=== PATIENT | female | born 1980 | race Caucasian/White ===

== ENCOUNTER → 2016-12-24 | Outpatient (CLI) | payer OTHER ==
--- NOTE | 2016-12-24 15:14 | US ---
EXAMINATION TYPE: US bladder DATE OF EXAM: 12/24/2016 COMPARISON: NONE CLINICAL HISTORY: N39.44 BEDWETTING. Pt states bedwetting x 3 months EXAM MEASUREMENTS: Post Void Residual Volume: 1.7 mL Pt stated at time of exam bladder felt very full before voiding Color Doppler performed to assess ureteral jets. Bilateral Jets seen: Only left jet visualized Normal Post Void Residual (less than 50ml): Yes IMPRESSION: Bladder distends normally with no significant post void residual.
== END | disposition home or self-care (01) ==
LOC: RADUSWWP 14:37
PROVIDERS: ATTEND Family Medicine
DX: N39.44 Nocturnal enuresis (principal)
CPT/HCPCS: 76857

== ENCOUNTER → 2016-12-26 | Outpatient (CLI) | payer OTHER ==
--- NOTE | 2016-12-26 15:15 | FL ---
Voiding cystourethrogram HISTORY: Nocturnal enuresis, N39.44 Patient's urinary bladder was catheterized by the radiology nurse. Patient's urinary bladder was filled in a retrograde manner under intermittent fluoroscopic observati on with radiographic contrast. 1 minute 2 seconds fluoroscopy time supplied. Under real-time fluoroscopy the patient was asked to void in the lateral projection following removal of the catheter. Urinary bladder shows no filling defect. There is normal emptying of the urinary bladder, urethra etelvina ws a normal appearance. Fallopian tubal ligation clips are noted incidentally. IMPRESSION: Normal voiding cystourethrogram.
== END | disposition home or self-care (01) ==
LOC: RADFLWHC 13:42
PROVIDERS: ATTEND Family Medicine
DX: N39.44 Nocturnal enuresis (principal); Z88.1 Allergy status to other antibiotic agents
CPT/HCPCS: 74455; Q9962

== ENCOUNTER → 2017-01-01 | Outpatient (CLI) | payer OTHER ==
--- NOTE | 2017-01-02 07:40 | EEG ---
DATE OF SERVICE: 01/01/2017 ELECTROENCEPHALOGRAPHIC EXAMINATION REPORT INDICATION FOR EXAMINATION: This patient is a 36-year-old female being evaluated for a possible seizure disorder. Patient has history of epileptic seizures as a trial period. Patient now with bedwetting. This is a sleep- deprived EEG. AGE: 36 EEG FINDINGS: A routine, 21 channel awake digital EEG recording was accomplished utilizing the 10 - 20 international system with bipolar and referential montages. The background activity in the most alert resting state consists of a low to medium amplitude, fairly well-developed and well-sustained 7 - 8 Hz activity over the posterior head regions. This posterior rhythm attenuates to eye opening. There is a small amount of low amplitude 18 - 20 Hz beta activity seen maximally over the anterior head regions. Muscle and movement artifact was observed on a few occasions during the tracing. Hyperventilation failed to add any additional information to the tracing. No further activation was noted. Photic stimulation at flash frequencies of 2 - 30 Hz produced a minimal occipital driving response. No epileptiform discharges were seen. IMPRESSION: This was a normal sleep-deprived EEG. The EEG failed to reveal any focal, lateralized or epileptiform abnormalities. Patient did not show much levels of deep sleep during this recording. May consider repeat study if indicated. Clinical correlation is recommended. RUTH
== END | disposition home or self-care (01) ==
LOC: NEUROMAIN 09:31
PROVIDERS: ATTEND Family Medicine
DX: R56.9 Unspecified convulsions (principal)
CPT/HCPCS: 95819

== ENCOUNTER → 2017-09-24 | Outpatient (CLI) | payer OTHER ==
--- NOTE | 2017-09-25 08:53 | MM ---
Reason for exam: clinical finding. Baseline mammogram. History: Family history of breast cancer in maternal cousin at age 30. Indicated problem(s): lump or thickening in the right breast. Physical Findings: Nurse Summary: 1cm, 0.5cm nodule in the right breast at 11 o'clock (nurse mj). [facility] Diagnostic Mammo w CAD JUVENAL Bilateral CC and MLO view(s) were taken. The breast tissue is heterogeneously dense. This may lower the sensitivity of mammography. Two palpable markers upper outer quadrant right breast. Extensive regional calcifications upper outer quadrant in dense tissues. The majority of these layer compatible with benign milk of calcium. Some underlying nodularity right upper outer quadrant. These results were verbally communicated with the patient and result sheet given to the patient on 09/24/17. ASSESSMENT: Incomplete: need additional imaging evaluation, BI-RAD 0 RECOMMENDATION: Ultrasound of the right breast. (upper outer quadrant including palpables)
--- NOTE | 2017-09-25 09:02 | USB ---
Reason for exam: additional evaluation requested from abnormal screening. History: Family history of breast cancer in maternal cousin at age 30. US Breast Limited RT Right limited breast ultrasound including focal area of concern, retroareolar and axilla demonstrates a 1.1 x 0.8 x 0.4cm oval complex cyst versus cyst cluster at 9 o'clock for which a 6 month follow up is recommended, a 0.7 x 0.9 x 0.5cm oval, cystic, lobulated, benign lesion at 10 o'clock, a 1.7 x 1.9 x 1.6cm oval, cystic, palpable, benign lesion at 10 o'clock and a 1.0 x 0.9 x 0.8cm oval, cystic, palpable, benign lesion at 10 o'clock. These results were verbally communicated with the patient and result sheet given to the patient on 09/24/17. ASSESSMENT: Probably benign, BI-RAD 3 RECOMMENDATION: Follow-up diagnostic mammogram and ultrasound of the right breast in 6 months.
== END | disposition home or self-care (01) ==
LOC: RADMAMWWP 13:25
PROVIDERS: ATTEND Family Medicine
DX: N63.0 Unspecified lump in unspecified breast (principal); R92.8 Other abnormal and inconclusive findings on diagnostic imaging of breast; Z80.3 Family history of malignant neoplasm of breast
CPT/HCPCS: 77066

== ENCOUNTER → 2018-06-12 | Outpatient (CLI) | payer OTHER ==
--- NOTE | 2018-06-12 21:33 | MR ---
EXAMINATION TYPE: MR lumbar spine wo con DATE OF EXAM: 06/12/2018 COMPARISON: 12/24/2014 HISTORY: Degenerative disc change, low back pain x10 years CONTRAST: 0 mL intravenous Gadavist. TECHNIQUE: Multiplanar, multisequence images of the lumbar spine were acquired. FINDINGS: Scoliosis is present. Cord terminates at the L1 level. L5-S1: Broad-based disc bulge is present with mild anterior thecal sac compression. No AP spinal marty l stenosis present. Some extension of disc into the left foramen may be present mild left foraminal s tenosis is present. This is smaller than the prior disc herniation at this level. L4-L5: No significant disc bulge or disc herniation. No spinal canal stenosis. No foraminal stenosi s. Mild facet hypertrophy is present. L3-L4: No significant disc bulge or disc herniation. No spinal canal stenosis. No foraminal stenosi s. Mild facet hypertrophy is present L2-L3: Mild flattening of the thecal sac from mild disc bulge is present. No AP spinal canal stenosis is present. No spinal canal stenosis. No foraminal stenosis. L1-L2: No significant disc bulge or disc herniation. No spinal canal stenosis. No foraminal stenosi s. T12-L1: No significant disc bulge or disc herniation. No spinal canal stenosis. No foraminal stenos is. IMPRESSION: 1. L5-S1 left paracentral disc herniation is diminished in size from the comparison.
== END ==
LOC: RADMRIMAIN 16:06
PROVIDERS: ATTEND Physical Medicine & Rehabilitation
DX: M51.27 Other intervertebral disc displacement, lumbosacral region (principal)
CPT/HCPCS: 72148

== ENCOUNTER 2018-08-28 09:29 | Day surgery (SDC) | payer OTHER ==
[2018-08-28 10:07] VITALS: TEMP 98.3
[2018-08-28] MEDS ORDERED: LACTATED RINGERS 1,000 ML IV SCH (10:17)
--- NOTE | 2018-08-28 11:04 | P.PCN ---
Date of Procedure: 08/28/18 Procedure(s) Performed: PREOPERATIVE DIAGNOSIS: 1- Lumbar herniated disc disease. 2-Lumbar radiculopathy. 3-right sacroiliitis POSTOPERATIVE DIAGNOSIS: Same as preop diagnosis. PROCEDURE 1. Lumbar epidural steroid injection under fluoroscopic guidance at the L5-S1 level. 2. Lumbar epidurogram. 3-right sacroiliac joint steroid injections under fluoroscopy guidance ANESTHESIA: Local with 1% lidocaine 3 ml and , moderate sedation with intravenous Versed 2 mg ,and fentanyle 100 Mcg EBL: Minimal PROCEDURE INDICATION: The patient with low back pain and radiculitis symptoms unresponsive to conservative treatment. Fluoroscopy was used to optimize visualization of the needle placement and to maximize safety. PROCEDURE DESCRIPTION / TECHNIQUE: The patient was seen and identified in the preoperative area. Risks, benefits, complications including but not limited to infections ,bleeding ,allergic reaction to the medications ,nerve damage and not complete pain releife , and alternatives were discussed with the patient. The patient agreed to proceed with the procedure and signed the consent. IV was started, and vital signs were stable. Patient was taken to the OR and time out was completed. The patient was placed in the prone position on procedure table and a pillow was placed under the abdomen to reduce lumbar lordosis. The lumbosacral area was prepped and draped in the usual sterile fashion.ere closely monitored during the procedure. Conscious sedation was used during the procedure to decrease patients anxiety. Vital signs was monitered during the entire procedure. Using anterior-posterior fluoroscopy, the L5-S1 interlaminar space was identi fied and the skin over this site was marked and then infiltrated with 1% lidocaine subcutaneously. Subsequently, a 20-gauge Tuohy epidural needle was inserted and advanced toward the epidural space using the ``Loss of resistance technique and guided by AP and lateral fluoroscopy. The correct needle position in the epidural space was verified with the injection of 2 mL of the water soluble contrast dye Isovue 200 contrast and observing an excellent epidurogram with the epidural spread of the dye, after negative aspiration for blood and CSF and in the absence of paresthesias. Again after negative aspiration, a 6 ml mixture containing 60 mg of Depo-medrol , and 2 ml of preservative free Normal Saline, and 2 ml of preservative free lidocaine 1% solution was injected and a washout of epidurogram was seen. Description of the procedure for the right sacroiliac joint = , Then under strict sterile technique, fthe right sacroiliac joint the which was identified under fluoroscopy guidance been local infiltration of the skin and subcu interstitial with lidocaine 1% then 25-gauge Quincke Needle advanced slowly under fluoroscopy and placed in the right sacroiliac joint needle placement confirmed with AP and oblique and lateral view and after appropriate needle placement confirmed and after negative aspiration, or heme , then Ropivacaine 0.5% 3 mL, and 20 mg of Depo-Medrol mixed together and injected in the right sacroiliac joint after negative aspiration patient tolerated the procedure well without any complication. COMPLICATIONS: None DISPOSITION / PLANS: The patient was placed in a supine position and transferred to the recovery area in a stable condition for observation. There was no evidence of lower extremity motor or sensory deficit after the procedure. Patient was discharged from the recovery room after meeting discharge criteria. Home discharge instructions were given to the patient by the staff. The patient was reexamined prior to discharge. The patient will schedule a follow up in the clinic in 2-4 weeks.
[2018-08-28] MEDS ORDERED: IV FLUID CONTINUATION 1,000 ML IV ONE (11:05)
[2018-08-28 11:10] VITALS: BP 100/52; PULSE 79; RESP 18
--- NOTE | 2018-08-28 14:35 | FL ---
Fluoroscopy INDICATION: Pain FINDINGS: Fluoroscopy time: 5 seconds. Images obtained: 2. IMPRESSIONS: 1. Documentation of fluoroscopy.
== END 2018-08-28 11:33 | disposition home or self-care (01) ==
LOC: ORPAIN 09:29
PROVIDERS: ATTEND Specialist
DX: M51.16 Intervertebral disc disorders with radiculopathy, lumbar region (principal); M46.1 Sacroiliitis, not elsewhere classified; Z88.7 Allergy status to serum and vaccine
CPT/HCPCS: 81025; 62323; J2250; J1030; J3010; Q9966; G0260; 27096; 99152

== ENCOUNTER 2018-09-11 10:05 | Day surgery (SDC) | payer OTHER ==
[2018-09-10 12:03] VITALS: BMI 23.8
[~2018-09-11 10:05] MED LIST: LACTATED RINGERS 1,000 ML IV SCH
[2018-09-11 10:51] VITALS: TEMP 97.2
[2018-09-11] MEDS ORDERED: LIDOCAINE 1% 20 ML VIAL (10MG/ML) FOR IV START INTRADERMA ONE (10:57)
--- NOTE | 2018-09-11 11:30 | P.PCN ---
Date of Procedure: 09/11/18 Procedure(s) Performed: PREOPERATIVE DIAGNOSIS: 1- Lumbar herniated disc disease. 2-Lumbar radiculopathy. 3-right sacroiliitis POSTOPERATIVE DIAGNOSIS: Same as preop diagnosis. PROCEDURE 1. Lumbar epidural steroid injection under fluoroscopic guidance at the L5-S1 level. 2. Lumbar epidurogram. 3-right sacroiliac joint steroid injections under fluoroscopy guidance ANESTHESIA: Local with 1% lidocaine 3 ml and , moderate sedation with intravenous Versed 2 mg ,and fentanyle 150 Mcg EBL: Minimal PROCEDURE INDICATION: The patient with low back pain and radiculitis symptoms unresponsive to conservative treatment. Fluoroscopy was used to optimize visualization of the needle placement and to maximize safety. PROCEDURE DESCRIPTION / TECHNIQUE: The patient was seen and identified in the preoperative area. Risks, benefits, complications including but not limited to infections ,bleeding ,allergic reaction to the medications ,nerve damage and not complete pain releife , and alternatives were discussed with the patient. The patient agreed to proceed with the procedure and signed the consent. IV was started, and vital signs were stable. Patient was taken to the OR and time out was completed. The patient was placed in the prone position on procedure table and a pillow was placed under the abdomen to reduce lumbar lordosis. The lumbosacral area was prepped and draped in the usual sterile fashion.ere closely monitored during the procedure. Conscious sedation was used during the procedure to decrease patients anxiety. Vital signs was monitered during the entire procedure. Using anterior-posterior fluoroscopy, the L5-S1 interlaminar space was identified and the skin over this site was marked and then infiltrated with 1% lidocaine subcutaneously. Subsequently, a 20-gauge Tuohy epidural needle was inserted and advanced toward the epidural space using the ``Loss of resistance technique and guided by AP and lateral fluoroscopy. The correct needle position in the epidural space was verified with the injection of 2 mL of the water soluble contrast dye Isovue 200 contrast and observing an excellent epidurogram with the epidural spread of the dye, after negative aspiration for blood and CSF and in the absence of paresthesias. Again after negative aspiration, a 6 ml mixture containing 60 mg of Depo-medrol , and 2 ml of preservative free Normal Saline, and 2 ml of preservative free lidocaine 1% solution was injected and a washout of epidurogram was seen. Description of the procedure for the right sacroiliac joint = , Then under strict sterile technique, fthe right sacroiliac joint the which was identified under fluoroscopy guidance been local infiltration of the skin and subcu interstitial with lidocaine 1% then 25-gauge Quincke Needle advanced slowly under fluoroscopy and placed in the right sacroiliac joint needle plac ement confirmed with AP and oblique and lateral view and after appropriate needle placement confirmed and after negative aspiration, or heme , then Ropivacaine 0.5% 3 mL, and 20 mg of Depo-Medrol mixed together and injected in the right sacroiliac joint after negative aspiration patient tolerated the procedure well without any complication. COMPLICATIONS: None DISPOSITION / PLANS: The patient was placed in a supine position and transferred to the recovery area in a stable condition for observation. There was no evidence of lower extremity motor or sensory deficit after the procedure. Patient was discharged from the recovery room after meeting discharge criteria. Home discharge instructions were given to the patient by the staff. The patient was reexamined prior to discharge. The patient will schedule a follow up in the clinic in 2-4 weeks.
[2018-09-11] MEDS ORDERED: IV FLUID CONTINUATION 1,000 ML IV ONE (11:32)
[2018-09-11 11:36] VITALS: RESP 18
--- NOTE | 2018-09-11 11:37 | FL ---
EXAMINATION TYPE: FL guided pain mgmt statistic DATE OF EXAM: 09/11/2018 CLINICAL HISTORY: Sacroiliac joint pain. TECHNIQUE: Fluoroscopy. COMPARISON: None. FINDINGS: Fluoroscopic guidance was provided during pain relief procedure performed by Dr. Gonzalez . A total of 6 seconds of fluoroscopic time was utilized during the procedure and two spot images ar e acquired. Images acquired shows needle localization of the sacroiliac joints. IMPRESSION: As Above.
[2018-09-11 12:04] VITALS: BP 100/68; PULSE 67
== END 2018-09-11 12:05 | disposition home or self-care (01) ==
LOC: ORPAIN 10:05
PROVIDERS: ATTEND Specialist
DX: M51.16 Intervertebral disc disorders with radiculopathy, lumbar region (principal); M46.1 Sacroiliitis, not elsewhere classified; Z88.2 Allergy status to sulfonamides; Z88.1 Allergy status to other antibiotic agents
CPT/HCPCS: 81025; 62323; J2250; J1030; J3010; Q9966; G0260; 27096; 99152

== ENCOUNTER → 2018-10-02 | Outpatient (CLI) | payer OTHER ==
[2018-10-02 13:19] VITALS: BP 105/68; PULSE 71; RESP 18
--- NOTE | 2018-10-02 13:51 | P.PN ---
Progress Note - Text Progress Note Date: 10/02/18 This is a 38-year-old female who presents for her first follow-up visit after 2 epidural steroid injections starting the left L5-S1 interspace. She is reporting relief greater than 50% of radicular symptoms. She still having some pain in the posterior aspect of her left leg however significantly diminished. Her chief complaint today is neck pain as well as weakness in her upper and lower extremities. She states that her gait has been off over the past 4-6 months. Even her significant other has commented that she walks "as if she is drunk". Pain is worse on the right side with radiating pain periodically into her right bicep. She's noticed difficulty with handling objects and dropping items frequently. VAS today is a 4-6 out of 10 in severity mostly in her neck and into her right shoulder and upper arm. Aggravating factors are rotation of her head, activity, and reaching for objects. Alleviating factors are rest and placing her right arm above her head. In addition to above, 13-point review of systems is also negative for chest pain, shortness of breath, changes in vision, changes in hearing, new onset weakness, abdominal pain, diarrhea, extreme fatigue, malaise, fever, skin changes, homicidal or suicidal ideation, or bowel or bladder incontinence. Vital Signs: Reviewed in EMR Gen: WDWN, AAOx3, NAD HEENT: NCAT, EOMI, hearing grossly normal Pulm: resp unlabored Abd: soft, NT, ND Neck: supple, trachea midline Cervical Spine motor stregnth in the deltoid normal, symmetrical weakness in bilateral bicep flexion motor stregnth biceps and the wrist ex tensors normal bilateral motor stregnth in the triceps symmetrically decreased bilaterally Deep tendon reflexes 3+ right bicep, diminished left biceps and brachial radialis Spurling test: positive Neck distraction test: positive Wren sign: positive on the right positive cervical facet loading test . Lumber spine moter stegnth lower extremities ,thigh and legs 5/5 Right side , 5/5 Left side deep tendon reflexes : 3+ right patella , 2+ left patella Positive paresthesia on the left anterior thigh positive lumber facet Loading Test Range of motion of the lumbar spine Flexion 30 degrees, extension 10 degrees strait leg raising test , positive at 45 degree Fabere test positive RT and positive LT . Severe tenderness over the sacroiliac joint on the right side only Neuro: CN II-XII grossly intact, muscle strength lower extremities PRESERVED Imaging: MRI lumbar spine reviewed showing left neural foraminal impingement L5- S1. Cervical MRI from 2016 reviewed that showed bulging disc at C5-C6 without any significant thecal sac effacement. Assessment: 1. Lumbar radiculopathy 2. Cervical spinal stenosis with myelopathy 3. Lumbar spondylosis 4. Tobacco dependency Plan: 1. Explanation: Opioid and psychological risk scores were reviewed. Diagnoses, prognoses, and multiple treatment options including but not limited to physical therapy, interventional therapies, adjuvant medical therapies, narcotic medication therapies, and surgery were discussed with the patient and all questions were answered to the patient's satisfaction. 2. Opioid agreement: None 3. Counseling: The patient was counseled extensively on SMOKING CESSATION and EXERCISE. Specifically, the patient was instructed regarding the importance of smoking cessation, counseling was given. 4. Procedures: Left lumbar epidural steroid injection L5-S1 #3 5. Consultations: Consider referral to workers compensation specialist after review of cervical MRI 6. Investigations: MRI cervical spine without contrast 7. Medications: None 8. Disposition: After reviewing patient's MRI of her cervical spine from 2016 I'm concerned she could be experiencing progression of pathology at C5-C6. Her progressive gait disturbance is over the past 4-6 months, upper and lower extremity weakness, and hyperreflexia on the right side and concern for spinal stenosis with myelopathy. I'm ordering a repeat MRI of her cervical spine without contrast and encouraged her to completed prior to her third epidural steroid injection so it can be reviewed with the physician that day. We discussed that she may need cervical epidural steroid injections and/or consultation to a workers compensation specialist if decompression surgery is required. Patient had full understanding of ongoing issue and we'll get the MRI done immediately. All questions were answered in detail. PQRS measures: 1-Patient's medications are documented in the chart. 2-Tobacco use is positive, counseling given 3-Patient has not had a pneumococcal vaccine. 4-Advanced care planning discussed, patient unable to give. 5-Opioid contract signed with the patient. 6-Pain positive, follow-up visit or procedure scheduled 7-Patient's blood pressure measured and documented, and WNL. 8-Patient's weight was measured, and body mass index normal 9-Patient WAS NOT identified as an unhealthy alcohol user.
== END | disposition home or self-care (01) ==
LOC: PNWHC3 13:04
PROVIDERS: ATTEND Anesthesiology
DX: M48.02 Spinal stenosis, cervical region (principal); M47.26 Other spondylosis with radiculopathy, lumbar region; F17.200 Nicotine dependence, unspecified, uncomplicated; Z71.6 Tobacco abuse counseling
CPT/HCPCS: 99211

== ENCOUNTER → 2018-10-11 | Outpatient (CLI) | payer OTHER ==
--- NOTE | 2018-10-11 18:15 | MR ---
EXAMINATION TYPE: MR cervical spine wo con DATE OF EXAM: 10/11/2018 COMPARISON: Prior cervical spine MRI 06/29/2015 HISTORY: Spinal stenosis, cervical / Radiculopathy. Hx of clavicle surgery TECHNIQUE: Multiplanar, multisequence images of the cervical spine were acquired. C2-C3: No evidence for degenerative disc disease. No disc bulge/herniation or protrusion. No Canal stenosis. Foramina are patent bilaterally. C3-C4: No evidence for degenerative disc disease. No disc bulge/herniation or protrusion. No Canal stenosis. Foramina are patent bilaterally. C4-C5: No significant abnormality. C5-C6: Posterior broad-based disc bulge causes mild anterior mass effect on the thecal sac as on prio r exam. Uncovertebral joint hypertrophy results in bilateral foraminal encroachment. C6-C7: No evidence for degenerative disc disease. No disc bulge/herniation or protrusion. No Canal stenosis. Foramina are patent bilaterally. C7-T1: No evidence for degenerative disc disease. No disc bulge/herniation or protrusion. No Canal stenosis. Foramina are patent bilaterally. Cervical segments are intact. There is normal alignment. Cervical spinal cord is of normal signal. Craniovertebral junction relationships are within normal limits. Cervical vertebral bodies show pre served height. Bone marrow signal is stable. Loss of disc height again noted at C5-6. IMPRESSION: Stable mild degenerative disc disease.
== END | disposition home or self-care (01) ==
LOC: RADMRIMAIN 08:27
PROVIDERS: ATTEND Anesthesiology
DX: M50.122 Cervical disc disorder at C5-C6 level with radiculopathy (principal)
CPT/HCPCS: 72141

== ENCOUNTER 2018-10-14 06:35 | Day surgery (SDC) | payer OTHER ==
[2018-10-09 11:22] VITALS: BMI 22.3
[2018-10-14 06:52] VITALS: RESP 16; TEMP 98.2
[2018-10-14] MEDS ORDERED: LIDOCAINE 1% 20 ML VIAL (10MG/ML) FOR IV START INTRADERMA ONE (07:03)
--- NOTE | 2018-10-14 07:55 | P.PCN ---
Date of Procedure: 10/14/18 Surgeon: Ronn Arzola Pathology: none sent Condition: stable Disposition: PACU Description of Procedure: PREOPERATIVE DIAGNOSIS: 1-Lumbar radiculopathy 2- Lumber Degenerative Disc Diseases. POSTOPERATIVE DIAGNOSIS: 1-Lumbar Degenerative Disc Diseases PROCEDURE 1. Lumbar epidural steroid injection under fluoroscopic guidance at the L5-S1 level in the left paramedian approach 2. Lumbar epidurogram. ANESTHESIA: Local with 1% lidocaine; and IV moderate conscious sedation with Versed and fentanyl EBL: Minimal PROCEDURE INDICATION: The patient with low back pain and radiculitis symptoms unresponsive to conservative treatment. Fluoroscopy was used to optimize visualization of the needle placement and to maximize safety. PROCEDURE DESCRIPTION / TECHNIQUE: The patient was seen and identified in the preoperative area. Risks, benefits, complications including but not limited to infections ,bleeding ,allergic reaction to the medications ,nerve damage and not complete pain relief , and alternatives were discussed with the patient. The patient agreed to proceed with the procedure and signed the consent. IV was started, and vital signs were stable. Patient was taken to the OR and time out was completed. The patient was placed in the prone position on procedure table and a pillow was placed under the abdomen to reduce lumbar lordosis. The lumbosacral area was prepped and draped in the usual sterile fashion with ChloraPrep.Patient was closely monitored during the procedure. Conscious sedation was used during the procedure to decrease patients anxiety. Vital signs were monitered during the entire procedure. Using anterior-posterior fluoroscopy, the L5-S1 interlaminar space was identified and the skin over this site was marked and then infiltrated with 1% lidocaine subcutaneously. Subsequently, a 18-gauge Tuohy epidural needle was inserted and advanced toward the epidural space using the Loss of resistance to air technique and guided by AP and lateral fluoroscopy. The correct needle position in the epidural space was verified with the injection of 1 mL of the water soluble contrast dye Omnipaque 180 contrast and observing an excellent epidurogram with the epidural spread of the dye, after negative aspiration for blood and CSF and in the absence of paresthesias. Again after negative aspiration, a 8 ml mixture containing 40 mg of Kenalog and 5 ml of preservative free Normal Saline, and 2 ml of preservative free ropivacaine 0.5% solution was injected and a washout of epidurogram was seen. Needle was withdrawn intact, skin was cleansed, and bandages were applied. patient tolerated procedure well and was transferred to PACU in stable condition. COMPLICATIONS: None DISPOSITION / PLANS: The patient was placed in a supine position and transferred to the recovery area in a stable condition for observation. There was no evidence of lower extremity motor or sensory deficit after the procedure. Patient was discharged from the recovery room after meeting discharge criteria. Home discharge instructions were given to the patient by the staff. The patient was reexamined prior to discharge. The patient will schedule a follow up in the clinic in 2-4 weeks.
[2018-10-14] MEDS ORDERED: IV FLUID CONTINUATION 1,000 ML IV ONE (08:02)
[2018-10-14 08:21] VITALS: BP 96/63; PULSE 50
--- NOTE | 2018-10-14 09:06 | FL ---
EXAMINATION TYPE: FL guided pain mgmt statistic DATE OF EXAM: 10/14/2018 CLINICAL HISTORY: Low back pain. TECHNIQUE: Fluoroscopy. COMPARISON: None. FINDINGS: Fluoroscopic guidance was provided during pain relief procedure performed by Dr. Arzola . A total of 8 seconds of fluoroscopic time was utilized during the procedure and two spot images are acquired. Images acquired shows needle localization with contrast injection at L5 level. IMPRESSION: As Above.
== END 2018-10-14 08:33 | disposition home or self-care (01) ==
LOC: ORPAIN 06:35
PROVIDERS: ATTEND Anesthesiology
DX: M51.16 Intervertebral disc disorders with radiculopathy, lumbar region (principal); M48.02 Spinal stenosis, cervical region; M47.26 Other spondylosis with radiculopathy, lumbar region; Z71.6 Tobacco abuse counseling; F17.200 Nicotine dependence, unspecified, uncomplicated
CPT/HCPCS: 81025; 62323; J2250; J3301; J3010; Q9966; 99152

== ENCOUNTER 2018-10-28 17:51 | Inpatient (IN) | payer OTHER ==
[2018-10-28] MEDS ORDERED: ONDANSETRON 4 MG/2 ML VIAL IVP STA (18:27)
[2018-10-28] MEDS ORDERED: MORPHINE SULFATE 2 MG/ML SYRINGE IVP STA (18:27)
[2018-10-28 18:43] LABS: Basophils # (A) 0.1 k/uL (0-0.2); Basophils % (A) 1 %; Eosinophils # (A) 0.3 k/uL (0-0.7); Eosinophils % (A) 3 %; HCT 31.6 % (34.0-46.0); HGB 10.4 gm/dL (11.4-16.0); Lymphocytes # (A) 2.7 k/uL (1.0-4.8); Lymphocytes % (A) 28 %; MCH 29.9 pg (25.0-35.0); MCHC 32.9 g/dL (31.0-37.0); MCV 90.9 fL (80.0-100.0); Mean Platelet Volume 7.4; Monocytes # (A) 0.4 k/uL (0-1.0); Monocytes % (A) 4 %; Neutrophils # (A) 6.1 k/uL (1.3-7.7); Neutrophils % (A) 63 %; Platelet Count 374 k/uL (150-450); RBC 3.47 m/uL (3.80-5.40); RDW 13.2 % (11.5-15.5); WBC 9.7 k/uL (3.8-10.6)
[2018-10-28] MEDS: SODIUM CHLORIDE 0.9% 2,000 ML IV STA ×2 (18:45→19:32)
[2018-10-28 18:55] LABS: ALT 14 U/L (9-52); AST 16 U/L (14-36); African American GFR (CKD) >90 (>60 ml/min/1.73 sqM); Albumin 3.9 g/dL (3.5-5.0); Alkaline Phosphatase 60 U/L (38-126); Amylase 69 U/L (30-110); Anion Gap 6 mmol/L; Blood Urea Nitrogen 11 mg/dL (7-17); Calcium 9.2 mg/dL (8.4-10.2); Carbon Dioxide 25 mmol/L (22-30); Chloride 108 mmol/L (98-107); Glucose 102 mg/dL (74-99); Lipase 133 U/L (23-300); Sodium 139 mmol/L (137-145); Total Bilirubin 0.3 mg/dL (0.2-1.3)
--- NOTE | 2018-10-28 19:07 | ED ---
Abdominal Pain HPI - General Chief Complaint: Abdominal Pain Stated Complaint: abdominal pain Time Seen by Provider: 10/28/18 18:14 Source: patient Mode of arrival: ambulatory Limitations: no limitations - History of Present Illness Initial Comments: 38-year-old female patient presents to the emergency department today for evaluation of right upper quadrant abdominal pain. Patient states she has been having the pain intermittently for the last 2 days. Patient states pain is severe in the area is very tender to touch. She says she has chronic low back pain but this has increased since the pain started. Patient states this does cause her to be short of breath. She denies any chest pain with this. Denies any cough or congestion. Patient states that she has had multiple abdominal surgeries including cholecystectomy, appendectomy, multiple C-sections, and a abdominoplasty. Patient states that she has been having intermittent and constipation alternating with diarrhea. States that she did have one episode of maroon-colored stool but denies any bright red blood or dark tarry stools. States he has been chilled but denies fever. Denies any hematuria, dysuria, urinary frequency, urinary urgency. States that she has had a uterine ablation and no longer has periods. Denies any abnormal vaginal bleeding or discharge. Patient denies any recent rash, numbness, tingling, headache, visual changes, or any other complaints. - Related Data Home Medications Medication Instructions Recorded Confirmed Dextroamphetamine/Amphetamine 20 mg PO BID 02/07/14 10/28/18 [Adderall] ALPRAZolam [Xanax] 1 mg PO TID PRN 08/11/18 10/28/18 Albuterol Inhaler [Ventolin Hfa 1 - 2 puff INHALATION RT-Q6H PRN 08/11/18 10/28/18 Inhaler] Budesonide-Formot 160-4.5 Mcg 2 puff INHALATION 1400 08/11/18 10/28/18 [Symbicort 160-4.5 Mcg Inhaler] Ergocalciferol (Vitamin D2) 50,000 unit PO Q30D 08/11/18 10/28/18 [Vitamin D2] Fluticasone Nasal [place] [Flonase 1 spray EA NOSTRIL DAILY PRN 08/11/18 10/28/18 Nasal [place]] Gabapentin [Neurontin] 600 mg PO QID 08/11/18 10/28/18 Hydrochlorothiazide 12.5 mg PO DIRECTED PRN 08/11/18 10/28/18 Ibuprofen [Motrin] 800 mg PO QID 08/11/18 10/28/18 Ranitidine HCl [Zantac] 150 mg PO BID 08/11/18 10/28/18 rOPINIRole HCL 0.5 mg PO HS 08/11/18 10/28/18 tiZANidine HCL [Zanaflex] 2 mg PO DAILY 08/11/18 10/28/18 traZODone HCL 100 mg PO HS 08/11/18 10/28/18 FLUoxetine HCL [PROzac] 20 mg PO DAILY 09/11/18 10/28/18 Allergies Allergy/AdvReac Type Severity Reaction Status Date / Time sulfamethoxazole Allergy Rash/Hives, Verified 10/28/18 18:13 [From Bactrim] SEIZURE trimethoprim [From Bactrim] Allergy Rash/Hives Verified 10/28/18 18:13 tdap Allergy Anaphylaxis Uncoded 10/28/18 18:04 Review of Systems ROS Statement: Those systems with pertinent positive or pertinent negative responses have been documented in the HPI. ROS Other: All systems not noted in ROS Statement are negative. Past Medical History Past Medical History: Asthma, COPD, Fibromyalgia, GERD/Reflux, Osteoarthritis (OA), Respiratory Disorder, Rheumatoid Arthritis (RA) Additional Past Medical History / Comment(s): PANCREATITIS, RESTLESS LEG History of Any Multi-Drug Resistant Organisms: None Reported Past Surgical History: Appendectomy, Section, Cholecystectomy, Tonsillectomy, Tubal Ligation, Uterine Ablation Additional Past Surgical History / Comment(s): PANNICULECTOMY; Uterine ablation with fissure clips. Left collarbone surgery - shanna placement, bone graft, jonh carpal tunnel, benign rt breast bx. Left C6 Transforaminal Epidural steroid injection Jan 2017 at [facility]. C5/6 nerve Root block Jan 2017 at [facility], PAIN CLINIC PROCEDURES Past Anesthesia/Blood Transfusion Reactions: No Reported Reaction Past Psychological History: ADD/ADHD, Anxiety, Bipolar, Depression Smoking Status: Current every day smoker - Past Family History Mother Family Medical History: Deep Vein Thrombosis (DVT) Additional Family Medical History / Comment(s): leiden factor 5 General Exam Limitations: no limitations General appearance: alert, in no apparent distress, other (This a well-devel oped, well-nourished adult female patient in mild distress related to pain. Vital signs upon presentation are temperature 98.7F, pulse 103, respirations 18, blood pressure 73/49, pulse ox 97% on room air.) Eye exam: Present: normal appearance, PERRL, EOMI. Absent: scleral icterus, conjunctival injection, periorbital swelling ENT exam: Present: normal exam, normal oropharynx, mucous membranes moist Respiratory exam: Present: normal lung sounds bilaterally. Absent: respiratory distress, wheezes, rales, rhonchi, stridor Cardiovascular Exam: Present: regular rate, normal rhythm, normal heart sounds. Absent: systolic murmur, diastolic murmur, rubs, gallop, clicks GI/Abdominal exam: Present: soft, tenderness (Right upper quadrant tenderness), guarding, normal bowel sounds. Absent: distended, rebound, rigid Neurological exam: Present: alert, oriented X3, CN II-XII intact Psychiatric exam: Present: normal affect, normal mood Skin exam: Present: warm, dry, intact, normal color. Absent: rash Course Vital Signs 10/28/18 10/28/18 10/28/18 18:03 18:25 18:46 Temperature 98.7 F Pulse Rate 103 H 71 63 Respiratory 18 18 16 Rate Blood Pressure 73/49 76/55 79/64 O2 Sat by Pulse 97 100 99 Oximetry 10/28/18 10/28/18 10/28/18 19:10 19:36 20:11 Temperature Pulse Rate 76 67 72 Respiratory 18 16 16 Rate Blood Pressure 91/64 96/62 86/64 O2 Sat by Pulse 97 100 100 Oximetry 10/28/18 21:15 Temperature Pulse Rate 71 Respiratory 17 Rate Blood Pressure 102/58 O2 Sat by Pulse 99 Oximetry Medical Decision Making - Medical Decision Making 38-year-old female patient presented to the emergency department today for evaluation of right upper quadrant abdominal pain and tenderness. Patient reported nausea radiation of the pain through to her back and shortness of breath. Upon arrival patient's blood pressure was quite low. Systolic blood pressures ranged from 60-96 mmHg. She was given 2 L of normal saline which did improve pressures. Labs reviewed and were unremarkable. CT abdomen and pelvis was obtained and showed no acute abdominal abnormalities however did show evidence for pneumonitis. Given low blood pressure and severity of abdominal pain and admitted to the hospital for further evaluation. We will start breathing treatments, antibiotics, and steroids for pneumonitis and shortness of breath. She'll be admitted to her primary care physician Dr. Sam. - Lab Data Result diagrams: 10/28/18 18:15 10/28/18 18:15 Lab Results 10/28/18 10/28/18 10/28/18 Range/Units 18:15 18:15 18:15 WBC 9.7 (3.8-10.6) k/uL RBC 3.47 L (3.80-5.40) m/uL Hgb 10.4 L (11.4-16.0) gm/dL Hct 31.6 L (34.0-46.0) % MCV 90.9 (80.0-100.0) fL MCH 29.9 (25.0-35.0) pg MCHC 32.9 (31.0-37.0) g/dL RDW 13.2 (11.5-15.5) % Plt Count 374 (150-450) k/uL Neutrophils % 63 % Lymphocytes % 28 % Monocytes % 4 % Eosinophils % 3 % Basophils % 1 % Neutrophils # 6.1 (1.3-7.7) k/uL Lymphocytes # 2.7 (1.0-4.8) k/uL Monocytes # 0.4 (0-1.0) k/uL Eosinophils # 0.3 (0-0.7) k/uL Basophils # 0.1 (0-0.2) k/uL Sodium 139 (137-145) mmol/L Potassium 4.0 (3.5-5.1) mmol/L Chloride 108 H (98-107) mmol/L Carbon Dioxide 25 (22-30) mmol/L Anion Gap 6 mmol/L BUN 11 (7-17) mg/dL Creatinine 0.56 (0.52-1.04) mg/dL Est GFR (CKD-EPI)AfAm >90 (>60 ml/min/1.73 sqM) Est GFR (CKD-EPI)NonAf >90 (>60 ml/min/1.73 sqM) Glucose 102 H (74-99) mg/dL Plasma Lactic Acid Giancarlo 0.8 (0.7-2.0) mmol/L Calcium 9.2 (8.4-10.2) mg/dL Total Bilirubin 0.3 (0.2-1.3) mg/dL AST 16 (14-36) U/L ALT 14 (9-52) U/L Alkaline Phosphatase 60 (38-126) U/L Troponin I (0.000-0.034) ng/mL Total Protein 7.0 (6.3-8.2) g/dL Albumin 3.9 (3.5-5.0) g/dL Amylase 69 (30-110) U/L Lipase 133 (23-300) U/L Urine Color Urine Appearance (Clear) Urine pH (5.0-8.0) Ur Specific [place] (1.001-1.035) Urine Protein (Negative) Urine Glucose (UA) (Negative) Urine Ketones (Negative) Urine Blood (Negative) Urine Nitrite (Negative) Urine Bilirubin (Negative) Urine Urobilinogen (<2.0) mg/dL Ur Leukocyte Esterase (Negative) Urine RBC (0-5) /hpf Urine WBC (0-5) /hpf Ur Squamous Epith Cells (0-4) /hpf Urine Mucus (None) /hpf Urine Yeast (Budding) (None) /hpf Urine HCG, Qual (Not Detectd) 10/28/18 10/28/18 10/28/18 Range/Units 18:15 Unknown Unknown WBC (3.8-10.6) k/uL RBC (3.80-5.40) m/uL Hgb (11.4-16.0) gm/dL Hct (34.0-46.0) % MCV (80.0-100.0) fL MCH (25.0-35.0) pg MCHC (31.0-37.0) g/dL RDW (11.5-15.5) % Plt Count (150-450) k/uL Neutrophils % % Lymphocytes % % Monocytes % % Eosinophils % % Basophils % % Neutrophils # (1.3-7.7) k/uL Lymphocytes # (1.0-4.8) k/uL Monocytes # (0-1.0) k/uL Eosinophils # (0-0.7) k/uL Basophils # (0-0.2) k/uL Sodium (137-145) mmol/L Potassium (3.5-5.1) mmol/L Chloride (98-107) mmol/L Carbon Dioxide (22-30) mmol/L Anion Gap mmol/L BUN (7-17) mg/dL Creatinine (0.52-1.04) mg/dL Est GFR (CKD-EPI)AfAm (>60 ml/min/1.73 sqM) Est GFR (CKD-EPI)NonAf (>60 ml/min/1.73 sqM) Glucose (74-99) mg/dL Plasma Lactic Acid Giancarlo (0.7-2.0) mmol/L Calcium (8.4-10.2) mg/dL Total Bilirubin (0.2-1.3) mg/dL AST (14-36) U/L ALT (9-52) U/L Alkaline Phosphatase (38-126) U/L Troponin I <0.012 (0.000-0.034) ng/mL Total Protein (6.3-8.2) g/dL Albumin (3.5-5.0) g/dL Amylase (30-110) U/L Lipase (23-300) U/L Urine Color Yellow Urine Appearance Cloudy H (Clear) Urine pH 7.5 (5.0-8.0) Ur Specific [place] 1.039 H (1.001-1.035) Urine Protein Trace H (Negative) Urine Glucose (UA) Negative (Negative) Urine Ketones Negative (Negative) Urine Blood Negative (Negative) Urine Nitrite Negative (Negative) Urine Bilirubin Negative (Negative) Urine Urobilinogen <2.0 (<2.0) mg/dL Ur Leukocyte Esterase Negative (Negative) Urine RBC 2 (0-5) /hpf Urine WBC 1 (0-5) /hpf Ur Squamous Epith Cells 2 (0-4) /hpf Urine Mucus Rare H (None) /hpf Urine Yeast (Budding) Occasional H (None) /hpf Urine HCG, Qual Not Detected (Not Detectd) - EKG Data -: EKG Interpreted by Me EKG Comments: EKG obtained at 1844 shows normal sinus rhythm with a ventricular rate of 68, IL interval 130, QRS duration 84, QTC 398, QTC 423. No evidence of ST elevation or depression. - Radiology Data Radiology results: report reviewed, image reviewed CT abdomen and pelvis with contrast was obtained. Report was reviewed in its entirety. Impression by Dr. Eugene Calzada shows bibasilar groundglass opacity consistent with pneumonitis. Nonspecific and mild hepatomegaly no other findings Disposition Clinical Impression: Pneumonitis, Abdominal pain, Hypotension Disposition: ADMITTED IP TO THIS [facility] Condition: Serious Referrals: Demar Sam MD [Primary Care Provider] - 1-2 days Decision to Admit Reason: Admit from EC Decision Date: 10/28/18 Decision Time: 21:27
--- NOTE | 2018-10-28 20:05 | CT ---
EXAMINATION TYPE: CT abdomen pelvis w con DATE OF EXAM: 10/28/2018 COMPARISON: none HISTORY: Right upper quadrant pain x [address] DLP: 582.7 mGycm Automated exposure control for dose reduction was used. TECHNIQUE: Helical acquisition of images was performed from the lung bases through the pelvis. CONTRAST: Performed without Oral Contrast and with IV Contrast, patient injected with 100 mL of Isovu e 300. FINDINGS: VISUALIZED LOWER THORAX: There is scattered groundglass opacity throughout the axial compartment of t he right and left lung base, consistent with nonspecific pneumonitis. No eddie pulmonary consolidatio n; no atelectasis. No other findings in the visualized lower thorax. LIVER/GB: The craniocaudal liver dimension at the mid clavicular line is 18 cm, top normal 15 cm. The re are no focal lesions. No other liver findings. There is surgical absence of the gallbladder. Bilia ry anatomy unremarkable. PANCREAS: No significant abnormality is seen. Pancreatic ductal anatomy unremarkable. SPLEEN: No significant abnormality is seen. ADRENALS: No significant abnormality is seen. KIDNEYS: No significant abnormality is seen. FREE AIR: No free air is visualized. RETROPERITONEAL ADENOPATHY: None visualized REPRODUCTIVE ORGANS: No significant abnormality is seen URINARY BLADDER: No significant abnormality is seen. PELVIC ADENOPATHY: None visualized. OSSEOUS STRUCTURES: No significant abnormality is seen. BOWEL: No significant abnormality is seen. OTHER: No acute vascular pathology. IMPRESSION: 1. BIBASILAR GROUNDGLASS OPACITY C/W PNEUMONITIS. 2. NONSPECIFIC MILD HEPATOMEGALY; NO OTHER FINDINGS
[2018-10-28 20:40] LABS: Appearance,Urine Cloudy (Clear); Bilirubin,Urine Negative (Negative); Blood,Urine Negative (Negative); Budding Yeast,Urine Occasional /hpf; Color,Urine Yellow; Glucose,Urine (UA) Negative (Negative); Ketones,Urine Negative (Negative); Leukocyte Esterase,Urine Negative (Negative); Mucus,Urine Rare /hpf; Nitrite,Urine Negative (Negative); PH, Urine 7.5 (5.0-8.0); Protein,Urine Trace (Negative); RBC,Urine 2 /hpf (0-5); Specific Gravity,Urine 1.039 (1.001-1.035); Squamous Epithelial Cell,Urine 2 /hpf (0-4); Urobilinogen,Urine <2.0 mg/dL (<2.0); WBC,Urine 1 /hpf (0-5)
[2018-10-28] MEDS ORDERED: ONDANSETRON 4 MG/2 ML VIAL IVP PRN (21:21)
[2018-10-28] MEDS ORDERED: NALOXONE 0.4 MG/ML 1 ML VIAL IV PRN (21:21)
[2018-10-28] MEDS ORDERED: methylPREDNISolone SOD SUCCI 125 MG/2 ML VIAL IV STA (21:23)
[2018-10-28] MEDS ORDERED: IPRATROPIUM-ALBUTEROL 3 ML NEB INHALATION STA (21:23)
[2018-10-28] MEDS ORDERED: AZITHROMYCIN 500 MG in SODIUM CHLORIDE 0.9% 250 ML IVPB STA (21:26)
[2018-10-28] MEDS ORDERED: SODIUM CHLORIDE 0.9% 1,000 ML IV SCH (21:30)
[2018-10-28] MEDS ORDERED: FLUTICASONE 50MCG/SPRAY NASAL 16GM EA NOSTRIL PRN (22:42)
[2018-10-28] MEDS ORDERED: NICOTINE 14MG/24HR PATCH TRANSDERM STA (22:45)
[2018-10-28] MEDS: NICOTINE 14MG/24HR PATCH TRANSDERM SCH (23:09)
[2018-10-28] MEDS: SODIUM CHLORIDE 0.9% 1,000 ML IV SCH (23:10)
[2018-10-28] MEDS: GABAPENTIN 300 MG CAP PO SCH (23:10)
[2018-10-29] MEDS: traZODone HCL 100 MG TAB PO SCH ×2 (03:50→19:36)
[2018-10-29] MEDS: methylPREDNISolone SOD SUCCI 125 MG/2 ML VIAL IV SCH ×4 (05:06→23:43)
[2018-10-29] MEDS: MORPHINE SULFATE 2 MG/ML SYRINGE IV PRN (05:14)
[2018-10-29] MEDS: SODIUM CHLORIDE 0.9% 1,000 ML IV SCH ×3 (06:13→19:46)
[2018-10-29 07:16] LABS: Glucose,Whole Blood 154 mg/dL (75-99)
[2018-10-29] MEDS: ALBUTEROL NEBULIZED 2.5 MG/3 ML INHALATION PRN ×2 (07:16→13:40)
[2018-10-29] MEDS: SYMBICORT 160-4.5 MCG INHALER INHALATION SCH (07:19)
[2018-10-29] MEDS: INSULIN ASPART (NovoLOG) 100 UNIT/ML VIAL SQ SCH ×4 (08:33→20:09)
[2018-10-29 08:46] LABS: Basophils % (A) 0 %; Eosinophils % (A) 0 %; HCT 34.1 % (34.0-46.0); HGB 10.7 gm/dL (11.4-16.0); Lymphocytes # (A) 0.6 k/uL (1.0-4.8); Lymphocytes % (A) 6 %; MCH 29.3 pg (25.0-35.0); MCHC 31.3 g/dL (31.0-37.0); MCV 93.6 fL (80.0-100.0); Mean Platelet Volume 7.3; Monocytes # (A) 0.1 k/uL (0-1.0); Monocytes % (A) 1 %; Neutrophils # (A) 8.8 k/uL (1.3-7.7); Neutrophils % (A) 93 %; Platelet Count 324 k/uL (150-450); RBC 3.64 m/uL (3.80-5.40); RDW 13.1 % (11.5-15.5); WBC 9.5 k/uL (3.8-10.6)
[2018-10-29] MEDS: IBUPROFEN 800 MG TAB PO SCH ×4 (08:54→23:43)
[2018-10-29] MEDS: AZITHROMYCIN 500 MG in SODIUM CHLORIDE 0.9% 250 ML IVPB SCH (08:54)
[2018-10-29] MEDS: NICOTINE 14MG/24HR PATCH TRANSDERM SCH (08:55)
[2018-10-29] MEDS: FLUoxetine HCL 20 MG CAP PO SCH (08:55)
[2018-10-29] MEDS: FAMOTIDINE 20 MG TAB PO SCH ×2 (08:55→19:36)
[2018-10-29] MEDS: GABAPENTIN 300 MG CAP PO SCH ×4 (08:55→23:43)
[2018-10-29 08:56] LABS: ALT 19 U/L (9-52); AST 19 U/L (14-36); African American GFR (CKD) >90 (>60 ml/min/1.73 sqM); Albumin 3.5 g/dL (3.5-5.0); Alkaline Phosphatase 67 U/L (38-126); Anion Gap 7 mmol/L; Blood Urea Nitrogen 6 mg/dL (7-17); Calcium 8.6 mg/dL (8.4-10.2); Carbon Dioxide 21 mmol/L (22-30); Chloride 113 mmol/L (98-107); Glucose 152 mg/dL (74-99); Potassium 3.9 mmol/L (3.5-5.1); Sodium 141 mmol/L (137-145); Total Bilirubin 0.3 mg/dL (0.2-1.3); Total Protein 6.6 g/dL (6.3-8.2)
[2018-10-29] MEDS ORDERED: HYDROCHLOROTHIAZIDE 12.5 MG CAP PO PRN (09:00)
[2018-10-29] MEDS ORDERED: NON-FORMULARY DRUG (Dextroamphetamine/Amphetamine [Adderall] 20 MG) PO SCH (09:00)
[2018-10-29] MEDS: ONDANSETRON 4 MG/2 ML VIAL IVP PRN (10:19)
[2018-10-29 11:35] LABS: Glucose,Whole Blood 160 mg/dL (75-99)
[2018-10-29 16:47] LABS: Glucose,Whole Blood 125 mg/dL (75-99)
--- NOTE | 2018-10-29 18:41 | HP ---
HISTORY AND PHYSICAL CHIEF COMPLAINT: Abdominal pain, possible right lower lobe pneumonitis and hypotension. HISTORY OF PRESENT ILLNESS: This is the first known admission for this 38-year-old white female who has been complaining of right upper quadrant and right costal margin pain for about 3 days. She has had chills. She has had progressive shortness of breath. When she came to the emergency room she also had hypotension, and it was found that she may have a right lower lobe pneumonitis. She has had a history of progressive unexplained weight loss over the last several months. She has had no significant loss of appetite, abdominal pain, vomiting, diarrhea, melena, hematochezia, etc. Workup so far has been negative. She has had no recent dysuria, frequency, urgency, etc. She is not diabetic. Past medical history, family history, and personal and social histories reveal that she is ALLERGIC to SULFA. CURRENT MEDICATIONS: Current medications include: 1. Symbicort 160/4.5 two puffs twice a day. 2. Zanaflex 2 mg twice a day. 3. Prozac 20 mg once a day. 4. Trazodone 100 mg at bedtime p.r.n. 5. Gabapentin 600 mg 4 times a day. 6. Ibuprofen 800 mg q.i.d. p.r.n. 7. Fluticasone spray once a day. 8. Xanax 1 mg t.i.d. p.r.n. 9. Zantac 150 twice a day. 10.Ropinirole 0.5 at bedtime. 11.Adderall 20 mg b.i.d. 12.Ventolin HFA 2 puffs q.i.d. p.r.n. 13.Hydrochlorothiazide 12.5 mg once a day. 14.Zyrtec 10 mg once a day. 15.Vitamin D3. Past medical history reveals that she has had some trouble with depression with a suicide attempt in 1998. She has a history of asthma and anemia. She has had a fracture of the left collar bone, which had to be surgically stabilized. She had seizures as a youngster. She has been told in the past that she has rheumatoid arthritis. She has had 5 pregnancies and 2 children. Surgically she has had endometrial ablation in 2015, cholecystectomy, tonsillectomy and adenoidectomy. PERSONAL AND SOCIAL HISTORIES: She smokes every day and drinks occasionally. Does not use other drugs. PHYSICAL EXAMINATION: Blood pressure is 86/51 with a pulse of 100, respirations 16. She is afebrile. In general she appeared to be well developed, well nourished, in no acute distress. Skin color is normal. Skin is warm and dry. Lymph nodes are not enlarged. Head, ears, eyes, nose, mouth and throat were normal. Neck veins not distended. Thyroid is not enlarged. Chest is clear. Cardiac exam is normal sinus rhythm with no murmurs or extra sounds. The abdomen is flat, soft, and she is a little bit tender in the right upper quadrant over the right costal margin; no definite masses. The liver cannot be palpated. Abdomen is otherwise normal. Bowel sounds are present. Extremities are normal. Neurologically she is intact. She is admitted to the hospital with diagnoses: 1. Right upper quadrant pain, etiology unknown. 2. Possible right lower lobe pneumonitis. 3. Hypotension. 4. Probable dehydration. 5. Chronic obstructive pulmonary disease and reactive airway disease. 6. History of depression. PLAN: 1. Bed rest. 2. IV fluids. 3. IV antibiotics for right lower lobe pneumonitis. 4. Monitor right upper quadrant pain. MMODL / IJN: [id number] /
[2018-10-29] MEDS: ALPRAZolam 1 MG TAB PO PRN (19:36)
[2018-10-29 19:55] LABS: Glucose,Whole Blood 118 mg/dL (75-99)
--- NOTE | 2018-10-29 20:20 | PN ---
PROGRESS NOTE CHIEF COMPLAINT: Hypotension, right upper quadrant pain and right lower lobe pneumonitis. HISTORY OF PRESENT ILLNESS: This lady is still complaining of quite a bit of the pain in the right costal margin area and right upper quadrant. She has not had a fever, chills, shortness of breath, coughed up blood, etc. PHYSICAL EXAMINATION: The abdomen is still a bit tender in the right upper quadrant with no masses or visceromegaly. Chest is clear. She is splitting somewhat because of the right costal margin. IMPRESSION: 1. Right lower lobe pneumonitis. 2. Right upper quadrant pain. 3. Shortness of breath. 4. Hypotension. PLAN: Continue with IV fluids and antibiotics and monitor blood pressure and pulse. MMODL / IJN: [id number] /
[2018-10-30] MEDS: SODIUM CHLORIDE 0.9% 1,000 ML IV SCH ×4 (03:30→19:34)
[2018-10-30] MEDS: methylPREDNISolone SOD SUCCI 125 MG/2 ML VIAL IV SCH (05:55)
[2018-10-30 07:11] LABS: Glucose,Whole Blood 286 mg/dL (75-99)
[2018-10-30] MEDS: GABAPENTIN 300 MG CAP PO SCH ×4 (07:38→23:40)
[2018-10-30] MEDS: IBUPROFEN 800 MG TAB PO SCH ×4 (07:38→23:40)
[2018-10-30] MEDS: FLUoxetine HCL 20 MG CAP PO SCH (07:39)
[2018-10-30] MEDS: NICOTINE 14MG/24HR PATCH TRANSDERM SCH (07:39)
[2018-10-30] MEDS: FAMOTIDINE 20 MG TAB PO SCH ×2 (07:39→20:46)
[2018-10-30] MEDS: INSULIN ASPART (NovoLOG) 100 UNIT/ML VIAL SQ SCH (07:40)
[2018-10-30] MEDS: AZITHROMYCIN 500 MG in SODIUM CHLORIDE 0.9% 250 ML IVPB SCH (07:41)
[2018-10-30] MEDS: SYMBICORT 160-4.5 MCG INHALER INHALATION SCH (08:49)
[2018-10-30] MEDS: ALBUTEROL NEBULIZED 2.5 MG/3 ML INHALATION PRN (08:49)
--- NOTE | 2018-10-30 17:36 | PN ---
PROGRESS NOTE CHIEF COMPLAINT: Right-sided chest and right upper quadrant abdominal pain. HISTORY OF PRESENT ILLNESS: This lady still complaining of discomfort in the right upper quadrant, right costal margin area and right chest. She has been belching, but she has had no abdominal pain, vomiting, etc. Yesterday she developed some dysesthesias in the fingertips after receiving a dose of steroids. Her blood sugar also elevated and steroids have been stopped. PHYSICAL EXAM: Abdomen is soft and nontender. Chest demonstrates decreased breath sounds at both bases. Cardiac exam is normal. IMPRESSION: 1. Right lower lobe pneumonitis. 2. Right upper quadrant pain, etiology unknown. PLAN: Continue treating for pneumonia and looking for etiology of right upper quadrant pain. MMODL / IJN: [id number] /
--- NOTE | 2018-10-30 18:41 | XR ---
EXAMINATION TYPE: XR chest 2V DATE OF EXAM: 10/30/2018 COMPARISON: 12/15/2014 HISTORY: Chest pain TECHNIQUE: Frontal and lateral views of the chest are obtained. FINDINGS: Heart and mediastinum are normal. There is slight thoracic dextroscoliosis. Lungs are alessandra r of consolidation. There is a plate fixing the left clavicle. There are chest leads. There is no ple ural effusion. There is some increased density lateral left lung base. IMPRESSION: Minimal infiltrate or atelectasis lateral left lung base is a change compared to old exa m. Normal heart.
--- NOTE | 2018-10-30 18:55 | CT ---
EXAMINATION TYPE: CT chest wo con DATE OF EXAM: 10/30/2018 COMPARISON: None HISTORY: RT side chest pain, under ribs, weight loss CT DLP: 241.2 mGycm. Automated Exposure Control for Dose Reduction was Utilized. TECHNIQUE: CT scan of the thorax is performed without IV contrast. FINDINGS: There is patchy groundglass interstitial infiltrate in both lungs. Heart size is normal. There is no pericardial effusion. There are no hilar masses. There are a few paratracheal lymph nodes that measur e up to 13 x 8 mm. Thoracic aorta has normal size. There is no evidence of aneurysm. There are multip le axillary lymph nodes bilaterally that measure up to 10 mm. There is some spurring in the thoracic spine. I see no bony destructive process. The ribs appear inta ct. Upper abdominal soft tissues are unremarkable. There is clips from cholecystectomy. There is sugg estion of mild mesenteric edema and minimal peritoneal fluid on the limited evaluation of the upper a bdomen. There is mild thoracic dextroscoliosis. There is no compression fracture. IMPRESSION: Diffuse bilateral groundglass pulmonary interstitial infiltrates. Clinical significance i s not clear. This could relate to inflammatory disease or developing interstitial fibrosis. Nonspecif ic mediastinal and axillary lymph nodes. Sarcoidosis is possible. Interstitial infiltrates at the concha g bases appear improved compared to CT abdomen 10/28/2018 that suggests inflammatory process. There is subcutaneous edema over the lumbar spine that is new compared to old exam. There is suggesti on of new developing mild ascites or mesenteric edema compared to recent CT scan of 10/28/2018.
[2018-10-30 19:16] LABS: Basophils % (A) 0 %; Eosinophils # (A) 0.1 k/uL (0-0.7); Eosinophils % (A) 0 %; HCT 29.2 % (34.0-46.0); HGB 9.5 gm/dL (11.4-16.0); Lymphocytes # (A) 2.1 k/uL (1.0-4.8); Lymphocytes % (A) 10 %; MCHC 32.5 g/dL (31.0-37.0); MCV 92.5 fL (80.0-100.0); Mean Platelet Volume 7.8; Monocytes # (A) 0.8 k/uL (0-1.0); Monocytes % (A) 4 %; Neutrophils % (A) 85 %; Platelet Count 290 k/uL (150-450); RBC 3.16 m/uL (3.80-5.40); RDW 14.4 % (11.5-15.5); WBC 20.1 k/uL (3.8-10.6)
[2018-10-30 19:20] LABS: ALT 18 U/L (9-52); AST 22 U/L (14-36); African American GFR (CKD) >90 (>60 ml/min/1.73 sqM); Alkaline Phosphatase 51 U/L (38-126); Anion Gap 6 mmol/L; Blood Urea Nitrogen 9 mg/dL (7-17); Calcium 8.5 mg/dL (8.4-10.2); Carbon Dioxide 20 mmol/L (22-30); Chloride 115 mmol/L (98-107); Glucose 79 mg/dL (74-99); Potassium 3.9 mmol/L (3.5-5.1); Sodium 141 mmol/L (137-145); Total Bilirubin <0.1 mg/dL (0.2-1.3); Total Protein 5.7 g/dL (6.3-8.2)
[2018-10-30] MEDS: SIMETHICONE 80 MG CHEWABLE PO PRN (19:45)
[2018-10-30] MEDS: traZODone HCL 100 MG TAB PO SCH (20:46)
[2018-10-30] MEDS: ALPRAZolam 1 MG TAB PO PRN (20:51)
[2018-10-31 01:54] LABS: Hemoglobin A1C 5.5 % (4.0-6.0)
[2018-10-31] MEDS: SODIUM CHLORIDE 0.9% 1,000 ML IV SCH ×3 (05:13→16:50)
[2018-10-31] MEDS ORDERED: AZITHROMYCIN 500 MG TAB PO SCH (09:00)
[2018-10-31] MEDS: GABAPENTIN 300 MG CAP PO SCH ×4 (09:58→21:24)
[2018-10-31] MEDS: FLUoxetine HCL 20 MG CAP PO SCH (09:58)
[2018-10-31] MEDS: FAMOTIDINE 20 MG TAB PO SCH (09:58)
[2018-10-31] MEDS: IBUPROFEN 800 MG TAB PO SCH ×4 (09:59→21:25)
[2018-10-31] MEDS: NICOTINE 14MG/24HR PATCH TRANSDERM SCH (10:00)
[2018-10-31] MEDS: LEVOFLOXACIN 750MG-D5W PMX 750 MG in DEXTROSE/WATER 1 150ML.BAG IVPB SCH (11:35)
[2018-10-31] MEDS: SYMBICORT 160-4.5 MCG INHALER INHALATION SCH (11:47)
[2018-10-31] MEDS: ONDANSETRON 4 MG/2 ML VIAL IVP PRN (12:56)
--- NOTE | 2018-10-31 15:16 | P.CNPUL ---
History of Present Illness Consult date: 10/31/18 Reason for consult: chest pain Chief complaint: Chest pain and cough History of present illness: This is a 38-year-old female who presented emergency department complaining of right chest pain and cough. She states it started about 5 days ago. She does not have any fevers. She does complain of night sweats. She states that her best friend of cancer last week and she was at the hospital and around a lot of other people. She does smoke one to one and half packs per day. She does have a history of asthma and COPD. She uses Symbicort and Ventolin at home. She does not have a home nebulizer or oxygen. She does complain of seasonal ALLERGIES. She states she really has a lot of pain when she coughs but is not producing any phlegm. She states the only exposure she can think of is that she was in her garage with a citronella candle and the garage door closed and the next day she noticed black soot around her nose. Per the emergency department notes the patient was having right upper quadrant abdominal pain as well. The pain was causing her to have shortness of breath. She does have int ermittent diarrhea. The patient's chest x-ray shows left basilar minimal infiltrate or atelectasis. She also had a CT of the chest which showed patchy groundglass interstitial infiltrates in both lungs. A few paratracheal lymph nodes. Multiple axillary lymph nodes. Review of Systems All systems: negative Past Medical History Past Medical History: Asthma, COPD, Fibromyalgia, GERD/Reflux, Osteoarthritis (OA), Respiratory Disorder, Rheumatoid Arthritis (RA) Additional Past Medical History / Comment(s): PANCREATITIS, RESTLESS LEG History of Any Multi-Drug Resistant Organisms: None Reported Past Surgical History: Appendectomy, Section, Cholecystectomy, Tonsillectomy, Tubal Ligation, Uterine Ablation Additional Past Surgical History / Comment(s): PANNICULECTOMY; Uterine ablation with fissure clips. Left collarbone surgery - shanna placement, bone graft, jonh carpal tunnel, benign rt breast bx. Left C6 Transforaminal Epidural steroid injection Jan 2017 at [facility]. C5/6 nerve Root block Jan 2017 at [facility], PAIN CLINIC PROCEDURES Past Anesthesia/Blood Transfusion Reactions: No Reported Reaction Past Psychological History: ADD/ADHD, Anxiety, Bipolar, Depression Smoking Status: Current every day smoker Past Alcohol Use History: Rare Additional Past Alcohol Use History / Comment(s): smokes 1ppd from age 18 Past Drug Use History: Marijuana - Past Family History Mother Family Medical History: Deep Vein Thrombosis (DVT) Additional Family Medical History / Comment(s): leiden factor 5 Medications and Allergies Home Medications Medication Instructions Recorded Confirmed Type Dextroamphetamine/Amphetamine 20 mg PO BID 02/07/14 10/28/18 History [Adderall] ALPRAZolam [Xanax] 1 mg PO TID PRN 08/11/18 10/28/18 History Albuterol Inhaler [Ventolin Hfa 1 - 2 puff INHALATION RT-Q6H PRN 08/11/18 10/28/18 History Inhaler] Budesonide-Formot 160-4.5 Mcg 2 puff INHALATION 1400 08/11/18 10/28/18 History [Symbicort 160-4.5 Mcg Inhaler] Ergocalciferol (Vitamin D2) 50,000 unit PO Q30D 08/11/18 10/28/18 History [Vitamin D2] Fluticasone Nasal [place] [Flonase 1 spray EA NOSTRIL DAILY PRN 08/11/18 10/28/18 History Nasal [place]] Gabapentin [Neurontin] 600 mg PO QID 08/11/18 10/28/18 History Hydrochlorothiazide 12.5 mg PO DIRECTED PRN 08/11/18 10/28/18 History Ibuprofen [Motrin] 800 mg PO QID 08/11/18 10/28/18 History Ranitidine HCl [Zantac] 150 mg PO BID 08/11/18 10/28/18 History rOPINIRole HCL 0.5 mg PO HS 08/11/18 10/28/18 History tiZANidine HCL [Zanaflex] 2 mg PO DAILY 08/11/18 10/28/18 History traZODone HCL 100 mg PO HS 08/11/18 10/28/18 History FLUoxetine HCL [PROzac] 20 mg PO DAILY 09/11/18 10/28/18 History Allergies Allergy/AdvReac Type Severity Reaction Status Date / Time sulfamethoxazole Allergy Rash/Hives, Verified 10/28/18 18:13 [From Bactrim] SEIZURE trimethoprim [From Bactrim] Allergy Rash/Hives Verified 10/28/18 18:13 tdap Allergy Anaphylaxis Uncoded 10/28/18 18:04 Physical Exam Osteopathic Statement: *. No significant issues noted on an osteopathic structural exam other than those noted in the History and Physical/Consult. Vitals: Vital Signs Temp Pulse Resp BP Pulse Ox 10/31/18 14:05 97.9 F 69 16 92/56 100 10/31/18 06:50 98.0 F 76 14 98/59 98 10/31/18 01:40 98.4 F 61 17 90/51 98 10/30/18 18:52 98.7 F 62 17 96/45 99 Intake and Output 10/30/18 10/31/18 10/31/18 22:59 06:59 14:59 Other: # Voids 1 1 Gen.: Patient is alert and oriented 3, no acute distress Cardiovascular: Regular rate and rhythm,/S2 Lungs: Diminished breath sounds bilaterally with scattered expiratory wheezing Abdomen: Soft mildly diffusely tender in the right upper quadrant, no rebounding or guarding, positive bowel sounds Extremities: No edema Results - Laboratory Findings CBC and BMP: 10/30/18 18:56 10/30/18 18:56 PT/INR, D-dimer D-Dimer 1.06 mg/L FEU (<0.60) H 10/30/18 18:55 Abnormal lab findings: Abnormal Labs 10/28/18 10/28/18 10/28/18 18:15 18:15 Unknown WBC RBC 3.47 L Hgb 10.4 L Hct 31.6 L Neutrophils # Lymphocytes # D-Dimer Chloride 108 H Carbon Dioxide BUN Creatinine Glucose 102 H POC Glucose (mg/dL) Total Bilirubin Total Protein Albumin Urine Appearance Cloudy H Ur Specific [place] 1.039 H Urine Protein Trace H Urine Mucus Rare H Urine Yeast (Budding) Occasional H 10/29/18 10/29/18 10/29/18 07:10 07:53 07:53 WBC RBC 3.64 L Hgb 10.7 L Hct Neutrophils # 8.8 H Lymphocytes # 0.6 L D-Dimer Chloride 113 H Carbon Dioxide 21 L BUN 6 L Creatinine 0.49 L Glucose 152 H POC Glucose (mg/dL) 154 H Total Bilirubin Total Protein Albumin Urine Appearance Ur Specific [place] Urine Protein Urine Mucus Urine Yeast (Budding) 10/29/18 10/29/18 10/29/18 11:30 16:40 19:54 WBC RBC Hgb Hct Neutrophils # Lymphocytes # D-Dimer Chloride Carbon Dioxide BUN Creatinine Glucose POC Glucose (mg/dL) 160 H 125 H 118 H Total Bilirubin Total Protein Albumin Urine Appearance Ur Specific [place] Urine Protein Urine Mucus Urine Yeast (Budding) 10/30/18 10/30/18 10/30/18 07:09 18:55 18:56 WBC 20.1 H RBC 3.16 L Hgb 9.5 L Hct 29.2 L Neutrophils # 17.0 H Lymphocytes # D-Dimer 1.06 H Chloride Carbon Dioxide BUN Creatinine Glucose POC Glucose (mg/dL) 286 H Total Bilirubin Total Protein Albumin Urine Appearance Ur Specific [place] Urine Protein Urine Mucus Urine Yeast (Budding) 10/30/18 18:56 WBC RBC Hgb Hct Neutrophils # Lymphocytes # D-Dimer Chloride 115 H Carbon Dioxide 20 L BUN Creatinine Glucose POC Glucose (mg/dL) Total Bilirubin <0.1 L Total Protein 5.7 L Albumin 3.0 L Urine Appearance Ur Specific [place] Urine Protein Urine Mucus Urine Yeast (Budding) - Diagnostic Findings Chest x-ray: report reviewed, image reviewed CT scan - chest: report reviewed, image reviewed Assessment and Plan Assessment: Bilateral interstitial pulmonary infiltrates - inflammatory/infectious likely Mediastinal and axillary lymphadeonpathy Ascites and mesenteric edema of unclear etiology RUQ abdominal pain of unclear etiology Acute exacerbation of asthma (unknown type) Acute exacerbation of COPD Leukocytosis Peripheral eosinophilia GERD History of RA Fibromyalgia Active tobacco abuse Anxiety/depression ESR, RF, antiCCP, HP panel, allergy panel, IgE, procalcitonin O2 to maintain saturation greater than or equal to 90% Sputum, blood cultures ABX: Levaquin (DC Azithromycin) Smoking cessation is highly recommended Check SHANIQUE level, AYAN, legionella, mycoplasma Consult surgery for lymph node biopsy Pulmicort and Duoneb Singulair Smoking cessation, nicotine TD GI and DVT prophylaxis Thank you for this consultation. We will continue to follow along.
--- NOTE | 2018-10-31 15:23 | P.CONS ---
History of Present Illness - Reason for Consult Consult date: 10/31/18 abdominal pain anemia Requesting physician: Demar Sam - Chief Complaint abdominal pain - History of Present Illness 38-year-old female with a history of chronic back pain with chronic NSAID usage Motrin 800 mg 4 times a day without GI prophylaxis, asthma, COPD, nicotine cigarette dependency, RA, pancreatitis, cholecystectomy, uterine ablation, anxiety, bipolar depression admitted with acute right upper quadrant abdominal pain, dry cough, with incidental findings of anemia. Consult requested for abdominal pain and anemia. Admission hemoglobin 10.4. MCV 90. Presently hemoglobin is 9.5 MCV 92. Platelet 290. D-dimer 1.06. BUN 11. Creatinine 0.5. LFTs amylase lipase within normal limits. HCG not detected. FOBT negative. In regards to anemia patient is known for quite some time that she's been anemic at least a few years. Denies overt bleeding such as hematemesis hematochezia melena. No heavy menstruation. Denies epistaxis or hematuria. No history of EGD colonoscopy. No recent blood transfusions or iron therapy. Previous hemoglobin September [address] chest 10/30/2017 subcutaneous edema over the lumbar spine new compared to old exam suggestion of new developing mild ascites or mesenteric edema minimal peritoneal fluid compared to recent CT 3 days ago. Diffuse bilateral groundglass pulmonary interstitial infiltrates. Could relate to inflammatory disease or developing interstitial fibrosis. CT abdomen 10/28/2017 reported bibasilar groundglass opacity pneumonitis. Mild hepatomegaly no other findings. In regards to the abdominal pain it is described as sharp and worsens with inspiration and cough started earlier this week centered mostly in the anterior right upper quadrant. White count on admission 9.7 increased at 20.1 today. Blood cultures preliminarily no growth. Lactic acid 0.7. She has been afebril e. Receiving Zithromax and Levaquin. Review of Systems Constitutional: Denies fever, chills, sweats, weight gain, or loss. HEENT: Negative for migraines, blurred vision or loss, earaches, drainage, tinnitus, oral mucosal lesions, dysphagia, or odynophagia. CARDIAC: Negative for chest pain, arrhythmias, or palpitation. RESPIRATORY: Negative for shortness of breath, hemoptysis, cough, or sputum production. GI: See HPI for pertinent findings. : Negative for hematuria, urgency, frequency, polyuria, or dysuria. GYNc: Denies possibility of . Negative vaginal discharge. MUSCULOSKELETAL: Negative for muscle aches, swelling, arthritis, and arthralgias. NEUROLOGIC: Negative for stroke or TIA. ENDOCRINE: Negative for thyroid problems. SKIN: Negative for rash or itching. PSYCHIATRIC: Negative history for depression and anxiety Past Medical History Past Medical History: Asthma, COPD, Fibromyalgia, GERD/Reflux, Osteoarthritis (OA), Respiratory Disorder, Rheumatoid Arthritis (RA) Additional Past Medical History / Comment(s): PANCREATITIS, RESTLESS LEG History of Any Multi-Drug Resistant Organisms: None Reported Past Surgical History: Appendectomy, Section, Cholecystectomy, Tonsillectomy, Tubal Ligation, Uterine Ablation Additional Past Surgical History / Comment(s): PANNICULECTOMY; Uterine ablation with fissure clips. Left collarbone surgery - shanna placement, bone graft, jonh carpal tunnel, benign rt breast bx. Left C6 Transforaminal Epidural steroid injection Jan 2017 at [facility]. C5/6 nerve Root block Jan 2017 at [facility], PAIN CLINIC PROCEDURES Past Anesthesia/Blood Transfusion Reactions: No Reported Reaction Past Psychological History: ADD/ADHD, Anxiety, Bipolar, Depression Smoking Status: Current every day smoker Past Alcohol Use History: Rare Additional Past Alcohol Use History / Comment(s): smokes 1ppd from age 18 Past Drug Use History: Marijuana - Past Family History Mother Family Medical History: Deep Vein Thrombosis (DVT) Additional Family Medical History / Comment(s): leiden factor 5 Medications and Allergies Home Medications Medication Instructions Recorded Confirmed Type Dextroamphetamine/Amphetamine 20 mg PO BID 02/07/14 10/28/18 History [Adderall] ALPRAZolam [Xanax] 1 mg PO TID PRN 08/11/18 10/28/18 History Albuterol Inhaler [Ventolin Hfa 1 - 2 puff INHALATION RT-Q6H PRN 08/11/18 10/28/18 History Inhaler] Budesonide-Formot 160-4.5 Mcg 2 puff INHALATION 1400 08/11/18 10/28/18 History [Symbicort 160-4.5 Mcg Inhaler] Ergocalciferol (Vitamin D2) 50,000 unit PO Q30D 08/11/18 10/28/18 History [Vitamin D2] Fluticasone Nasal [place] [Flonase 1 spray EA NOSTRIL DAILY PRN 08/11/18 10/28/18 History Nasal [place]] Gabapentin [Neurontin] 600 mg PO QID 08/11/18 10/28/18 History Hydrochlorothiazide 12.5 mg PO DIRECTED PRN 08/11/18 10/28/18 History Ibuprofen [Motrin] 800 mg PO QID 08/11/18 10/28/18 History Ranitidine HCl [Zantac] 150 mg PO BID 08/11/18 10/28/18 History rOPINIRole HCL 0.5 mg PO HS 08/11/18 10/28/18 History tiZANidine HCL [Zanaflex] 2 mg PO DAILY 08/11/18 10/28/18 History traZODone HCL 100 mg PO HS 08/11/18 10/28/18 History FLUoxetine HCL [PROzac] 20 mg PO DAILY 09/11/18 10/28/18 History Allergies Allergy/AdvReac Type Severity Reaction Status Date / Time sulfamethoxazole Allergy Rash/Hives, Verified 10/28/18 18:13 [From Bactrim] SEIZURE trimethoprim [From Bactrim] Allergy Rash/Hives Verified 10/28/18 18:13 tdap Allergy Anaphylaxis Uncoded 10/28/18 18:04 Physical Exam Vitals: Vital Signs Temp Pulse Resp BP Pulse Ox 10/31/18 14:05 97.9 F 69 16 92/56 100 10/31/18 06:50 98.0 F 76 14 98/59 98 10/31/18 01:40 98.4 F 61 17 90/51 98 10/30/18 18:52 98.7 F 62 17 96/45 99 Intake and Output 10/31/18 10/31/18 10/31/18 06:59 14:59 22:59 Other: # Voids 1 1 General appearance: The patient is alert, oriented, in no acute distress. HET: Head is normocephalic and atraumatic. Pupils are equal and reactive. Oropharynx is clear without lesions. Neck: Supple without lymphadenopathy. Trachea midline. Heart: S1 S2. Regular rate and rhythm. Lungs: No crackles or wheezes are heard. Abdomen: Soft, nontender, nondistended with bowel sounds. No peritoneal signs. No palpable organomegaly or masses. Extremities: Normal skin color and turgor. No cyanosis, rash, ulceration, clubbing, or edema. Radial and pedal pulses are 2/4 bilaterally. Neurological: No focal deficits. Strength and sensation are grossly intact. Results CBC & Chem 7: 10/30/18 18:56 10/30/18 18:56 Labs: Abnormal Lab Results - Last 24 Hours (Table) 10/30/18 10/30/18 10/30/18 Range/Units 18:55 18:56 18:56 WBC 20.1 H (3.8-10.6) k/uL RBC 3.16 L (3.80-5.40) m/uL Hgb 9.5 L (11.4-16.0) gm/dL Hct 29.2 L (34.0-46.0) % Neutrophils # 17.0 H (1.3-7.7) k/uL D-Dimer 1.06 H (<0.60) mg/L FEU Chloride 115 H (98-107) mmol/L Carbon Dioxide 20 L (22-30) mmol/L Total Bilirubin <0.1 L (0.2-1.3) mg/dL Total Protein 5.7 L (6.3-8.2) g/dL Albumin 3.0 L (3.5-5.0) g/dL Microbiology - Last 24 Hours (Table) 10/28/18 18:30 Blood Culture - Preliminary Blood No Growth after [address] scan - abdomen: report reviewed (Dr. Barclay) CT scan - chest: report reviewed (Dr. Barclay) US - abdomen: pending Assessment and Plan Assessment: Impression: 1. Acute right upper quadrant abdominal pain with history of chronic NSAID usa ge underlying peptic ulcer disease cannot be excluded. 2. Leukocytosis possible pneumonitis per CT. 3. Normocytic anemia without overt bleeding negative FOBT. 4. History of cholecystectomy. Normal liver function tests, amylase lipase. Recommendations: 1. Pulmonary consult continue with antibiotic therapy. 2. Ultrasound right upper quadrant evaluate previous CT abdominal findings and persistent pain. 3. Inpatient EGD evaluation to rule out peptic ulcer disease contingent on clinical course if patient hemoglobin remains stable and her abdominal pain improves may be pursued as an outpatient. 4. Outpatient colonoscopy advised for further evaluation of normocytic anemia. Check iron indices. 5. Protonix 40 mg twice daily. The field training agent has discussed the risks, benefits and alternative therapies for the above-mentioned procedure and for both sedation/analgesia as well as necessary blood product administration, if indicated, as they pertain to this patient. The patient has indicated understanding and acceptance of the risks and procedures discussed. Thank you for this kind referral and the opportunity to participate in the care of your patient. This consultation was discussed with Dr. Bain. The impression and plan of care have been directed as dictated.
[2018-10-31] MEDS ORDERED: methylPREDNISolone SOD SUCCI 40 MG/ML 1 ML VIAL IV SCH (16:00)
--- NOTE | 2018-10-31 16:27 | US ---
EXAMINATION TYPE: US abdomen limited DATE OF EXAM: 10/31/2018 COMPARISON: Prior CT 10/28/2018 CLINICAL HISTORY: RUQ abdominal pain. EXAM MEASUREMENTS: Liver Length: Enlarged Gallbladder Wall: Surgically absent CBD: 0.5 cm Right Kidney: 12.5 x 4.7 x 5.5 cm Severe pain RUQ Pancreas: partially obscured by bowel gas, portions visualized wnl Liver: wnl Gallbladder: Surgically absent Evidence for sonographic Gil's sign: no CBD: wnl, echogenic focus anterior seen on multiple views likely related to cholecystectomy Right Kidney: dilated extrarenal pelvis IMPRESSION: Postop change.
[2018-10-31] MEDS: HEPARIN SODIUM,PORCINE 5,000 UNIT/ML 1 ML VIAL SQ SCH ×2 (16:49→23:25)
[2018-10-31] MEDS: PANTOPRAZOLE 40 MG/10 ML VIAL IVP SCH ×2 (16:49→23:25)
[2018-10-31] MEDS: SIMETHICONE 80 MG CHEWABLE PO PRN (17:54)
[2018-10-31 18:07] LABS: Iron Saturation 8.86 (12.00-45.00)
[2018-10-31 18:08] LABS: Rheumatoid Factor 8 IU/mL (0-15)
--- NOTE | 2018-10-31 18:38 | PN ---
PROGRESS NOTE Note on Magi Timmons. CHIEF COMPLAINT: Shortness of breath, possible right lower lobe pneumonitis, right upper quadrant pain with anemia and weight loss. HISTORY OF PRESENT ILLNESS: This lady continues to have difficulty. She feels that the pain in the right upper quadrant is getting worse. Her x-ray now shows a ground-glass appearance in both lower lobes. She is also significantly anemic. She has been seen by Gastroenterology, and they are planning on scoping her tomorrow. Her blood pressure is still quite low also. PHYSICAL EXAMINATION: Color is good. Chest is clear. Cardiac exam is normal. The abdomen is flat and hook tender in the right upper quadrant. Bowel sounds are present. Extremities are normal. Neurologically she is intact. IMPRESSION: 1. Possible right lower lobe infiltrate. 2. Right upper quadrant pain, etiology unknown. 3. Anemia. 4. Abnormal weight loss. PLAN: 1. Await possible upper GI endoscopy. 2. Continue to monitor her chest findings. 3. Continue search for etiology of her anemia. MMODL / IJN: [id number] /
[2018-10-31 19:09] LABS: Cyclic Citrull Pep IgG Unit 0.7 U/mL; Cyclic Citrullinated Pep IgG NEGATIVE (NEGATIVE)
[2018-10-31] MEDS: IPRATROPIUM-ALBUTEROL 3 ML NEB INHALATION SCH (19:31)
[2018-10-31] MEDS: BUDESONIDE 0.5 MG/2 ML NEBU INHALATION SCH (19:31)
[2018-10-31] MEDS: MORPHINE SULFATE 2 MG/ML SYRINGE IV PRN (19:48)
[2018-10-31 21:16] LABS: Procalcitonin 0.03 ng/mL (0.02-0.09)
[2018-10-31] MEDS: traZODone HCL 100 MG TAB PO SCH (21:25)
[2018-10-31] MEDS: MONTELUKAST 10 MG TAB PO SCH (21:25)
--- NOTE | 2018-10-31 23:26 | P.GSCN ---
History of Present Illness Consult date: 10/31/18 Reason for Consult: Possible lymph node biopsy History of present illness: The patient presented to the ED with abdominal pain for several days, alternating diarrhea and constipation, malaise and was found to be anemic. She was admitted for further workup and treatment. A CT scan of the chest was performed and there was noted to be multiple prominent lymph nodes. The patient denies weight loss, family history of lymphoma. She did feel some swollen glands in her neck, but denied any discomfort in her axilla. Review of Systems All systems: negative Past Medical History Past Medical History: Asthma, COPD, Fibromyalgia, GERD/Reflux, Osteoarthritis (OA), Respiratory Disorder, Rheumatoid Arthritis (RA) Additional Past Medical History / Comment(s): PANCREATITIS, RESTLESS LEG History of Any Multi-Drug Resistant Organisms: None Reported Past Surgical History: Appendectomy, Section, Cholecystectomy, Tonsillectomy, Tubal Ligation, Uterine Ablation Additional Past Surgical History / Comment(s): PANNICULECTOMY; Uterine ablation with fissure clips. Left collarbone surgery - shanna placement, bone graft, jonh carpal tunnel, benign rt breast bx. Left C6 Transforaminal Epidural steroid injection Jan 2017 at [facility]. C5/6 nerve Root block Jan 2017 at [facility], PAIN CLINIC PROCEDURES Past Anesthesia/Blood Transfusion Reactions: No Reported Reaction Past Psychological History: ADD/ADHD, Anxiety, Bipolar, Depression Smoking Status: Current every day smoker Past Alcohol Use History: Rare Additional Past Alcohol Use History / Comment(s): smokes 1ppd from age 18 Past Drug Use History: Marijuana - Past Family History Mother Family Medical History: Deep Vein Thrombosis (DVT) Additional Family Medical History / Comment(s): leiden factor 5 Medications and Allergies Home Medications Medication Instructions Recorded Confirmed Type Dextroamphetamine/Amphetamine 20 mg PO BID 02/07/14 10/28/18 History [Adderall] ALPRAZolam [Xanax] 1 mg PO TID PRN 08/11/18 10/28/18 History Albuterol Inhaler [Ventolin Hfa 1 - 2 puff INHALATION RT-Q6H PRN 08/11/1804/07 History Inhaler] Budesonide-Formot 160-4.5 Mcg 2 puff INHALATION 1400 08/11/18 10/28/18 History [Symbicort 160-4.5 Mcg Inhaler] Ergocalciferol (Vitamin D2) 50,000 unit PO Q30D 08/11/18 10/28/18 History [Vitamin D2] Fluticasone Nasal [place] [Flonase 1 spray EA NOSTRIL DAILY PRN 08/11/18 10/28/18 History Nasal [place]] Gabapentin [Neurontin] 600 mg PO QID 08/11/18 10/28/18 History Hydrochlorothiazide 12.5 mg PO DIRECTED PRN 08/11/18 10/28/18 History Ibuprofen [Motrin] 800 mg PO QID 08/11/18 10/28/18 History Ranitidine HCl [Zantac] 150 mg PO BID 08/11/18 10/28/18 History rOPINIRole HCL 0.5 mg PO HS 08/11/18 10/28/18 History tiZANidine HCL [Zanaflex] 2 mg PO DAILY 08/11/18 10/28/18 History traZODone HCL 100 mg PO HS 08/11/18 10/28/18 History FLUoxetine HCL [PROzac] 20 mg PO DAILY 09/11/18 10/28/18 History Allergies Allergy/AdvReac Type Severity Reaction Status Date / Time sulfamethoxazole Allergy Rash/Hives, Verified 10/28/18 18:13 [From Bactrim] SEIZURE trimethoprim [From Bactrim] Allergy Rash/Hives Verified 10/28/18 18:13 tdap Allergy Anaphylaxis Uncoded 10/28/18 18:04 Surgical - Exam Osteopathic Statement: *. No significant issues noted on an osteopathic structural exam other than those noted in the History and Physical/Consult. Vital Signs Temp Pulse Resp BP Pulse Ox 98.7 F 103 H 18 73/49 97 10/28/18 18:03 10/28/18 18:03 10/28/18 18:03 10/28/18 18:03 10/28/18 18:03 - General well developed, well nourished, no distress - Eyes normal ocular movement - ENT normal mucosa - Neck [place] lymph nodes in the anterior cervical chain, less than 1 cm trachea midline - Respiratory normal respiratory effort, clear to auscultation - Cardiovascular Rhythm: regular - Abdomen Abdomen: soft, tender (mild nonspecific) There are a few 1 cm or smaller in the axilla, slightly more prominent on the right Results - Labs 10/30/18 18:56 10/30/18 18:56 Abnormal Lab Results - Last 24 Hours (Table) 10/30/18 10/31/18 Range/Units 18:56 11:09 ESR 24 H (0-20) mm/hr Iron 24 L (50-170) ug/dL Iron Saturation 8.86 L (12.00-45.00) Microbiology - Last 24 Hours (Table) 10/28/18 18:30 Blood Culture - Preliminary Blood No Growth after 72 hours Diabetes panel 10/30/18 Range/Units 18:56 Hemoglobin A1c 5.5 (4.0-6.0) % Pituitary panel 10/30/18 Range/Units 18:56 ACTH 6.77 (0.00-45.99) pg/mL Adrenal panel 10/30/18 Range/Units 18:56 ACTH 6.77 (0.00-45.99) pg/mL - Imaging CT scan - chest: report reviewed, image reviewed Assessment and Plan (1) Lymphadenopathy Current Visit: Yes Status: Acute Code(s): R59.1 - GENERALIZED ENLARGED LYMPH NODES SNOMED Code(s): 47804637 (2) Abdominal pain Current Visit: Yes Status: Acute Code(s): R10.9 - UNSPECIFIED ABDOMINAL PAIN SNOMED Code(s): 59549734 (3) Pneumonitis Current Visit: Yes Status: Acute Code(s): J18.9 - PNEUMONIA, UNSPECIFIED ORGANISM SNOMED Code(s): 118254679 (4) Leukocytosis Current Visit: Yes Status: Acute Code(s): D72.829 - ELEVATED WHITE BLOOD CELL COUNT, UNSPECIFIED SNOMED Code(s): 513074854 (5) Anemia Current Visit: Yes Status: Acute Code(s): D64.9 - ANEMIA, UNSPECIFIED SNOMED Code(s): 524511955 Plan: I spoke with Dr Hebert via phone. The lymph nodes are border line enlarged. The yield of a biopsy in aiding the diagnosis is probably fairly low. She is including sarcoidosis in her differential diagnosis. An angiotensin converting enzyme test has been ordered. If that is positive, then a lymph node biopsy will be performed.Further recommendations to follow
--- NOTE | 2018-11-01 01:33 | P.CONS ---
History of Present Illness - Reason for Consult Consult date: 10/31/18 - Chief Complaint Abdominal pain and shortness of breath - History of Present Illness 38-year-old female who is a tobacco smoker relates that she's been under great deal of stress related to the of her very good friend who last week. They have a gathering at a local home and the weather was not ideal and there were a lot of mosquitoes. Eventually they moved into a garage setting and a citronella candle was utilized in a close space. She did notice afterwards that she did not feel well. She did have some sort on her face that she noticed the next day. Since then she's had a bit of hoarseness, shortness of breath cough middle cerebral production some abdominal pain generalized malaise and Presented to Hospital. The patient has been seen by multiple consultants as concerns pneumonia in the infectious disease consultation was requested. An imaging study there was evidence of pneumonitis as well as minimal lymphadenopathy. Review of Systems HEENT:Denies headache or acute visual change. Denies sinus or mouth discomforts. Denies neck stiffness or pain. Denies significant oral cavity pain. Denies difficulty on swallowing. Lungs: Some shortness of breath, hoarseness, minimal cough no sputum production or hemoptysis Cardiovascular: Shortness of breath, chest pain that appears to be pleuritic in nature, no orthopnea syncope or dizziness Gastrointestinal:Denies nausea, vomiting, diarrhea, constipation, hematemesis, melena, hematochezia. No no significant change of bowel habit noticed. Musculoskeletal: denies significant myalgias or arthralgias. No new joint swelling. Denies new back pain. Skin: Denies new rash or lesions. No new ulcers or wounds are related.. Neuro: Denies headache or visual change. Denies any new onset weakness or difficulty with ambulation. Denies falls or seizures. Psychiatric:Denies anxiety or depression. Endocrine: Feels fatigued no weight change Past Medical History Past Medical History: Asthma, COPD, Fibromyalgia, GERD/Reflux, Osteoarthritis (OA), Respiratory Disorder, Rheumatoid Arthritis (RA) Additional Past Medical History / Comment(s): PANCREATITIS, RESTLESS LEG History of Any Multi-Drug Resistant Organisms: None Reported Past Surgical History: Appendectomy, Section, Cholecystectomy, Tonsillectomy, Tubal Ligation, Uterine Ablation Additional Past Surgical History / Comment(s): PANNICULECTOMY; Uterine ablation with fissure clips. Left collarbone surgery - shanna placement, bone graft, jonh carpal tunnel, benign rt breast bx. Left C6 Transforaminal Epidural steroid injection Jan 2017 at [facility]. C5/6 nerve Root block Jan 2017 at [facility], PAIN CLINIC PROCEDURES Past Anesthesia/Blood Transfusion Reactions: No Reported Reaction Past Psychological History: ADD/ADHD, Anxiety, Bipolar, Depression Smoking Status: Current every day smoker Past Alcohol Use History: Rare Additional Past Alcohol Use History / Comment(s): smokes 1ppd from age 18 Past Drug Use History: Marijuana - Past Family History Mother Family Medical History: Deep Vein Thrombosis (DVT) Additional Family Medical History / Comment(s): leiden factor 5 Medications and Allergies Home Medications and Allergies Comment(s): Current Medications Albuterol/Ipratropium (Duoneb 0.5 Mg-3 Mg/3 Ml Soln) 3 ml INHALATION RT-TID [facility] Last Admin: 10/31/18 19:31 Dose: 3 ml Documented by: Alprazolam (Xanax) 1 mg PO TID PRN PRN Reason: Anxiety Last Admin: 10/30/18 20:51 Dose: 1 mg Documented by: Budesonide (Pulmicort) 0.5 mg INHALATION RT-BID [facility] Last Admin: 10/31/18 19:31 Dose: 0.5 mg Documented by: Fluoxetine HCl (Prozac) 20 mg PO DAILY [facility] Last Admin: 10/31/18 09:58 Dose: 20 mg Documented by: Fluticasone Propionate (Flonase Nasal [place]) 1 spray EA NOSTRIL DAILY PRN PRN Reason: sinus congestion Gabapentin (Neurontin) 600 mg PO QID [facility] Last Admin: 10/31/18 21:24 Dose: 600 mg Documented by: Heparin Sodium (Porcine) (Heparin) 5,000 unit SQ Q8HR [facility] Last Admin: 10/31/18 23:25 Dose: 5,000 unit Documented by: Sodium Chloride (Saline 0.9%) 1,000 mls @ 50 mls/hr IV .Q20H [facility] Last Admin: 10/31/18 16:50 Dose: 50 mls/hr Documented by: Levofloxacin 750 mg/ IV (Solution) 150 mls @ 100 mls/hr IVPB Q24H [facility] Last Admin: 10/31/18 11:35 Dose: 100 mls/hr Documented by: Ibuprofen (Motrin) 800 mg PO QID [facility] Last Admin: 10/31/18 21:25 Dose: 800 mg Documented by: Montelukast Sodium (Singulair) 10 mg PO [facility] Last Admin: 10/31/18 21:25 Dose: 10 mg Documented by: Morphine Sulfate (Morphine Sulfate (Inj)) 2 mg IV Q4HR PRN PRN Reason: Severe Pain Last Admin: 10/31/18 19:48 Dose: 2 mg Documented by: Naloxone HCl (Narcan) 0.2 mg IV Q2M PRN PRN Reason: Opioid Reversal Nicotine (Habitrol 14mg/24hr Patch) 1 patch TRANSDERM DAILY [facility] Last Admin: 10/31/18 10:00 Dose: 1 patch Documented by: Ondansetron HCl (Zofran) 4 mg IVP Q6HR PRN PRN Reason: Nausea And Vomiting Last Admin: 10/31/18 12:56 Dose: 4 mg Documented by: Pantoprazole Sodium (Protonix) 40 mg IVP BID [facility] Last Admin: 10/31/18 23:25 Dose: 40 mg Documented by: Ropinirole HCl (Requip) 0.5 mg PO [facility] Last Admin: 10/31/18 21:24 Dose: 0.5 mg Documented by: Simethicone (Mylicon Chew) 160 mg PO TID PRN PRN Reason: Indigestion Last Admin: 10/31/18 17:54 Dose: 160 mg Documented by: Trazodone HCl (Desyrel) 100 mg PO [facility] Last Admin: 10/31/18 21:25 Dose: 100 mg Documented by: Home Medications Medication Instructions Recorded Confirmed Type Dextroamphetamine/Amphetamine 20 mg PO BID 02/07/14 10/28/18 History [Adderall] ALPRAZolam [Xanax] 1 mg PO TID PRN 08/11/18 10/28/18 History Albuterol Inhaler [Ventolin Hfa 1 - 2 puff INHALATION RT-Q6H PRN 08/11/18 10/28/18 History Inhaler] Budesonide-Formot 160-4.5 Mcg 2 puff INHALATION 1400 08/11/18 10/28/18 History [Symbicort 160-4.5 Mcg Inhaler] Ergocalciferol (Vitamin D2) 50,000 unit PO Q30D 08/11/18 10/28/18 History [Vitamin D2] Fluticasone Nasal [place] [Flonase 1 spray EA NOSTRIL DAILY PRN 08/11/18 10/28/18 History Nasal [place]] Gabapentin [Neurontin] 600 mg PO QID 08/11/18 10/28/18 History Hydrochlorothiazide 12.5 mg PO DIRECTED PRN 08/11/18 10/28/18 History Ibuprofen [Motrin] 800 mg PO QID 08/11/18 10/28/18 History Ranitidine HCl [Zantac] 150 mg PO BID 08/11/18 10/28/18 History rOPINIRole HCL 0.5 mg PO HS 08/11/18 10/28/18 History tiZANidine HCL [Zanaflex] 2 mg PO DAILY 08/11/18 10/28/18 History traZODone HCL 100 mg PO HS 08/11/18 10/28/18 History FLUoxetine HCL [PROzac] 20 mg PO DAILY 09/11/18 10/28/18 History Allergies Allergy/AdvReac Type Severity Reaction Status Date / Time sulfamethoxazole Allergy Rash/Hives, Verified 10/28/18 18:13 [From Bactrim] SEIZURE trimethoprim [From Bactrim] Allergy Rash/Hives Verified 10/28/18 18:13 tdap Allergy Anaphylaxis Uncoded 10/28/18 18:04 Physical Exam Vitals: Vital Signs Temp Pulse Pulse Resp BP Pulse Ox 10/31/18 19:46 73 10/31/18 19:33 69 10/31/18 18:47 98.3 F 58 L 17 101/60 99 10/31/18 14:05 97.9 F 69 16 92/56 100 10/31/18 06:50 98.0 F 76 14 98/59 98 10/31/18 01:40 98.4 F 61 17 90/51 98 Intake and Output 10/31/18 10/31/18 11/01/18 14:59 22:59 06:59 Intake Total 150 Balance 150 Intake: Intake, IV Titration 150 Amount Sodium Chloride 0.9% 1, 150 000 ml @ 50 mls/hr IV . Q20H [facility] Rx#:[id number] Other: # Voids 1 1 38-year-old woman not in distress HEENT: Anicteric conjunctiva are pink and moist nasal mucosa grossly intact without significant lesions, there is no thrush. Neck: The neck is supple without significant lymphadenopathy or thyromegaly. Lungs: Symmetrical air entry is noted some expiratory wheezes are noted no bronchial sounds of note she has had mild hoarseness to her voice Heart: Regular rate and rhythm with an audible S1-S2, no S3 no S4. There is no significant murmur click or rub, PMI was nondisplaced. Abdomen: There are some ongoing tenderness in the right upper quadrant but no palpable mass or organomegaly Extremities: The upper extremities have excellent pulses they are symmetric, no significant petechiae or telangiectasia. No splinter hemorrhages were noted. The lower extremities are free from significant edema. The peripheral pulses were 2+ and symmetric. Neuro: Awake alert oriented to person place and time. There are no acute new gross focal sensory motor deficits. Results CBC & Chem 7: 10/30/18 18:56 10/30/18 18:56 Labs: Abnormal Lab Results - Last 24 Hours (Table) 10/30/18 10/31/18 Range/Units 18:56 11:09 ESR 24 H (0-20) mm/hr Iron 24 L (50-170) ug/dL Iron Saturation 8.86 L (12.00-45.00) Microbiology - Last 24 Hours (Table) 10/28/18 18:30 Blood Culture - Preliminary Blood No Growth after 72 hours Laboratory Results WBC 20.1 k/uL (3.8-10.6) H 10/30/18 18:56 RBC 3.16 m/uL (3.80-5.40) L 10/30/18 18:56 Hgb 9.5 gm/dL (11.4-16.0) L 10/30/18 18:56 Hct 29.2 % (34.0-46.0) L 10/30/18 18:56 MCV 92.5 fL (80.0-100.0) 10/30/18 18:56 MCH 30.0 pg (25.0-35.0) 10/30/18 18:56 MCHC 32.5 g/dL (31.0-37.0) 10/30/18 18:56 RDW 14.4 % (11.5-15.5) 10/30/18 18:56 Plt Count 290 k/uL (150-450) 10/30/18 18:56 Neutrophils % 85 % 10/30/18 18:56 Lymphocytes % 10 % 10/30/18 18:56 Monocytes % 4 % 10/30/18 18:56 Eosinophils % 0 % 10/30/18 18:56 Basophils % 0 % 10/30/18 18:56 Neutrophils # 17.0 k/uL (1.3-7.7) H 10/30/18 18:56 Lymphocytes # 2.1 k/uL (1.0-4.8) 10/30/18 18:56 Monocytes # 0.8 k/uL (0-1.0) 10/30/18 18:56 Eosinophils # 0.1 k/uL (0-0.7) 10/30/18 18:56 Basophils # 0.0 k/uL (0-0.2) 10/30/18 18:56 ESR 24 mm/hr (0-20) H 10/31/18 11:09 D-Dimer 1.06 mg/L FEU (<0.60) H 10/30/18 18:55 Sodium 141 mmol/L (137-145) 10/30/18 18:56 Potassium 3.9 mmol/L (3.5-5.1) 10/30/18 18:56 Chloride 115 mmol/L (98-107) H 10/30/18 18:56 Carbon Dioxide 20 mmol/L (22-30) L 10/30/18 18:56 Anion Gap 6 mmol/L 10/30/18 18:56 BUN 9 mg/dL (7-17) 10/30/18 18:56 Creatinine 0.55 mg/dL (0.52-1.04) 10/30/18 18:56 Est GFR (CKD-EPI)AfAm >90 (>60 ml/min/1.73 sqM) 10/30/18 18:56 Est GFR (CKD-EPI)NonAf >90 (>60 ml/min/1.73 sqM) 10/30/18 18:56 Glucose 79 mg/dL (74-99) 10/30/18 18:56 POC Glucose (mg/dL) 286 mg/dL (75-99) H 10/30/18 07:09 POC Glu [employer] Marcela Cazares 10/30/18 07:[address] Glu mg/dL 111 10/30/18 18:56 Hemoglobin A1c 5.5 % (4.0-6.0) 10/30/18 18:56 Plasma Lactic Acid Giancarlo 0.7 mmol/L (0.7-2.0) 10/31/18 11:09 Calcium 8.5 mg/dL (8.4-10.2) 10/30/18 18:56 Iron 24 ug/dL (50-170) L 10/30/18 18:56 TIBC 271 ug/dL (228-460) 10/30/18 18:56 Iron Saturation 8.86 (12.00-45.00) L 10/30/18 18:56 Ferritin 45.7 ng/mL (10.0-291.0) 10/30/18 18:56 Total Bilirubin <0.1 mg/dL (0.2-1.3) L 10/30/18 18:56 AST 22 U/L (14-36) 10/30/18 18:56 ALT 18 U/L (9-52) 10/30/18 18:56 Alkaline Phosphatase 51 U/L (38-126) 10/30/18 18:56 Troponin I <0.012 ng/mL (0.000-0.034) 10/28/18 18:15 C-Reactive Protein 7.7 mg/L (<10.0) 10/31/18 11:09 Total Protein 5.7 g/dL (6.3-8.2) L 10/30/18 18:56 Albumin 3.0 g/dL (3.5-5.0) L 10/30/18 18:56 Amylase 69 U/L (30-110) 10/28/18 18:15 Lipase 133 U/L (23-300) 10/28/18 18:15 Procalcitonin 0.03 ng/mL (0.02-0.09) 10/30/18 18:56 Cortisol 1 ug/dL 10/30/18 18:56 ACTH 6.77 pg/mL (0.00-45.99) 10/30/18 18:56 Urine Color Yellow 10/28/18 Unknown Urine Appearance Cloudy (Clear) H 10/28/18 Unknown Urine pH 7.5 (5.0-8.0) 10/28/18 Unknown Ur Specific [place] 1.039 (1.001-1.035) H 10/28/18 Unknown Urine Protein Trace (Negative) H 10/28/18 Unknown Urine Glucose (UA) Negative (Negative) 10/28/18 Unknown Urine Ketones Negative (Negative) 10/28/18 Unknown Urine Blood Negative (Negative) 10/28/18 Unknown Urine Nitrite Negative (Negative) 10/28/18 Unknown Urine Bilirubin Negative (Negative) 10/28/18 Unknown Urine Urobilinogen <2.0 mg/dL (<2.0) 10/28/18 Unknown Ur Leukocyte Esterase Negative (Negative) 10/28/18 Unknown Urine RBC 2 /hpf (0-5) 10/28/18 Unknown Urine WBC 1 /hpf (0-5) 10/28/18 Unknown Ur Squamous Epith Cells 2 /hpf (0-4) 10/28/18 Unknown Urine Mucus Rare /hpf (None) H 10/28/18 Unknown Urine Yeast (Budding) Occasional /hpf (None) H 10/28/18 Unknown Urine HCG, Qual Not Detected (Not Detectd) 10/28/18 Unknown Stool Occult Blood Negative (Negative) 10/31/18 13:00 IgE 31.10 IU/mL (0.00-114.00) 10/30/18 18:56 Rheumatoid Factor 8 IU/mL (0-15) 10/30/18 18:56 Cycl Citrul Peptide IgG 0.7 U/mL 10/30/18 18:56 Cyclic Citrull Peptide NEGATIVE (NEGATIVE) 10/30/18 18:56 AYAN Screen NEGATIVE (NEGATIVE) 10/30/18 18:56 Microbiology 10/28/18 18:30 Blood Blood Culture - Preliminary No Growth after 72 hours Assessment and Plan (1) Abdominal pain Current Visit: Yes Status: Acute Code(s): R10.9 - UNSPECIFIED ABDOMINAL PAIN SNOMED Code(s): 44680301 (2) Leukocytosis Narrative/Plan: 38-year-old woman presents to hospital with abdominal pain and shortness of breath. Has had a significant amount of stress as of late and has been smoking more than usual. Building a bit of hoarseness to her voice likely related to all these events. She has imaging study that shows evidence of some atypical pneumonitis a workup is in process and given the minimal lymphadenopathy base level is pending to evaluate for sarcoidosis. Legionella is also pending. The patient is a 28 quite a bit improved since the time of her admission. She's been seen by surgery with no plans for any intervention to the abdomen or lymph node biopsy at this time unless Andres level is quite elevated. Her leukocytosis is likely related to the steroid therapy has been given to improve her interstitial pneumonitis, so far does seem to be working she feels better than prior. Will likely discharge home on tapering dose of steroid and if all cultures are negative would complete a course of Levaquin that she is receiving at this time. Current Visit: Yes Status: Acute Code(s): D72.829 - ELEVATED WHITE BLOOD CELL COUNT, UNSPECIFIED SNOMED Code(s): 700867797 (3) Pneumonitis Current Visit: Yes Status: Acute Code(s): J18.9 - PNEUMONIA, UNSPECIFIED ORGANISM SNOMED Code(s): 256032533
[2018-11-01] MEDS: IPRATROPIUM-ALBUTEROL 3 ML NEB INHALATION SCH ×3 (07:11→20:06)
[2018-11-01] MEDS: BUDESONIDE 0.5 MG/2 ML NEBU INHALATION SCH ×2 (07:11→20:06)
[2018-11-01 08:07] LABS: Basophils # (A) 0.1 k/uL (0-0.2); Basophils % (A) 1 %; Eosinophils # (A) 0.2 k/uL (0-0.7); Eosinophils % (A) 2 %; HCT 31.2 % (34.0-46.0); HGB 10.1 gm/dL (11.4-16.0); Lymphocytes # (A) 3.9 k/uL (1.0-4.8); Lymphocytes % (A) 40 %; MCH 30.1 pg (25.0-35.0); MCHC 32.4 g/dL (31.0-37.0); MCV 93.2 fL (80.0-100.0); Mean Platelet Volume 7.9; Monocytes # (A) 0.3 k/uL (0-1.0); Monocytes % (A) 3 %; Neutrophils # (A) 5.3 k/uL (1.3-7.7); Neutrophils % (A) 54 %; Platelet Count 304 k/uL (150-450); RBC 3.34 m/uL (3.80-5.40); WBC 9.9 k/uL (3.8-10.6)
[2018-11-01 08:14] LABS: Angiotensin-1 Converting Enz. 26 U/L (8-52)
[2018-11-01 08:31] LABS: African American GFR (CKD) >90 (>60 ml/min/1.73 sqM); Anion Gap 2 mmol/L; Blood Urea Nitrogen 10 mg/dL (7-17); Calcium 8.3 mg/dL (8.4-10.2); Carbon Dioxide 24 mmol/L (22-30); Chloride 113 mmol/L (98-107); Glucose 78 mg/dL (74-99); Potassium 4.1 mmol/L (3.5-5.1); Sodium 139 mmol/L (137-145)
[2018-11-01] MEDS: IBUPROFEN 800 MG TAB PO SCH ×4 (08:34→20:08)
[2018-11-01] MEDS: HEPARIN SODIUM,PORCINE 5,000 UNIT/ML 1 ML VIAL SQ SCH ×2 (08:35→17:26)
[2018-11-01] MEDS: FLUoxetine HCL 20 MG CAP PO SCH (08:35)
[2018-11-01] MEDS: NICOTINE 14MG/24HR PATCH TRANSDERM SCH (08:35)
[2018-11-01] MEDS: GABAPENTIN 300 MG CAP PO SCH ×4 (08:35→20:07)
[2018-11-01] MEDS: PANTOPRAZOLE 40 MG/10 ML VIAL IVP SCH ×2 (08:35→20:08)
[2018-11-01] MEDS: ALPRAZolam 1 MG TAB PO PRN (10:39)
--- NOTE | 2018-11-01 11:12 | P.PN ---
Subjective Progress Note Date: 11/01/18 Principal diagnosis: Pulmonary fibrosis, axillary and mediastinal lymphadenopathy, ascites, right upper quadrant abdominal pain, acute exacerbation of COPD, leukocytosis, history of rheumatoid arthritis, fibromyalgia, anxiety, depression, active smoker 11/01/2018, patient seen eval reexamined during the rounds still have ongoing shortness of breath some dry cough is present denies any chest pain labs reviewed medications reviewed she is still short of breath but however breathing treatment has been helping slightly better compared to yesterday This is a 38-year-old female who presented emergency department complaining of right chest pain and cough. She states it started about 5 days ago. She does not have any fevers. She does complain of night sweats. She states that her best friend of cancer last week and she was at the hospital and around a lot of other people. She does smoke one to one and half packs per day. She does have a history of asthma and COPD. She uses Symbicort and Ventolin at home. She does not have a home nebulizer or oxygen. She does complain of seasonal ALLERGIES. She states she really has a lot of pain when she coughs but is not producing any phlegm. She states the only exposure she can think of is that she was in her garage with a citronella candle and the garage door closed and the next day she noticed black soot around her nose. Per the emergency department notes the patient was having right upper quadrant abdominal pain as well. The pain was causing her to have shortness of breath. She does have intermittent diarrhea. The patient's chest x-ray shows left basilar minimal infiltrate or atelectasis. She also had a CT of the chest which showed patchy groundglass interstitial infiltrates in both lungs. A few paratracheal lymph nodes. Multiple axillary lymph nodes. Objective - Vital Signs Vital signs: Vital Signs Temp 98.5 F 11/01/18 08:20 Pulse 75 11/01/18 08:20 Resp 16 11/01/18 08:20 BP 95/55 11/01/18 08:20 Pulse Ox 98 11/01/18 08:20 Intake & Output 10/31/18 11/01/18 11/01/18 18:59 06:59 18:59 Intake Total 150 Balance 150 Intake: Intake, IV Titration 150 Amount Sodium Chloride 0.9% 1, 150 000 ml @ 50 mls/hr IV . Q20H [facility] Rx#:[id number] Other: Voiding Method Toilet # Voids 1 1 - Exam Gen.: Patient is alert and oriented 3, no acute distress Cardiovascular: Regular rate and rhythm,/S2 Lungs: Diminished breath sounds bilaterally with scattered expiratory wheezing Abdomen: Soft mildly diffusely tender in the right upper quadrant, no rebounding or guarding, positive bowel sounds Extremities: No edema - Labs CBC & Chem 7: 11/01/18 07:16 11/01/18 07:16 Labs: Abnormal Lab Results - Last 24 Hours (Table) 10/30/18 10/31/18 11/01/18 Range/Units 18:56 11:09 07:16 RBC 3.34 L (3.80-5.40) m/uL Hgb 10.1 L (11.4-16.0) gm/dL Hct 31.2 L (34.0-46.0) % ESR 24 H (0-20) mm/hr Chloride (98-107) mmol/L Calcium (8.4-10.2) mg/dL Iron 24 L (50-170) ug/dL Iron Saturation 8.86 L (12.00-45.00) 11/01/18 Range/Units 07:16 RBC (3.80-5.40) m/uL Hgb (11.4-16.0) gm/dL Hct (34.0-46.0) % ESR (0-20) mm/hr Chloride 113 H (98-107) mmol/L Calcium 8.3 L (8.4-10.2) mg/dL Iron (50-170) ug/dL Iron Saturation (12.00-45.00) Microbiology - Last 24 Hours (Table) 10/28/18 18:30 Blood Culture - Preliminary Blood No Growth after 72 hours Assessment and Plan Assessment: Interstitial pneumonia versus acute lung injury due to inhalation Nonspecific mediastinal lymphadenopathy Leukocytosis resolved Noted workup for connective tissue diseases negative Is and trach edema interstitial edema unclear etiology Plan: Continue antibiotics Breathing treatment Observe clinical course closely She will need another computed tomography scan as outpatient when recovers Follow-up on culture results and reports Agree with consultation with general surgery if lymph nodes are accessible Time with Patient: Greater than 30
[2018-11-01] MEDS: LEVOFLOXACIN 750MG-D5W PMX 750 MG in DEXTROSE/WATER 1 150ML.BAG IVPB SCH (12:57)
[2018-11-01 16:19] LABS: Basophils % (A) 1 %; Eosinophils # (A) 0.1 k/uL (0-0.7); Eosinophils % (A) 1 %; HCT 32.6 % (34.0-46.0); HGB 10.5 gm/dL (11.4-16.0); Lymphocytes # (A) 2.6 k/uL (1.0-4.8); Lymphocytes % (A) 35 %; MCH 30.1 pg (25.0-35.0); MCHC 32.1 g/dL (31.0-37.0); MCV 93.5 fL (80.0-100.0); Mean Platelet Volume 6.6; Monocytes # (A) 0.3 k/uL (0-1.0); Monocytes % (A) 4 %; Neutrophils # (A) 4.4 k/uL (1.3-7.7); Neutrophils % (A) 58 %; Platelet Count 322 k/uL (150-450); RBC 3.49 m/uL (3.80-5.40); RDW 13.4 % (11.5-15.5); WBC 7.6 k/uL (3.8-10.6)
--- NOTE | 2018-11-01 17:20 | PN ---
PROGRESS NOTE CHIEF COMPLAINT: Right lower lobe pneumonitis, right-sided chest pain, right upper quadrant pain. HISTORY OF PRESENT ILLNESS: This lady is still having the same issues. She is still having the same amount of pain. So far, very little has shown up. White count was exceedingly high yesterday; it is down to 9000 now. She has been seen by Surgery, Gastroenterology and Pulmonology, and nothing very ominous has shown up yet. She is not complaining of chills, fever, chest pain, but she still has the right upper quadrant abdominal pain. PHYSICAL EXAMINATION: Her chest is clear except for scattered rales. Cardiac exam is normal. Abdomen is soft and nontender except in her right upper quadrant. There is no mass. Axillary, supraclavicular and cervical nodes do not seem to be particularly enlarged, but there is some adenopathy on some of her contrast studies. IMPRESSION: 1. Right lower lobe pneumonitis. 2. Possible interstitial edema in both lower lobes. 3. Possible mediastinal adenopathy. 4. Right upper quadrant pain, etiology unknown. 5. Iron deficiency anemia. 6. Weight loss over the last 6 months. PLAN: 1. To continue workup and evaluation. 2. Consult with Hematology and Oncology. MMODL / IJN: [id number] /
[2018-11-01] MEDS: SODIUM CHLORIDE 0.9% 1,000 ML IV SCH (17:25)
[2018-11-01] MEDS: MONTELUKAST 10 MG TAB PO SCH (20:07)
[2018-11-01] MEDS: traZODone HCL 100 MG TAB PO SCH (20:08)
--- NOTE | 2018-11-02 00:40 | P.CONS ---
History of Present Illness - Reason for Consult Consult date: 11/01/18 Leukocytosis, Adenopathy - History of Present Illness The patient is a 38-year-old white female, who had presented to the hospital complaining of right-sided chest pain and dry cough, as well as upper abdominal pain. Symptoms had started about 2-3 days prior to presentation. She denied any fever or chills or expectoration with a cough. There was questionable exposure to insect bites and possibly a Citronella candle. On admission chest imaging revealed bilateral interstitial infiltrates. There was borderline mediastinal adenopathy with the largest being 1.3 cm in the paratracheal region. Bilateral axillary nodes, maximal 1 cm also mentioned. The patient has been treated with antibiotics and steroids, with improvement in her chest symptoms. On admission WBC was normal. After receiving steroids it went up to 20,000 with predominantly neutrophils. Consult was therefore placed for further evaluation and recommendations. WBC is back into the normal range today. She was evaluated by general surgery, and no palpable nodes, especially in the axilla were noted. Labs included SHANIQUE level which was normal. CT of the abdomen and pelvis showed mildly enlarged liver with steatosis. No enlarged adenopathy was seen in the abdomen. Mild perihepatic fluid and mesenteric haziness was noted. He denied any prior history of blood problems or malignancy. She does have a history of smoking Review of Systems Constitutional: Reports fatigue Eyes: denies blurred vision, denies pain Ears: deny: decreased hearing, ear discharge, earache, tinnitus Ears, nose, mouth and throat: Denies headache, Denies sore throat Cardiovascular: Reports chest pain, Reports dyspnea on exertion Respiratory: Reports cough Gastrointestinal: Reports abdominal pain Genitourinary: Denies dysuria, Denies hematuria Musculoskeletal: Denies myalgias Integumentary: Denies pruritus, Denies rash Neurological: Denies numbness, Denies weakness Psychiatric: Reports anxiety, Denies depression Endocrine: Reports fatigue, Denies weight change Hematologic/Lymphatic: Reports as per HPI Past Medical History Past Medical History: Asthma, COPD, Fibromyalgia, GERD/Reflux, Osteoarthritis (OA), Respiratory Disorder, Rheumatoid Arthritis (RA) Additional Past Medical History / Comment(s): PANCREATITIS, RESTLESS LEG History of Any Multi-Drug Resistant Organisms: None Reported Past Surgical History: Appendectomy, Section, Cholecystectomy, Tonsillectomy, Tubal Ligation, Uterine Ablation Additional Past Surgical History / Comment(s): PANNICULECTOMY; Uterine ablation with fissure clips. Left collarbone surgery - shanna placement, bone graft, jonh carpal tunnel, benign rt breast bx. Left C6 Transforaminal Epidural steroid injection Jan 2017 at [facility]. C5/6 nerve Root block Jan 2017 at [facility], PAIN CLINIC PROCEDURES Past Anesthesia/Blood Transfusion Reactions: No Reported Reaction Past Psychological History: ADD/ADHD, Anxiety, Bipolar, Depression Smoking Status: Current every day smoker Past Alcohol Use History: Rare Additional Past Alcohol Use History / Comment(s): smokes 1ppd from age 18 Past Drug Use History: Marijuana - Past Family History Mother Family Medical History: Deep Vein Thrombosis (DVT) Additional Family Medical History / Comment(s): leiden factor 5 Medications and Allergies Home Medications Medication Instructions Recorded Confirmed Type Dextroamphetamine/Amphetamine 20 mg PO BID 02/07/14 10/28/18 History [Adderall] ALPRAZolam [Xanax] 1 mg PO TID PRN 08/11/18 10/28/18 History Albuterol Inhaler [Ventolin Hfa 1 - 2 puff INHALATION RT-Q6H PRN 08/11/18 10/28/18 History Inhaler] Budesonide-Formot 160-4.5 Mcg 2 puff INHALATION 1400 08/11/18 10/28/18 History [Symbicort 160-4.5 Mcg Inhaler] Ergocalciferol (Vitamin D2) 50,000 unit PO Q30D 08/11/18 10/28/18 History [Vitamin D2] Fluticasone Nasal [place] [Flonase 1 spray EA NOSTRIL DAILY PRN 08/11/18 10/28/18 History Nasal [place]] Gabapentin [Neurontin] 600 mg PO QID 08/11/18 10/28/18 History Hydrochlorothiazide 12.5 mg PO DIRECTED PRN 08/11/18 10/28/18 History Ibuprofen [Motrin] 800 mg PO QID 08/11/18 10/28/18 History Ranitidine HCl [Zantac] 150 mg PO BID 08/11/18 10/28/18 History rOPINIRole HCL 0.5 mg PO HS 08/11/18 10/28/18 History tiZANidine HCL [Zanaflex] 2 mg PO DAILY 08/11/18 10/28/18 History traZODone HCL 100 mg PO HS 08/11/18 10/28/18 History FLUoxetine HCL [PROzac] 20 mg PO DAILY 09/11/18 10/28/18 History Allergies Allergy/AdvReac Type Severity Reaction Status Date / Time sulfamethoxazole Allergy Rash/Hives, Verified 10/28/18 18:13 [From Bactrim] SEIZURE trimethoprim [From Bactrim] Allergy Rash/Hives Verified 10/28/18 18:13 tdap Allergy Anaphylaxis Uncoded 10/28/18 18:04 Physical Exam Vitals: Vital Signs Temp Pulse Pulse Resp BP Pulse Ox 11/01/18 13:24 76 11/01/18 13:14 76 11/01/18 08:20 98.5 F 75 16 95/55 98 11/01/18 07:26 76 11/01/18 07:12 76 11/01/18 02:50 65 92/51 11/01/18 01:28 97.7 F 65 18 85/42 95 10/31/18 19:46 73 10/31/18 19:33 69 10/31/18 18:47 98.3 F 58 L 17 101/60 99 Intake and Output 10/31/18 11/01/18 11/01/18 22:59 06:59 14:59 Intake Total 150 Balance 150 Intake: Intake, IV Titration 150 Amount Sodium Chloride 0.9% 1, 150 000 ml @ 50 mls/hr IV . Q20H [facility] Rx#:[id number] Other: Voiding Method Toilet Toilet # Voids 1 - Constitutional General appearance: no acute distress - EENT Eyes: EOMI, PERRLA ENT: hearing grossly normal, normal oropharynx - Neck Neck: no lymphadenopathy Thyroid: bilateral: normal size - Respiratory Respiratory: bilateral: CTA - Cardiovascular Rhythm: regular Heart sounds: normal: S1, S2 - Gastrointestinal General gastrointestinal: normal bowel sounds, soft Localized gastrointestinal: tender: RUQ - Integumentary Integumentary: normal - Neurologic Neurologic: CNII-XII intact - Musculoskeletal Musculoskeletal: strength equal bilaterally - Psychiatric Psychiatric: A&O x's 3, appropriate affect Results CBC & Chem 7: 11/01/18 15:50 11/01/18 07:16 Labs: Abnormal Lab Results - Last 24 Hours (Table) 10/30/18 10/31/18 11/01/18 Range/Units 18:56 11:09 07:16 RBC 3.34 L (3.80-5.40) m/uL Hgb 10.1 L (11.4-16.0) gm/dL Hct 31.2 L (34.0-46.0) % ESR 24 H (0-20) mm/hr Chloride (98-107) mmol/L Calcium (8.4-10.2) mg/dL Iron 24 L (50-170) ug/dL Iron Saturation 8.86 L (12.00-45.00) 11/01/18 Range/Units 07:16 RBC (3.80-5.40) m/uL Hgb (11.4-16.0) gm/dL Hct (34.0-46.0) % ESR (0-20) mm/hr Chloride 113 H (98-107) mmol/L Calcium 8.3 L (8.4-10.2) mg/dL Iron (50-170) ug/dL Iron Saturation (12.00-45.00) Microbiology - Last 24 Hours (Table) 10/31/18 11:09 Blood Culture - Preliminary Blood No Growth after 24 hours 10/28/18 18:30 Blood Culture - Preliminary Blood No Growth after 72 hours Chest x-ray: report reviewed CT scan - abdomen: report reviewed CT scan - chest: report reviewed CT scan - pelvis: report reviewed US - abdomen: report reviewed Assessment and Plan (1) Leukocytosis Narrative/Plan: This is definitely reactive. It was normal on presentation, with the increase related to steroid use With predominant neutrophilia. This has subsequently normalized. No primary hematologic abnormality is suspected. Current Visit: Yes Status: Acute Code(s): D72.829 - ELEVATED WHITE BLOOD CELL COUNT, UNSPECIFIED SNOMED Code(s): 172105301 (2) Lymphadenopathy Narrative/Plan: This is quite nonspecific presently. Normal imaging showed no obvious adenopathy. On my exam did not feel any palpable adenopathy, including in the axilla. Mediastinal nodes noted are borderline and nonspecific with the largest the 1.3 cm range. Given the patient's presentation this is more likely to be inflammatory. Certainly, at this time there is no good target for biopsy. Current Visit: Yes Status: Acute Code(s): R59.1 - GENERALIZED ENLARGED LYMPH NODES SNOMED Code(s): 75109466 (3) Abdominal pain Narrative/Plan: Etiology of this is unclear. Labs as well as imaging studies have not shown any definite cause. Reactive inflammation such as a panniculitis (given the mesenteric haziness) due to the same process that caused her pneumonitis is a possibility, among others. In that case improvement would be expected with current management. If symptoms persist, then the patient will need additional workup such as repeat imaging, EGD etc. continue to monitor Current Visit: Yes Status: Acute Code(s): R10.9 - UNSPECIFIED ABDOMINAL PAIN SNOMED Code(s): 20042860 (4) Anemia Narrative/Plan: This is mild, with labs showing low iron studies. Given her history of jeovanny rrhagia, this most likely is due to menstrual losses. Patient can be started on oral iron once current abdominal symptoms improve Current Visit: Yes Status: Acute Code(s): D64.9 - ANEMIA, UNSPECIFIED SNOMED Code(s): 183906524
[2018-11-02] MEDS: HEPARIN SODIUM,PORCINE 5,000 UNIT/ML 1 ML VIAL SQ SCH ×4 (05:19→23:38)
[2018-11-02] MEDS: GABAPENTIN 300 MG CAP PO SCH ×4 (06:14→20:52)
[2018-11-02] MEDS: IPRATROPIUM-ALBUTEROL 3 ML NEB INHALATION SCH ×3 (09:13→20:22)
[2018-11-02] MEDS: BUDESONIDE 0.5 MG/2 ML NEBU INHALATION SCH ×2 (09:13→20:22)
[2018-11-02] MEDS: FLUoxetine HCL 20 MG CAP PO SCH (09:47)
[2018-11-02] MEDS: NICOTINE 14MG/24HR PATCH TRANSDERM SCH (09:47)
[2018-11-02] MEDS: IBUPROFEN 800 MG TAB PO SCH ×4 (09:52→23:37)
[2018-11-02] MEDS: MORPHINE SULFATE 2 MG/ML SYRINGE IV PRN ×2 (10:44→14:43)
[2018-11-02] MEDS: PANTOPRAZOLE 40 MG/10 ML VIAL IVP SCH ×2 (10:45→20:51)
[2018-11-02] MEDS: SODIUM CHLORIDE 0.9% 1,000 ML IV SCH (10:53)
[2018-11-02] MEDS: LEVOFLOXACIN 750MG-D5W PMX 750 MG in DEXTROSE/WATER 1 150ML.BAG IVPB SCH (10:53)
--- NOTE | 2018-11-02 11:03 | PN ---
PROGRESS NOTE CHIEF COMPLAINT: Bronchopneumonia and right upper quadrant abdominal pain. HISTORY OF PRESENT ILLNESS: This lady states her pain is worse today. Studies are ongoing. She has been seen by Oncology and Hematology. She has had no vomiting. She has had no fever, chills. Studies have been unremarkable so far in terms of elucidating the cause of her right upper quadrant pain. She has not been running a temperature. Blood sugars have settled down. She is also now complaining of some blurry vision. REVIEW OF SYSTEMS: She has had no other symptoms. She is not short of breath or coughing. Physical exam: Head, ears, eyes, nose, mouth, throat seemed to be normal grossly. Chest is clear to auscultation. Cardiac exam is normal with sinus rhythm and no murmurs. The abdomen is reagent tender helper in the upper quadrant and over the epigastrium. Bowel sounds are present. Extremities: Normal. IMPRESSION: 1. Pneumonitis. 2. Unexplained right upper quadrant pain. 3. Unexplained anemia. 4. History of weight loss. 5. Blurry vision. PLAN: 1. Continue with consultants trying to elucidate the etiology of the right upper quadrant pain. 2. Meanwhile can continue on current program. 3. We are waiting further possible evaluation by Gastroenterology. MMODL / IJN: [id number] /
--- NOTE | 2018-11-02 11:54 | XR ---
EXAMINATION TYPE: XR chest 2V DATE OF EXAM: 11/02/2018 HISTORY: pneumonia. REFERENCE: Previous study of 10/30/2018. FINDINGS: There is been previous internal fixation of the left clavicle. The lungs are clear. Pleural space are clear. The heart is not enlarged. IMPRESSION: NO ACTIVE INTRATHORACIC DISEASE.
--- NOTE | 2018-11-02 12:06 | P.PN ---
Progress Note - Text Progress Note Date: 11/02/18 The patient continues to have generalized pain. She is not feeling any better than admission. Angiotensin-converting enzyme is within normal range. At present I think the yield of a lymph node biopsy would be very low. I would be happy to see her she shows any sign of progressive lymphadenopathy. Please notify me if I can be of further assistance thank you
[2018-11-02] MEDS: ALPRAZolam 1 MG TAB PO PRN ×2 (13:37→20:51)
--- NOTE | 2018-11-02 16:25 | P.PN ---
Subjective Progress Note Date: 11/02/18 Principal diagnosis: Pulmonary fibrosis, axillary and mediastinal lymphadenopathy, ascites, right upper quadrant abdominal pain, acute exacerbation of COPD, leukocytosis, history of rheumatoid arthritis, fibromyalgia, anxiety, depression, active smoker 11/02/2018, patient seen eval reexamined during the rounds her symptoms of cough shortness of breath has improved significantly however continued to have right upper quadrant pain general surgery is following, x-ray reviewed and done today unremarkable 11/01/2018, patient seen eval reexamined during the rounds still have ongoing shortness of breath some dry cough is present denies any chest pain labs reviewed medications reviewed she is still short of breath but however breathing treatment has been helping slightly better compared to yesterday This is a 38-year-old female who presented emergency department complaining of right chest pain and cough. She states it started about 5 days ago. She does not have any fevers. She does complain of night sweats. She states that her best friend of cancer last week and she was at the hospital and around a lot of other people. She does smoke one to one and half packs per day. She does have a history of asthma and COPD. She uses Symbicort and Ventolin at home. She does not have a home nebulizer or oxygen. She does complain of seasonal ALLERGIES. She states she really has a lot of pain when she coughs but is not producing any phlegm. She states the only exposure she can think of is that she was in her garage with a citronella candle and the garage door closed and the next day she noticed black soot around her nose. Per the emergency department notes the patient was having right upper quadrant abdominal pain as well. The pain was causing her to have shortness of breath. She does have intermittent diarrhea. The patient's chest x-ray shows left basilar minimal infiltrate or atelectasis. She also had a CT of the chest which showed patchy groundglass interstitial infiltrates in both lungs. A few paratracheal lymph nodes. Multiple axillary lymph nodes. Objective - Vital Signs Vital signs: Vital Signs Temp 98.1 F 11/02/18 15:15 Pulse 69 11/02/18 15:15 Resp 15 11/02/18 15:15 BP 107/67 11/02/18 15:15 Pulse Ox 98 11/02/18 15:15 Intake & Output 11/01/18 11/02/18 11/02/18 18:59 06:59 18:59 Intake Total 760 760 Balance 760 760 Intake: IV 400 400 Sodium Chloride 0.9% 1, 400 400 000 ml @ 50 mls/hr IV . Q20H [facility] Rx#:[id number] Oral 360 360 Other: Voiding Method Toilet Toilet Toilet # Voids 1 - Exam Gen.: Patient is alert and oriented 3, no acute distress Cardiovascular: Regular rate and rhythm,/S2 Lungs: Diminished breath sounds bilaterally with scattered expiratory wheezing Abdomen: Soft mildly diffusely tender in the right upper quadrant, no rebounding or guarding, positive bowel sounds Extremities: No edema - Labs CBC & Chem 7: 11/01/18 15:50 11/01/18 07:16 Labs: Microbiology - Last 24 Hours (Table) 10/31/18 11:09 Blood Culture - Preliminary Blood No Growth after 48 hours 10/28/18 18:30 Blood Culture - Preliminary Blood No Growth after 96 hours Assessment and Plan Assessment: Interstitial pneumonia versus acute lung injury due to inhalation clinically stable Nonspecific mediastinal lymphadenopathy Leukocytosis resolved Noted workup for connective tissue diseases negative interstitial edema unclear etiology Right upper quadrant pain Plan: Continue antibiotics Breathing treatment Observe clinical course closely She will need another computed tomography scan as outpatient when recovers Follow-up on culture results and reports General surgery is following Agree with consultation with general surgery if lymph nodes are accessible Time with Patient: Greater than 30
[2018-11-02 20:25] LABS: Glucose,Whole Blood 126 mg/dL (75-99)
[2018-11-02] MEDS: traZODone HCL 100 MG TAB PO SCH (20:52)
[2018-11-02] MEDS: MONTELUKAST 10 MG TAB PO SCH (20:52)
[2018-11-03 03:04] LABS: Mycoplasma IgM Antibody 0.27 INDEX (<=0.90)
[2018-11-03] MEDS: ALPRAZolam 1 MG TAB PO PRN (07:19)
[2018-11-03 07:50] VITALS: BP 88/51; PULSE 68; RESP 16; TEMP 97.9
[2018-11-03] MEDS: SODIUM CHLORIDE 0.9% 1,000 ML IV SCH (08:17)
[2018-11-03] MEDS: NICOTINE 14MG/24HR PATCH TRANSDERM SCH (08:55)
[2018-11-03] MEDS: PANTOPRAZOLE 40 MG/10 ML VIAL IVP SCH (08:55)
[2018-11-03] MEDS: FLUoxetine HCL 20 MG CAP PO SCH (08:55)
[2018-11-03] MEDS: GABAPENTIN 300 MG CAP PO SCH (08:55)
[2018-11-03] MEDS: IBUPROFEN 800 MG TAB PO SCH (08:55)
[2018-11-03] MEDS: HEPARIN SODIUM,PORCINE 5,000 UNIT/ML 1 ML VIAL SQ SCH (09:00)
[2018-11-03] MEDS: IPRATROPIUM-ALBUTEROL 3 ML NEB INHALATION SCH (09:09)
[2018-11-03] MEDS: BUDESONIDE 0.5 MG/2 ML NEBU INHALATION SCH (09:09)
--- NOTE | 2018-11-03 13:10 | DS ---
DISCHARGE SUMMARY CHIEF COMPLAINT: Right upper quadrant and right lower chest pain, cough, anemia, weight loss. HISTORY OF PRESENT ILLNESS AND PHYSICAL EXAM: Details of this lady's history and physical can be found in the initial workup. LABORATORY STUDIES: While she was in a hospital she had laboratory studies, details of which can be found in the laboratory section of her chart. COURSE IN HOSPITAL: After she was admitted, she was started on bedrest and on IV fluids. It was thought that she had a right lower lobe pneumonitis and she was treated. She was seen by Pulmonology. She also continued to complain of right upper quadrant pain and no abnormality was found or etiology. She was seen by GI. There was a question of some adenopathy in the chest and axillae and she was seen by General Surgery as well. She was also seen by Hematology/Oncology. She had an unexplained anemia and she had been losing weight over the last 6 months. She continued to complain of pain in the right upper quadrant throughout the entire hospitalization. No definite cause could be found. Consultants had signed off and felt that she could be discharged to outpatient followup and continued workup. She is going to be discharged and then she signed out AMA. FINAL DIAGNOSES: 1. Right lower lobe pneumonitis. 2. Right upper quadrant pain, etiology unknown. 3. Anemia, etiology unknown. 4. History of abnormal weight loss, etiology unknown. 5. Fluctuating blood sugars, probably related to steroids. 6. Leukocytosis, probably related to steroids. OPERATIONS: None. CONSULTATIONS: Hematology/Oncology, General Surgery, Gastroenterology, Pulmonology, Infectious Disease. She is improved. MMODL / IJN: [id number] /
[2018-11-03 14:59] LABS: Alt. alternata IgE Class CLASS 0; Alternaria alternata IgE <0.35 kU/L (<0.35); Asperg. fumagatus IgE <0.35 kU/L (<0.35); Asperg. fumagatus IgE Class CLASS 0; Bermuda Grass IgE <0.35 kU/L (<0.35); Birch(Com.Silvr) IgE <0.35 kU/L (<0.35); Birch(Com.Silvr) IgE Class CLASS 0; Cat Epith & Dander IgE <0.35 kU/L (<0.35); Cat Epith & Dander IgE Class CLASS 0; Clad herbarum IgE <0.35 kU/L (<0.35); Cockroach IgE <0.35 kU/L (<0.35); Cottonwood IgE <0.35 kU/L (<0.35); Dermato. Pteronyssinus IgE <0.35 kU/L (<0.35); Dermato. farinae IgE <0.35 kU/L (<0.35); Dermato. farinae IgE Class CLASS 0; Dog Dander IgE <0.35 kU/L (<0.35); Elm IgE <0.35 kU/L (<0.35); Maple (Box Elder) IgE <0.35 kU/L (<0.35); Maple (Box Elder) IgE Class CLASS 0; Mountain Cedar IgE <0.35 kU/L (<0.35); Mountain Cedar IgE Class CLASS 0; Mouse Urine IgE Class CLASS 0; Nettle IgE <0.35 kU/L (<0.35); Nettle IgE Class CLASS 0; Oak IgE <0.35 kU/L (<0.35); Penicillium notatum IgE Class CLASS 0; Rough Marshelder IgE <0.35 kU/L (<0.35); Rough Marshelder IgE Class CLASS 0; Timothy Grass IgE <0.35 kU/L (<0.35); White Ash IgE Class CLASS 0
[2018-11-05 22:37] LABS: Aspergillus fumigatus IgG Not detected (Not detected); Aureobasidium pullulans IgG 7.2 mcg/mL (< 13.6); Cladosporium herbarium IgG 46.4 mcg/mL (< 14.7); Phoma ssp. IgG 15.7 mcg/mL (< 6.6); Saccaharomospora viridis Not detected (Not detected); Saccaharopoly. rectivirgula Not detected (Not detected)
== END 2018-11-03 09:13 | disposition left against medical advice (07) | DRG 194 ==
LOC: EC 17:51 → 4SSUR 21:18
PROVIDERS: ADMIT Family Medicine; ATTEND Family Medicine
DX: J18.1 Lobar pneumonia, unspecified organism (principal); J44.0 Chronic obstructive pulmonary disease with (acute) lower respiratory infection; J44.1 Chronic obstructive pulmonary disease with (acute) exacerbation; J45.901 Unspecified asthma with (acute) exacerbation; F31.30 Bipolar disorder, current episode depressed, mild or moderate severity, unspecified; R18.8 Other ascites; I95.9 Hypotension, unspecified; J84.10 Pulmonary fibrosis, unspecified; R16.0 Hepatomegaly, not elsewhere classified; E86.0 Dehydration; D72.829 Elevated white blood cell count, unspecified; D50.9 Iron deficiency anemia, unspecified; R10.11 Right upper quadrant pain; G25.81 Restless legs syndrome; K21.9 Gastro-esophageal reflux disease without esophagitis; M79.7 Fibromyalgia; M06.9 Rheumatoid arthritis, unspecified; T38.0X5A Adverse effect of glucocorticoids and synthetic analogues, initial encounter; M19.90 Unspecified osteoarthritis, unspecified site; F90.9 Attention-deficit hyperactivity disorder, unspecified type; R49.0 Dysphonia; F41.9 Anxiety disorder, unspecified; R59.1 Generalized enlarged lymph nodes; N92.0 Excessive and frequent menstruation with regular cycle; K59.00 Constipation, unspecified; R19.7 Diarrhea, unspecified; G89.29 Other chronic pain; M79.3 Panniculitis, unspecified; M54.5 Low back pain; F17.210 Nicotine dependence, cigarettes, uncomplicated; Z71.6 Tobacco abuse counseling; Z79.51 Long term (current) use of inhaled steroids; Z79.1 Long term (current) use of non-steroidal anti-inflammatories (NSAID); Z79.899 Other long term (current) drug therapy; Z90.49 Acquired absence of other specified parts of digestive tract; Z87.19 Personal history of other diseases of the digestive system; Z98.891 History of uterine scar from previous surgery; Z98.890 Other specified postprocedural states; Z98.51 Tubal ligation status; Z88.2 Allergy status to sulfonamides; Z88.7 Allergy status to serum and vaccine; Z83.2 Family history of diseases of the blood and blood-forming organs and certain disorders involving the immune mechanism
CPT/HCPCS: 36415; 71046; 71250; 74177; 76705; 80048; 80053; 81001; 81025; 82024; 82103; 82150; 82164; 82272; 82533; 82607; 82728; 82746; 82785; 83036; 83540; 83550; 83605; 83690; 84145; 84484; 85025; 85379; 85652; 86001; 86003; 86038; 86140; 86200; 86431; 86606; 86609; 86738; 87040; 93005; 94640; 96361; 96374; 96375; 99285

== ENCOUNTER 2018-11-17 08:30 | Day surgery (SDC) | payer OTHER ==
[2018-11-13 11:24] VITALS: BMI 22.3
[2018-11-17] MEDS ORDERED: LIDOCAINE 1% 20 ML VIAL (10MG/ML) FOR IV START INTRADERMA ONE (09:22)
[2018-11-17 09:28] LABS: Glucose,Whole Blood 95 mg/dL (75-99)
[2018-11-17 09:32] VITALS: TEMP 98.3
--- NOTE | 2018-11-17 10:03 | P.PCN ---
Date of Procedure: 11/17/18 Procedure(s) Performed: . PROCEDURE 1. Cervical epidural steroid injection under fluoroscopic guidance, C7-T1 2. Cervical epidurogram. PREOPERATIVE DIAGNOSIS: 1- Cervical Degenerative Disc Diseases 2- Cervical radiculopathy., 3-cervical spondylosis with cervical Facet arthropathy without myelopathy POSTOPERATIVE DIAGNOSIS: : 1- Cervical Degenerative Disc Diseases , 2- Cervical radiculopathy. 3-,cervical spondylosis with cervical Facet arthropathy without myelopathy ANESTHESIA: Local anesthesia with lidocaine 1 % 3 ml ,no IV sedation (patient was extremely sleepy in the preoperative holding area for this reason, sedation was not given) EBL 0 PROCEDURE INDICATION: The patient with neck pain and radiculitis unresponsive to conservative treatment consents for procedure. PROCEDURE DESCRIPTION / TECHNIQUE: The patient was seen and identified in the preoperative area. Risks, benefits, complications, including but not limited to infections ,bleeding , allergic reactions to the medications ,and not complete pain releife, and alternatives were discussed with the patient, the patient agreed to proceed with the procedure and signed the consent. Patient was taken to the OR and time out was completed. The patient was placed in the prone position on the procedure table. A pillow was placed under the patients chest to increase the cervical interlaminar space. The cervical area was prepped and draped in the usual sterile fashion. Vital signs were closely monitored during the procedure. Using anterior-posterior fluoroscopy, the C7-T1 interlaminar space was identified and the skin over this site was marked and then infiltrated with 1% lidocaine subcutaneously. Subsequently, a 20-gauge 3-1/2-inch Tuohy epidural needle was inserted and advanced toward the epidural space by means of the ``hanging-drop technique and guided by AP and lateral fluoroscopy. The correct needle position in the epidural space was verified with the injection of 2 mL of the water soluble contrast dye Isovue-200 and observing an excellent epidurogram with the epidural spread of the dye, after negative aspiration for blood and CSF and in the absence of paresthesias. Again after negative aspiration, mixture containing 20 mg Dexamethasone and 2 ml of preservative- free normal saline injected and a washout of epidurogram was seen. Needle was withdrawn intact, skin was cleansed, and bandages were applied. Complications= none. Disposition= patient was placed in supine position and transferred to the recovery room area in stable condition and there was no evidence of upper or lower extremity motor or sensory deficit after the procedure patient was discharged from recovery room after discharge criteria met and home discharge instructions was given by the staff and patient will follow with the pain clinic in 2-4 weeks
--- NOTE | 2018-11-17 10:12 | FL ---
EXAMINATION TYPE: FL guided pain mgmt statistic DATE OF EXAM: 11/17/2018 HISTORY: Flouroscopy time 7 seconds of fluoroscopy provided. IMPRESSION: 1. Fluoroscopy time.
[2018-11-17 10:55] VITALS: RESP 16
[2018-11-17 11:05] VITALS: BP 94/52; PULSE 56
[2018-11-17] MEDS ORDERED: IV FLUID CONTINUATION 1,000 ML IV ONE (11:07)
== END 2018-11-17 11:18 | disposition home or self-care (01) ==
LOC: ORPAIN 08:30
PROVIDERS: ATTEND Anesthesiology
DX: M50.10 Cervical disc disorder with radiculopathy, unspecified cervical region (principal); M47.22 Other spondylosis with radiculopathy, cervical region; J44.9 Chronic obstructive pulmonary disease, unspecified; K21.9 Gastro-esophageal reflux disease without esophagitis; F90.9 Attention-deficit hyperactivity disorder, unspecified type; Z88.2 Allergy status to sulfonamides; Z88.7 Allergy status to serum and vaccine
CPT/HCPCS: 62321; 81025; J1100; Q9966

== ENCOUNTER 2018-12-01 08:28 | Day surgery (SDC) | payer OTHER ==
[2018-12-01] MEDS ORDERED: LACTATED RINGERS 1,000 ML IV SCH (08:54)
[2018-12-01 08:59] VITALS: RESP 16; TEMP 97.7
[2018-12-01] MEDS ORDERED: LIDOCAINE 1% 20 ML VIAL (10MG/ML) FOR IV START INTRADERMA ONE (09:07)
[2018-12-01 09:10] VITALS: BMI 21.2
--- NOTE | 2018-12-01 10:04 | P.PCN ---
Date of Procedure: 12/01/18 Procedure(s) Performed: Diagnosis: Cervical radiculopathy Cervical degenerative disc disease POSTOPERATIVE DIAGNOSIS: Diagnoses: Cervical radiculopathy Cervical degenerative disc disease PROCEDURE Cervical Epidural steroid injection under fluoroscopic guidance at the C7-T1 interspace using left paramedian approach Cervical epidurogram ANESTHESIA: Local with 1% lidocaine 3 ml and IV sedation with Versed and fentanyl EBL: Minimal PROCEDURE INDICATION: The patient presents with cervical radicular symptoms unresponsive to conservative treatment. This is the second cervical epidural steroid injection. PROCEDURE DESCRIPTION / TECHNIQUE: The patient was seen and identified in the preoperative area. Risks, benefits, complications including but not limited to infections ,bleeding ,allergic reaction to the medications ,nerve damage and incomplete pain relief, and alternatives were discussed with the patient. The patient agreed to proceed with the procedure and signed the consent. IV was started, and vital signs were stable. Patient was taken to the OR and time out was completed. The patient was placed in the prone position on procedure table and a pillow was placed under the chest area. The cervical area was prepped and draped in the usual sterile fashion. Conscious sedation was used during the procedure to decrease patients anxiety. Vital signs was monitored during the entire procedure. Using anterior-posterior fluoroscopy, the C7-T1 interlaminar space was identifi ed and the skin over this site was marked and then infiltrated with 1% lidocaine subcutaneously. Subsequently, a 20-gauge Tuohy epidural needle was inserted and advanced toward the epidural space using the loss of resistance technique and guided by AP and 50 oblique fluoroscopy. The correct needle position in the epidural space was verified. After negative aspiration for blood and CSF and in the absence of paresthesias, Isovue 200 2 mLs was injected under live fluoroscopy with good epidural spread. After negative aspiration, a 5 ml mixture containing 10 mg of dexamethasone, 3 mL of preservative free normal saline and 1 mL of 1% lidocaine was injected. Needle was withdrawn intact, skin was cleansed, and bandages were applied. COMPLICATIONS: None DISPOSITION / PLANS: The patient was placed in a supine position and transferred to the recovery area in a stable condition for observation. There was no evidence of lower extremity motor or sensory deficit after the procedure. Patient was discharged from the recovery room after meeting discharge criteria. Home discharge instructions were given to the patient by the staff. The patient will be scheduled a follow-up in the clinic in 2-4 weeks.
[2018-12-01] MEDS ORDERED: IV FLUID CONTINUATION 1,000 ML IV ONE (10:09)
--- NOTE | 2018-12-01 10:20 | FL ---
Fluoroscopy INDICATION: Pain FINDINGS: Fluoroscopy time: 10 seconds. Images obtained: 3. IMPRESSIONS: 1. Documentation of fluoroscopy.
[2018-12-01 10:26] VITALS: BP 104/65; PULSE 66
== END 2018-12-01 10:36 | disposition home or self-care (01) ==
LOC: ORPAIN 08:28
PROVIDERS: ATTEND Anesthesiology
DX: M50.10 Cervical disc disorder with radiculopathy, unspecified cervical region (principal); M47.22 Other spondylosis with radiculopathy, cervical region; F17.200 Nicotine dependence, unspecified, uncomplicated; Z79.51 Long term (current) use of inhaled steroids; Z79.899 Other long term (current) drug therapy
CPT/HCPCS: 81025; 62321; J2250; J1100; J3010; Q9966; 99152

== ENCOUNTER → 2018-12-23 | Outpatient (CLI) | payer OTHER ==
--- NOTE | 2018-12-24 08:38 | MM ---
Reason for exam: additional evaluation requested from prior study. Last mammogram was performed 1 year and 3 months ago. History: Family history of breast cancer in maternal cousin at age 30. Benign excisional biopsy of the right breast, 2018. Physical Findings: Nurse did not find any significant physical abnormalities on exam. MG 3D Diag Mammo W/Cad JUVENAL Bilateral CC and MLO view(s) were taken. Prior study comparison: September 24, 2017, bilateral MG diagnostic mammo w CAD JUVENAL. The breast tissue is extremely dense which could obscure a lesion on mammography. Right upper outer quadrant far posterior depth group of 9mm calcifications has increased from the prior and appears pleomorphic on magnification views. Additional 1.2cm group of upper outer quadrant calcifications just superior, anterior and lateral to the index group. Biopsy recommended x 2. Other layering calcifications and scattered calcifications on the right. These results were verbally communicated with the patient and result sheet given to the patient on 12/23/18. ASSESSMENT: Suspicious, BI-RAD 4 RECOMMENDATION: Stereotactic core biopsy of the right breast. (x 2) Called Dr. Sam with mammographic findings and has scheduled an appointment for the patient for 12/25/18 at 3:[address] Walker. PRELIMINARY REPORT CALLED AND FAXED TO DR. WALKER ON 12/24/18.
== END | disposition home or self-care (01) ==
LOC: RADMAMWWP 12:55
PROVIDERS: ATTEND Family Medicine
DX: R92.8 Other abnormal and inconclusive findings on diagnostic imaging of breast (principal)
CPT/HCPCS: 77066; G0279; 77062

== ENCOUNTER → 2018-12-29 | Outpatient (CLI) | payer OTHER ==
[2018-12-29 13:32] VITALS: BP 87/57; PULSE 96; RESP 16
--- NOTE | 2018-12-31 15:39 | P.PAINPG ---
Subjective Progress Note Date: 12/29/18 This is a follow-up visit for this 38 years old female, with a history of neck pain and numbness and tingling in the upper extremity. She underwent 2 epidural steroid injections at C7[facility] on 11/17/2018 and 12/01/2018. She returns today for follow-up. She reports no significant benefit from either of these procedures. She reports that her pain is primarily in her bilateral neck, radiating to bilateral shoulders, left greater than right. She also reports pain as well as numbness and tingling in bilateral hands. She follows up with the well service floor worker and gets cortisone shots in her wrists [? Metacarpophalangeal joints] as well as steroid Dosepak, which significantly helped this. She also reports bilateral leg cramping. Physical exam: Vitals: Reviewed in EMR GENERAL: Well appearing, in no acute distress PSYCH: Mood and affect is appropriate. Awake, alert, and oriented SKIN: Skin color, texture, turgor normal, no rashes or lesions HEENT: Normocephalic, atraumatic. EOM intact CV: No pedal edema RESP: Respirations are unlabored, no audible wheezing GI: Abdomen non-distended MUSCULOSKELETAL: Bilateral upper and lower extremity strength is normal and symmetric. No atrophy or tone abnormalities are noted. Neck: Tenderness to palpation over the cervical paraspinous muscles bilaterally. Spurling negative, Axial Loading Test negative, Wren's sign negative. Cervical facet loading positive. Pain with neck flexion, extension, or lateral flexion. No obvious deformity or signs of trauma. Normal cervical lordotic curve and normal cervical spine range of motion, although painful. Extremities: Peripheral joint ROM is full and pain free without obvious instability or laxity in all four extremities. No edema or skin discolorations noted. Gait: Gait is normal NEUR: Bilateral upper extremity coordination and muscle stretch reflexes are physiologic and symmetric. No loss of sensation is noted. Imaging: Diagnostic study MRI of the cervical spine done 10/11/2018 [facility]= C5 6 posterior broad based disc bulging and facet joint hypertrophy Assessment and Plan Plan: Assessment and plan= cervical radiculopathy, cervical degenerative disc disease, cervical spondylosis and facet arthropathy Patient had no significant benefit from cervical epidural steroid injection 2. Given that her pain is primarily in the neck radiating to the shoulders, she would likely benefit from cervical facet workup. We will schedule bilateral C5, 6, 7 medial branch blocks 2. If significant benefit from this, will likely proceed to radiofrequency ablation. Continue current medications: Neurontin 600 mg every 6 hours, Motrin 800 mg every 8 hours when necessary, and continue Zanaflex 2 mg daily, as prescribed by her primary care. She was also instructed to take [id number] magnesium Glysinate 400 mg for leg cramping. Follow-up: For above-mentioned procedure Objective - Vital Signs Vital signs: Vital Signs Temp Pulse 96 12/29/18 13:41 Resp 16 12/29/18 13:41 BP 87/57 12/29/18 13:41 Pulse Ox 100 12/29/18 13:41 PQRS Measure Charge Sheet Measure #130: Documentation of Current Meds in Medical Chart: Patient's medications documented in chart Measure #226: Tobacco Use: Screen & Cessation Intervention: Pt screened for tobacco use AND intervention given Measure #111: Pneumonia Vaccination: Pneumococcal vaccine NOT administered or previously given Measure #47: Advance Care Plan: Advance care planning discussed & documented, pt chose/unable to give Measure #412: Opioid Treatment Agreement: No documentation of signed opioid treatment agreement Measure #317: Preventitive Care & Scrn High Bld Press & F/U: Normal blood pressure, f/u not required Measure #128: Body Mass Index (BMI) Screening & Follow-up: BMI documented within normal parameters Measure #131: Pain Assessment & Follow-up: Pain positive & plan documented, Follow-up scheduled Measure #431: Unhealthy Alcohol Use Preventative Care & Scrn: Patient not identified as an unhealthy alcohol user PQRS Narrative: Smoking Status Current every day smoker Blood Pressure 87/57 Pain Intensity [Generalized] 8 Scale Used Numeric (1 - 10) Hx Alcohol Use (MH) Yes: RARE Home Medications: Ambulatory Orders Dextroamphetamine/Amphetamine [Adderall] 20 mg PO BID 02/07/14 ALPRAZolam [Xanax] 1 mg PO TID PRN 08/11/18 Albuterol Inhaler [Ventolin Hfa Inhaler] 1 - 2 puff INHALATION RT-Q6H PRN 08/11/18 Budesonide-Formot 160-4.5 Mcg [Symbicort 160-4.5 Mcg Inhaler] 2 puff INHALATION BID 08/11/18 Ergocalciferol (Vitamin D2) [Vitamin D2] 50,000 unit PO Q30D 08/11/18 Fluticasone Nasal [place] [Flonase Nasal [place]] 1 spray EA NOSTRIL DAILY PRN 08/11/18 Gabapentin [Neurontin] 600 mg PO QID 08/11/18 Hydrochlorothiazide 12.5 mg PO DIRECTED PRN 08/11/18 Ibuprofen [Motrin] 800 mg PO QID 08/11/18 Ranitidine HCl [Zantac] 150 mg PO BID 08/11/18 rOPINIRole HCL 0.5 mg PO HS 08/11/18 tiZANidine HCL [Zanaflex] 2 mg PO DAILY 08/11/18 traZODone HCL 100 mg PO HS 08/11/18 FLUoxetine HCL [PROzac] 20 mg PO DAILY 09/11/18 Controlled Substance Measures - Controlled Substance Measures Is patient prescribed a controlled substance at discharge?: No
== END ==
LOC: PNWHC3 13:05
PROVIDERS: ATTEND Anesthesiology
DX: M50.10 Cervical disc disorder with radiculopathy, unspecified cervical region (principal); M47.22 Other spondylosis with radiculopathy, cervical region; M46.92 Unspecified inflammatory spondylopathy, cervical region; F17.200 Nicotine dependence, unspecified, uncomplicated; Z79.899 Other long term (current) drug therapy; Z79.1 Long term (current) use of non-steroidal anti-inflammatories (NSAID)
CPT/HCPCS: 99211

== ENCOUNTER → 2019-01-02 | Outpatient (CLI) | payer OTHER ==
--- NOTE | 2019-01-02 10:40 | FL ---
EXAMINATION TYPE: FL barium swallow DATE OF EXAM: 01/02/2019 CLINICAL HISTORY: Dysphagia. The patient describes food getting stuck within the region of the distal esophagus near the gastroesophageal junction. Patient also describes reflux and belching with loss o f 35 pounds in 4 months. TECHNIQUE: A double contrast esophagram is performed utilizing air and barium. A total of 2 minutes and 6 seconds of fluoroscopic time was utilized during procedure. 60 fluoroscopic images were saved during the examination. COMPARISON: None FINDINGS: The esophagus shows normal abnormal motility and emptying into the stomach on upright imagi ng with blunted secondary wave and tertiary contractions of the distal esophagus on upright imaging t hat do not persist on supine imaging nor right lateral decubitus. There appears to be spasm of the lo wer esophageal sphincter with no distinct structure seen. No esophageal wall ulceration is seen. No evidence of hiatal hernia noted. Very trace amount of gastroesophageal reflux was seen during real ti me performance of this study. IMPRESSION: 1. There appears to be lower esophageal sphincter spasm that is intermittent resulting in tertiary co ntractions of the distal esophagus intermittently and delayed bolus propulsion through the distal eso phagus and gastroesophageal junction. 2. Very trace amount of gastroesophageal reflux.
== END ==
LOC: RADUSWWP 08:05
PROVIDERS: ATTEND Family Medicine
DX: K22.4 Dyskinesia of esophagus (principal); Z88.2 Allergy status to sulfonamides
CPT/HCPCS: 74220

== ENCOUNTER → 2019-01-02 | Day surgery (SDC) | payer OTHER ==
[2019-01-02 08:39] VITALS: RESP 18; BMI 19.9
--- NOTE | 2019-01-02 09:50 | PCN ---
PROCEDURE NOTE DATE OF SERVICE: 01/02/2019 PREOPERATIVE DIAGNOSIS: Abnormal mammogram right breast. POSTOPERATIVE DIAGNOSIS: Same PROCEDURE: right stereotactic breast biopsy with marker placement ANESTHESIA: Local anesthetic. COMPLICATIONS: None. SPECIMEN: Breast tissue. SIGNS AND PROCEDURE: Magi is a 38-year-old female who had a mammogram done showing microcalcifications x2 in the right breast. The area was re-examined by the radiologist this morning. One of the areas was layering and consistent with milk of calcium. The other area was marked by the radiologist. The breast was then prepped. Local anesthetic was instilled into the skin and breast tissue. A skin justin was made. The needle was advanced to the appropriate depth. Pre fire films showed the needle to be in good position. The needle was then fired and multiple vacuum assisted automated cores are obtained. Specimen mammography did show multiple microcalcifications within the specimen. The needle is then withdrawn and a marker was placed through the catheter. The catheter portion is withdrawn from the breast and an another mammogram showed the marker to be in good placement. Pressure was held. A dressing was applied. She was given aftercare instructions. I will see her in the office in 1 week for pathology report. MMODL / IJN: [id number] / RUTH
[2019-01-02 10:08] VITALS: BP 103/70; PULSE 100; TEMP 98
--- NOTE | 2019-01-02 10:45 | MM ---
EXAMINATION TYPE: MG stereo VAD BX RT DATE OF EXAM: 01/02/2019 COMPARISON: 12/23/2018 diagnostic mammogram CLINICAL HISTORY: Indeterminate right breast calcifications for which stereotactic guided biopsy was recommended. TECHNIQUE: Stereotactic guided core biopsy of the right breast. FINDINGS: The procedure of stereotactic guided core biopsy was explained to the patient. Benefits, alternatives, and risks were discussed. An informed consent was then obtained. Preprocedural timeout was performed. The shortness pathway for biopsy was chosen to identify the 1.2 cm group of upper outer quadrant calcifications. Shortness pathway was lateral medial approach. I performed the localization, then surgeon, Dr. Walker performed the remainder of the procedure. A vacuum assisted biopsy gun was used to obtain multiple core samples. The patient tolerated the procedure well without any immediate complication. The patient was kept in the radiology department for short stay after the procedure and then discharged home in stable condition. Targeted calcifications are identified in specimen mammogram. The biopsy marker was placed by the surgeon free hand and appears to be located 1.4 cm anterior and 1.8 cm inferior to the postbiopsy change on the post biopsy mammogram. IMPRESSION: SUCCESSFUL, UNCOMPLICATED STEREOTACTIC GUIDED CORE BIOPSY OF A 1.2 CM GROUP OF CALCIFICATIONS IN THE UPPER QUADRANT OF THE RIGHT BREAST, FULL PATHOLOGY RESULTS TO FOLLOW. RECOMMENDATION FOR THE ADDITIONAL SITE OF SIMILAR-APPEARING CALCIFICATIONS IN THE UPPER-OUTER QUADRANT WILL BE MADE ON RADIOLOGIC/PATHOLOGIC CORRELATION. Pathology Results: Benign RIGHT BREAST, STEREOTACTIC CORE BIOPSY: Flat epithelial atypia (FEA/ADH) with associated calcifications arising in a background of fibrocystic changes including sclerosing adenosis with calcifications, cysts, fibrosis, columnar cell change and apocrine metaplasia. Recommendation Follow up mammogram of the right breast in 6 months. RUTH
== END ==
LOC: RADMAMWWP 08:11
PROVIDERS: ATTEND Surgery
DX: N60.11 Diffuse cystic mastopathy of right breast (principal); N60.21 Fibroadenosis of right breast; N60.81 Other benign mammary dysplasias of right breast
CPT/HCPCS: 74220; 88305

== ENCOUNTER 2019-01-23 09:43 | Day surgery (SDC) | payer OTHER ==
[2019-01-20 17:29] VITALS: BMI 19.2
[~2019-01-23 09:43] MED LIST changes: +DEXAMETHASONE SOD PHOSPHATE 10 MG/ML 1 ML VIAL IV ONE; +HYDROmorphone 0.5 MG/0.5 ML SYRINGE IVP PRN; +KETOROLAC 30 MG/ML 1 ML VIAL IVP SCH; +LIDOCAINE 1% 20 ML VIAL (10MG/ML) FOR IV START INTRADERMA PRN; +MIDAZOLAM 2 MG/2 ML VIAL IV PRN; +ONDANSETRON 4 MG/2 ML VIAL IVP ONE; +ONDANSETRON 4 MG/2 ML VIAL IVP PRN; +Pre Op ABX Message 1 EACH MISC MISCELLANE ONE; +SCOPOLAMINE 1.5MG/72HR PATCH TRANSDERM ONE
[2019-01-23] MEDS ORDERED: ALPRAZolam 0.5 MG TAB PO ONE (10:14)
[2019-01-23] MEDS ORDERED: LIDOCAINE 1% INJ 10MG/ML (20 ML MDV) SQ ONE (11:14)
[2019-01-23 11:37] VITALS: TEMP 98.4
[2019-01-23] MEDS ORDERED: PROPOFOL 10 MG/ML 20 ML VIAL IV ONE (12:02)
[2019-01-23] MEDS ORDERED: KETOROLAC 30 MG/ML 1 ML VIAL ONE (12:02)
[2019-01-23] MEDS ORDERED: LIDOCAINE 1% INJ 10MG/ML (20 ML MDV) ONE (12:02)
[2019-01-23] MEDS ORDERED: MIDAZOLAM 2 MG/2 ML VIAL ONE (12:02)
[2019-01-23] MEDS ORDERED: fentaNYL (PF) 50 MCG/ML 2 ML AMP ONE (12:02)
[2019-01-23] MEDS ORDERED: BUPIVACAIN-EPI 0.25%-1:200,000 30 ML VIAL SQ ONE ×2 (12:16)
--- NOTE | 2019-01-23 12:43 | P.OP ---
Date of Procedure: 01/23/19 Preoperative Diagnosis: Flat epithelial atypia right breast Postoperative Diagnosis: Flat epithelial atypia right breast Procedure(s) Performed: Needle localized breast biopsy Anesthesia: MAC Surgeon: Radha Walker Estimated Blood Loss (ml): 5 Pathology: other (Right breast biopsy) Condition: stable Disposition: PACU Indications for Procedure: The patient is a 38-year-old female who had a stereotactic breast biopsy done because of microcalcifications. There was flat epithelial atypical cells per which an excisional biopsy was recommended Description of Procedure: The patient is first taken to the [facility] where the area of concern as marked and a localizing wire was placed. She is then taken the OR where she is prepped and draped in the usual sterile manner under IV sedation. Local anesthetic is instilled in the skin and breast tissue. A small incision was made. Dissection was carried down to the localizing wire. Localizing wire is brought through the incision and the breast tissue around the end of the wire was sharply excised. This was sent for mammography and showed that the marker an area of calcifications had been excised. Small bleeding points were then controlled with electrocautery. The skin was closed with 4-0 Vicryl in a subcuticular manner. Steri-Strips and dressings were applied. She tolerated the procedure without difficulty and was taken recovery room in satisfactory condition. According to or personnel, all counts were correct. Plan - Discharge Summary Discharge Rx Participant: Yes New Discharge Prescriptions: New traMADol HCl [Ultram] 50 mg PO Q4HR PRN 3 Days #18 tab PRN Reason: Pain No Action Dextroamphetamine/Amphetamine [Adderall] 20 mg PO BID Hydrochlorothiazide 12.5 mg PO DIRECTED PRN PRN Reason: ankle, leg swelling Fluticasone Nasal [place] [Flonase Nasal [place]] 1 spray EA NOSTRIL DAILY PRN PRN Reason: sinus congestion Gabapentin [Neurontin] 600 mg PO QID ALPRAZolam [Xanax] 1 mg PO TID PRN PRN Reason: Anxiety tiZANidine HCL [Zanaflex] 2 mg PO DAILY rOPINIRole HCL 0.5 mg PO HS traZODone HCL 100 mg PO HS Budesonide-Formot 160-4.5 Mcg [Symbicort 160-4.5 Mcg Inhaler] 2 puff INHALATION BID Albuterol Inhaler [Ventolin Hfa Inhaler] 1 - 2 puff INHALATION RT-Q6H PRN PRN Reason: ASTHMA, COPD Ergocalciferol (Vitamin D2) [Vitamin D2] 50,000 unit PO Q30D Ibuprofen [Motrin] 800 mg PO QID FLUoxetine HCL [PROzac] 20 mg PO DAILY Glucosamine/Chondr Marley A Sod [Osteo Bi-Flex Caplet] 2 each PO DAILY Ferrous Sulfate [Feosol] 325 mg PO DAILY Discharge Medication List Dextroamphetamine/Amphetamine [Adderall] 20 mg PO BID 02/07/14 [History] ALPRAZolam [Xanax] 1 mg PO TID PRN 08/11/18 [History] Albuterol Inhaler [Ventolin Hfa Inhaler] 1 - 2 puff INHALATION RT-Q6H PRN 08/11/18 [History] Budesonide-Formot 160-4.5 Mcg [Symbicort 160-4.5 Mcg Inhaler] 2 puff INHALATION BID 08/11/18 [History] Ergocalciferol (Vitamin D2) [Vitamin D2] 50,000 unit PO Q30D 08/11/18 [History] Fluticasone Nasal [place] [Flonase Nasal [place]] 1 spray EA NOSTRIL DAILY PRN 08/11/18 [History] Gabapentin [Neurontin] 600 mg PO QID 08/11/18 [History] Hydrochlorothiazide 12.5 mg PO DIRECTED PRN 08/11/18 [History] Ibuprofen [Motrin] 800 mg PO QID 08/11/18 [History] rOPINIRole HCL 0.5 mg PO HS 08/11/18 [History] tiZANidine HCL [Zanaflex] 2 mg PO DAILY 08/11/18 [History] traZODone HCL 100 mg PO HS 08/11/18 [History] FLUoxetine HCL [PROzac] 20 mg PO DAILY 09/11/18 [History] Ferrous Sulfate [Feosol] 325 mg PO DAILY 01/20/19 [History] Glucosamine/Chondr Marley A Sod [Osteo Bi-Flex Caplet] 2 each PO DAILY 01/20/19 [History] traMADol HCl [Ultram] 50 mg PO Q4HR PRN 3 Days #18 tab 01/23/19 [Rx] Follow up Appointment(s)/Referral(s): Radha Walker DO [Doctor of Osteopathic Medicine] - 1 Week Activity/Diet/Wound Care/Special Instructions: Wear a well supporting bra. Keep the dressing on until Saturday then it may be removed and you may shower. Ice to the incision for 24 hours. Expect some bruising. Call if questions or concerns. You may take Tylenol or Motrin instead of the tramadol. Discharge Disposition: HOME SELF-CARE
--- NOTE | 2019-01-23 12:45 | MM ---
EXAMINATION TYPE: MG pre op needle loc RT, MG surgical specimen RT DATE OF EXAM: 01/23/2019 COMPARISON: Right breast biopsy dated 12/23/2018 CLINICAL HISTORY: Right breast flat epithelial atypia/adh for which needle localization was requested. TECHNIQUE: Needle localization with wire placement and surgical excision of area of concern in the right breast. FINDINGS: The procedure of needle localization with wire placement and than surgical excision was explained to the patient. Benefits, alternatives, and risks were discussed. An informed consent was then obtained. Preprocedural timeout was performed. The shortest pathway for procedure was chosen. Shortest pathway was lateral to medial approach. The overlying skin was prepped and draped in usual sterile fashion. Lidocaine buffered with bicarbonate was used as anesthetic into the skin and subcutaneous tissue up to the level of area of concern. A 5 cm needle was used. It was placed via a lateral to medial approach under mammographic guidance. Subsequent 90 degrees mammogram show the needle to be in satisfactory position relative to the targeted area. At this point, wire was placed and the needle was withdrawn. The wire was fixed to patient's skin. Images were marked for surgeon. The patient tolerated the procedure well without any immediate complication. The patient was kept in the radiology department for short stay after the procedure and then taken to surgery for surgical excision. Targeted biopsy marker representing the biopsy-proven high-risk lesions and wire are identified in specimen mammogram. The patient was kept in hospital for short stay after the procedure and then discharged home in stable condition. Findings were relayed to the OR by the visual merchandise manager at 1236 on 01/23/2019. IMPRESSION: Successful, uncomplicated needle localization with wire placement and surgical excision of a biopsy marker representing the biopsy-proven high risk lesions in the right breast, full pathology results to follow. Pathology Results: High Risk RIGHT BREAST, NEEDLE LOCALIZATION EXCISION: Residual flat epithelial atypia (FEA) with associated calcifications adjacent to previous biopsy site, margins negative for atypia. Background fibrocystic changes including sclerosing adenosis with calcifications, fibrosis, cysts, and columnar cell change. Recommendation Follow up mammogram of the right breast in 6 months. FABBYD
[2019-01-23 13:28] VITALS: RESP 16
[2019-01-23 13:35] VITALS: BP 92/61; PULSE 77
== END 2019-01-23 13:54 | disposition home or self-care (01) ==
LOC: OR 09:43
PROVIDERS: ATTEND Surgery
DX: D24.1 Benign neoplasm of right breast (principal); N60.11 Diffuse cystic mastopathy of right breast
CPT/HCPCS: 81025; 88307; 76098; 19281; 19125; J2250; J1100; J2405; J2001; J3010; J1885; J2704

== ENCOUNTER 2019-02-04 08:30 | Day surgery (SDC) | payer OTHER ==
[2019-02-02 11:19] VITALS: BMI 19.2
[2019-02-04 08:49] VITALS: RESP 16; TEMP 98
[2019-02-04] MEDS ORDERED: LACTATED RINGERS 1,000 ML IV ONE (08:55)
[2019-02-04] MEDS ORDERED: LIDOCAINE 1% 20 ML VIAL (10MG/ML) FOR IV START INTRADERMA ONE (08:55)
[2019-02-04] MEDS ORDERED: IV FLUID CONTINUATION 1,000 ML IV ONE (09:37)
--- NOTE | 2019-02-04 09:39 | P.PCN ---
Date of Procedure: 02/04/19 Procedure(s) Performed: PREOPERATIVE DIAGNOSIS: Cervical Spondylosis with Facet Arthropathy.without myelopathy POSTOPERATIVE DIAGNOSIS: Cervical Spondylosis, Facet Arthropathy. Without myelopathy PROCEDURES: Bilateral Diagnostic C5, C6, C7 medial branch blocks for facets C5-6 and C6-7, with fluoroscopic guidance ANESTHESIA: Local with 1% lidocaine; IV sedation with Versed. Sedation time 20 minutes Fluoroscopy was used for the procedure and images were saved in the radiology portion of the chart. EBL: Minimal PROCEDURE INDICATION: The patient with neck pain secondary to cervical arthropathy unresponsive to more conservative treatments. PROCEDURE DESCRIPTION / TECHNIQUE: The patient was seen and identified in the preoperative area. Risks, benefits, complications, and alternatives were discussed with the patient, the patient agreed to proceed with the procedure and signed the consent. IV was started. Vital signs remained stable throughout the procedure. Patient was taken to the OR and time out was completed. The patient was placed in the prone position on the procedure table. A pillow was placed under the patients chest to increase the cervical interlaminar space. The cervical area was prepped and draped in the usual sterile fashion. A timeout was performed. Vital signs were closely monitored during the procedure. Conscious sedation was used during the procedure to decrease patients anxiety. Using AP and cross-table lateral fluoroscopy, the centroid of the trapezoid of the first level was identified, marked, and localized with 1% lidocaine 0.2 ml at each level for skin and subcutaneous infiltration . Subsequently, a 25 G 3.5" Quinke spinal needle was advanced guided by fluoroscopy to the centroid of the trapezoid . [place] tip position was confirmed using lateral fluoroscopy.0.2 mL of Isovue-200 was injected at each level, revealing no intravascular uptake. Subsequently, 0.5 mL of 4% lidocaine was injected at each level. COMPLICATIONS: No acute complications. Comments: Patient reported significant benefit in the postoperative period DISPOSITION / PLANS: The patient was placed in a supine position and transferred to the recovery area in a stable condition for observation and was discharged from the recovery room after meeting discharge criteria. Home discharge instructions given to the patient by the staff. The patient will follow up for repeat procedure in 2 weeks.
[2019-02-04 09:49] VITALS: BP 102/64; PULSE 81
--- NOTE | 2019-02-04 10:06 | FL ---
EXAMINATION TYPE: FL guided pain mgmt statistic DATE OF EXAM: 02/04/2019 CLINICAL HISTORY: Neck pain. TECHNIQUE: Fluoroscopy. COMPARISON: None. FINDINGS: Fluoroscopic guidance was provided during pain relief procedure performed by Dr. Covarrubias . A total of 11 seconds of fluoroscopic time was utilized during the procedure and 7 spot images are acqu ired. Images acquired shows needle localization at several levels in the mid to lower cervical spine from posterior approach. IMPRESSION: As Above.
== END 2019-02-04 10:08 | disposition home or self-care (01) ==
LOC: ORPAIN 08:30
PROVIDERS: ATTEND Anesthesiology
DX: M47.812 Spondylosis without myelopathy or radiculopathy, cervical region (principal); Z88.2 Allergy status to sulfonamides; Z88.7 Allergy status to serum and vaccine
CPT/HCPCS: 81025; 64490; 64491; J2250; Q9966; 99152

== ENCOUNTER → 2019-02-12 | Outpatient (CLI) | payer OTHER ==
--- NOTE | 2019-02-13 09:46 | CT ---
EXAMINATION TYPE: CT mastoid wo con DATE OF EXAM: 02/12/2019 COMPARISON: CT 01/02/2016 HISTORY: Right ear pain and dizziness. CT DLP: 150 mGycm. Automated Exposure Control for Dose Reduction was Utilized. TECHNIQUE: CT scan of internal auditory canal is performed without contrast, thin cut axial images ar e obtained, coronal reformatted images are also reviewed. FINDINGS: The external auditory canals are patent bilaterally. Mastoid air cells show no evidence of abnormal opacification bilaterally. The middle ear ossicles are symmetric and unremarkable. There is no evidence of suspicious surrounding soft tissue density to suggest cholesteatoma. The scutum is preserved bilaterally. The cochlea and the semicircular canals are symmetric and unremarkable. Ves tibular aqueduct and internal carotid canal appear unremarkable. Temporomandibular joints are maintained bilaterally. Visualized paranasal sinuses are remarkable for minimal inflammatory change, possible polyp in the right maxillary sinus. Visualized portion brain p arenchyma is felt within normal limits. IMPRESSION: No significant abnormality seen to account for patient's symptoms.
== END | disposition home or self-care (01) ==
LOC: RADCTMAIN 17:25
PROVIDERS: ATTEND Otolaryngology
DX: H60.61 Unspecified chronic otitis externa, right ear (principal)
CPT/HCPCS: 70486

== ENCOUNTER 2019-02-18 08:39 | Day surgery (SDC) | payer OTHER ==
[2019-02-18 09:12] VITALS: TEMP 98.4
[2019-02-18] MEDS ORDERED: LACTATED RINGERS 1,000 ML IV SCH (09:21)
[2019-02-18] MEDS ORDERED: LIDOCAINE 1% 20 ML VIAL (10MG/ML) FOR IV START INTRADERMA ONE (09:22)
[2019-02-18] MEDS ORDERED: LACTATED RINGERS 1,000 ML IV ONE (09:22)
--- NOTE | 2019-02-18 10:05 | P.PCN ---
Date of Procedure: 02/18/19 Procedure(s) Performed: PREOPERATIVE DIAGNOSIS: Cervical Spondylosis with Facet Arthropathy.without myelopathy POSTOPERATIVE DIAGNOSIS: Cervical Spondylosis, Facet Arthropathy. Without myelopathy PROCEDURES: Bilateral Diagnostic C5, C6, C7 medial branch blocks for facets C5- 6 and C6-7, with fluoroscopic guidance ANESTHESIA: Local with 1% lidocaine; IV sedation with Versed 2 mg , and fentanyl 50 g Fluoroscopy was used for the procedure and images were saved in the radiology portion of the chart. EBL: Minimal PROCEDURE INDICATION: The patient with neck pain secondary to cervical arthropathy unresponsive to more conservative treatments. PROCEDURE DESCRIPTION / TECHNIQUE: The patient was seen and identified in the preoperative area. Risks, benefits, complications, and alternatives were discussed with the patient, the patient agreed to proceed with the procedure and signed the consent. IV was started. Vital signs remained stable throughout the procedure. Patient was taken to the OR and time out was completed. The patient was placed in the prone position on the procedure table. A pillow was placed under the patients chest to increase the cervical interlaminar space. The cervical area was prepped and draped in the usual sterile fashion. Critical pause was taken. Vital signs were closely monitored during the procedure. Conscious sedation was used during the procedure to decrease patients anxiety. Using cross-table lateral fluoroscopy, the centroid of the trapezoid of right , C5 C6, and C7 was identified, marked, and localized with 1% lidocaine 1 ml at each level for skin and Sub Q infiltrations . Subsequently, a 25 G 3-1/2 inches long , 3 spinal needle was advanced guided by fluoroscopy to the centroid of the trapezoid of Right C5, C6 ,C7 . [place] tip position was confirmed at the centroid of the trapezoids of Right C5 ,C6, C7 with anteroposterior fluoroscopy. Subsequently, 1,5 ml of preservative-free Ropivacaine 0.5% mixed with Depo-Medrol 20 mg and half ml of the mixture was injected after negative aspiration for blood and CSF. [place] was then removed intact the same procedure was repeated at the left C5, C6 , and C7 levels. COMPLICATIONS: No acute complications. DISPOSITION / PLANS: The patient was placed in a supine position and transferred to the recovery area in a stable condition for observation and was discharged from the recovery room after meeting discharge criteria. Home discharge instructions given to the patient by the staff. The patient was reexamined prior to discharge. The patient will schedule a follow up in the clinic in 2-4 weeks.
[2019-02-18] MEDS ORDERED: IV FLUID CONTINUATION 1,000 ML IV ONE (10:14)
--- NOTE | 2019-02-18 10:17 | FL ---
EXAMINATION TYPE: FL guided pain mgmt statistic DATE OF EXAM: 02/18/2019 CLINICAL HISTORY: Neck pain. TECHNIQUE: Fluoroscopy. COMPARISON: None. FINDINGS: Fluoroscopic guidance was provided during pain relief procedure performed by Dr. Gonzalez . A total of 16 seconds of fluoroscopic time was utilized during the procedure and four spot images are acquired. Images acquired shows needle localization at several levels off the midline in the jonh ateral cervical spine. IMPRESSION: As Above.
[2019-02-18 10:19] VITALS: BP 100/68; PULSE 66; RESP 18
== END 2019-02-18 10:34 | disposition home or self-care (01) ==
LOC: ORPAIN 08:39
PROVIDERS: ATTEND Specialist
DX: M47.812 Spondylosis without myelopathy or radiculopathy, cervical region (principal); J44.9 Chronic obstructive pulmonary disease, unspecified; Z88.2 Allergy status to sulfonamides; Z88.7 Allergy status to serum and vaccine
CPT/HCPCS: 81025; 64490; 64491; J2250; J1030; J3010; 99152

== ENCOUNTER 2019-08-10 23:04 | Emergency (ER) | payer OTHER ==
[2019-08-10 23:11] VITALS: RESP 16
[2019-08-11] MEDS ORDERED: valACYclovir 500 MG TAB PO STA (00:03)
[2019-08-11] MEDS ORDERED: AZITHROMYCIN 250 MG TAB PO STA (00:03)
--- NOTE | 2019-08-11 00:17 | ED ---
Female Urogenital HPI - General Chief complaint: Urogenital Stated complaint: Abcess/Fever Time Seen by Provider: 08/10/19 23:19 Source: patient Mode of arrival: ambulatory Limitations: no limitations - History of Present Illness Initial comments: This patient is a 39-year-old woman who presents to be evaluated for a lesion to the left labia. The patient states that she had noticed what looked initially like a pimple approximately 4 weeks ago. Was located on the left labia and she saw her primary physician Dr. Sam, the clinic. She states that she performed an I and D and states that he obtain material that looked like what comes out of a blackhead. The patient also was placed on course of Bactroban ointment and also oral antibiotic that didn't cause her to have yeast infection, so she was not able to complete the full course of that treatment. She has been using the mupirocin ointment but does note that it causes some burning to the area. The patient states that she had gone to follow-up with the customer service manager today but that they would not see her in clinic because she had a fever at that time to above 99. The patient notes she has been having some left inguinal nodes and fever. No change in urination. No vaginal discharge. MD Complaint: other Onset/Timin -: week(s) Location: labia Radiation: non-radiating Severity: moderate Quality: sharp, burning Consistency: constant Worsens with: none Patient : No - Related Data Home Medications Medication Instructions Recorded Confirmed Dextroamphetamine/Amphetamine 20 mg PO BID 02/07/14 03/03/19 [Adderall] ALPRAZolam [Xanax] 1 mg PO TID PRN 08/11/18 03/03/19 Albuterol Inhaler [Ventolin Hfa 1 - 2 puff INHALATION Q6HR PRN 08/11/18 03/03/19 Inhaler] Budesonide-Formot 160-4.5 Mcg 2 puff INHALATION BID 08/11/18 03/03/19 [Symbicort 160-4.5 Mcg Inhaler] Ergocalciferol (Vitamin D2) 50,000 unit PO Q30D 08/11/18 03/03/19 [Vitamin D2] Fluticasone Nasal [place] [Flonase 1 spray EA NOSTRIL DAILY PRN 08/11/18 03/03/19 Nasal [place]] Gabapentin [Neurontin] 600 mg PO QID 08/11/18 03/03/19 Hydrochlorothiazide 12.5 mg PO DIRECTED PRN 08/11/18 03/03/19 Ibuprofen [Motrin] 800 mg PO QID 08/11/18 03/03/19 rOPINIRole HCL [Requip] 0.5 mg PO HS 08/11/18 03/03/19 tiZANidine HCL [Zanaflex] 2 mg PO DAILY 08/11/18 03/03/19 traZODone HCL 100 mg PO HS 08/11/18 03/03/19 FLUoxetine HCL [PROzac] 20 mg PO DAILY 09/11/18 03/03/19 Ferrous Sulfate [Feosol] 325 mg PO DAILY 01/20/19 03/03/19 Glucosamine/Chondr [place] A Sod [Osteo 2 each PO DAILY 01/20/19 03/03/19 Bi-Flex Caplet] methylPREDNISolone Dose Pack 4 mg PO DIRECTED 03/03/19 03/03/19 [Medrol Dose Pack] Previous Rx's Medication Instructions Recorded traMADol HCl [Ultram] 50 mg PO Q4HR PRN 3 Days #18 tab 01/23/19 Clindamycin [Cleocin] 150 mg PO Q6H #28 capsule 08/11/19 Fluconazole [Diflucan] 150 mg PO ONCE #1 tab 08/11/19 valACYclovir [Valtrex] 500 mg PO BID #20 tab 08/11/19 Allergies Allergy/AdvReac Type Severity Reaction Status Date / Time sulfamethoxazole Allergy Rash/Hives, Verified 08/10/19 23:11 [From Bactrim] SEIZURE trimethoprim [From Bactrim] Allergy Rash/Hives Verified 08/10/19 23:11 tdap Allergy Anaphylaxis Uncoded 08/10/19 23:11 Review of Systems ROS Statement: Those systems with pertinent positive or pertinent negative responses have been documented in the HPI. ROS Other: All systems not noted in ROS Statement are negative. Constitutional: Reports: fever Respiratory: Reports: cough (Mild). Denies: dyspnea, wheezes Cardiovascular: Denies: chest pain, palpitations Gastrointestinal: Denies: abdominal pain, nausea, vomiting, diarrhea Genitourinary: Denies: dysuria, discharge Musculoskeletal: Denies: back pain Skin: Reports: as per HPI, lesions Past Medical History Past Medical History: Asthma, COPD, Fibromyalgia, GERD/Reflux, Osteoarthritis (OA), Respiratory Disorder, Seizure Disorder Additional Past Medical History / Comment(s): HX PANCREATITIS. RESTLESS LEG. "INFLAMMED LUNG AND LIVER 10/2018." ANEMIA. Low Blood Pressure. 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 History of Any Multi-Drug Resistant Organisms: None Reported Past Surgical History: Appendectomy, Breast Surgery, Section, Cholecystectomy, Orthopedic Surgery, Tonsillectomy, Tubal Ligation, Uterine Ablation Additional Past Surgical History / Comment(s): PANNICULECTOMY, Left collarbone s urgery - plate placement, bone graft; bilateral carpal tunnel; benign right breast biopsy. Left C6 Transforaminal Epidural steroid injection Jan 2017 at [facility]. C5/6 nerve Root block Jan 2017 at [facility]; PAIN CLINIC PROCEDURES, last 12/01/18. Colonoscopy, EGD. Past Anesthesia/Blood Transfusion Reactions: No Reported Reaction Past Psychological History: ADD/ADHD, Anxiety, Bipolar, Depression Smoking Status: Current every day smoker Past Alcohol Use History: Rare Past Drug Use History: Marijuana - Past Family History Mother Family Medical History: Blood Disorder, Deep Vein Thrombosis (DVT) Additional Family Medical History / Comment(s): Leiden factor 5, General Exam Limitations: no limitations General appearance: alert, in no apparent distress Respiratory exam: Present: normal lung sounds bilaterally. Absent: respiratory distress, wheezes, rales, rhonchi, stridor Cardiovascular Exam: Present: regular rate, normal rhythm, normal heart sounds. Absent: systolic murmur, diastolic murmur, rubs, gallop GI/Abdominal exam: Present: soft. Absent: tenderness, guarding, rebound External exam: Present: lesions (The patient does have an approximately 1 cm ulceration to the left labia. There is no purulent drainage. There is no depth to the lesion.), other (There is some mild left inguinal adenopathy) Skin exam: Present: warm, dry, normal color, other (Left labial ulcer as above) Course Vital Signs 08/10/19 23:05 Temperature 98.4 F Pulse Rate 125 H Respiratory 16 Rate Blood Pressure 90/64 O2 Sat by Pulse 97 Oximetry Medical Decision Making - Medical Decision Making Patient's 39-year-old woman with going on for weeks of a left labial ulcer. Given the fever inguinal nodes and ulceration, did send a viral swab. In addition patient given empiric treatment against other forms painful ulceration including chancroid. Patient to follow-up to ensure resolution. They are counseled against intercourse pending results of the swabs. Disposition Clinical Impression: Genital labial ulcer Disposition: HOME SELF-CARE Condition: Good Instructions (If sedation given, give patient instructions): Wound Infection (DC) Prescriptions: Clindamycin [Cleocin] 150 mg PO Q6H #28 capsule Fluconazole [Diflucan] 150 mg PO ONCE #1 tab valACYclovir [Valtrex] 500 mg PO BID #20 tab Is patient prescribed a controlled substance at d/c from ED?: No Referrals: Demar Sam MD [Primary Care Provider] - 1-2 days
[2019-08-11 00:34] VITALS: BP 101/80; PULSE 99; TEMP 98.9
== END 2019-08-11 00:34 | disposition home or self-care (01) ==
LOC: EC 23:04
DX: N76.6 Ulceration of vulva (principal); R59.0 Localized enlarged lymph nodes; R50.9 Fever, unspecified; J44.9 Chronic obstructive pulmonary disease, unspecified; M79.7 Fibromyalgia; M19.90 Unspecified osteoarthritis, unspecified site; G40.909 Epilepsy, unspecified, not intractable, without status epilepticus; G25.81 Restless legs syndrome; D64.9 Anemia, unspecified; F31.9 Bipolar disorder, unspecified; F41.9 Anxiety disorder, unspecified; F90.9 Attention-deficit hyperactivity disorder, unspecified type; F17.200 Nicotine dependence, unspecified, uncomplicated; Z88.2 Allergy status to sulfonamides; Z88.7 Allergy status to serum and vaccine; Z79.1 Long term (current) use of non-steroidal anti-inflammatories (NSAID); Z79.51 Long term (current) use of inhaled steroids; Z79.52 Long term (current) use of systemic steroids; Z79.899 Other long term (current) drug therapy; Z96.698 Presence of other orthopedic joint implants; Z98.890 Other specified postprocedural states
CPT/HCPCS: 87070; 87205; 87529; 99283

== ENCOUNTER → 2019-10-05 | Outpatient (CLI) | payer OTHER ==
--- NOTE | 2019-10-06 08:08 | MM ---
Reason for exam: follow-up at short interval from prior study. Last mammogram was performed 9 months ago. History: Patient has history of high-risk lesion on a previous biopsy at age 39. Family history of breast cancer in maternal cousin at age 30. High risk MG pre op needle loc RT of the right breast, January 23, 2019. Benign MG stereo VAD BX RT of the right breast, January 02, 2019. Benign excisional biopsy of the right breast, 2018. Physical Findings: Nurse did not find any significant physical abnormalities on exam. MG 3D Diag Mammo W/Cad RT CC and MLO view(s) were taken of the right breast. Prior study comparison: December 23, 2018, bilateral MG 3d diag mammo w/cad JUVENAL. September 24, 2017, bilateral MG diagnostic mammo w CAD JUVENAL. The breast tissue is heterogeneously dense. This may lower the sensitivity of mammography. Stable calcifications noted. Post biopsy changes right breast. No significant new findings when compared with previous films. These results were verbally communicated with the patient and result sheet given to the patient on 10/05/19. ASSESSMENT: Benign, BI-RAD 2 RECOMMENDATION: Follow-up diagnostic mammogram of both breasts in 6 months.
== END | disposition home or self-care (01) ==
LOC: RADMAMWWP 15:22
PROVIDERS: ATTEND Family Medicine
DX: R92.8 Other abnormal and inconclusive findings on diagnostic imaging of breast (principal)
CPT/HCPCS: 77065; G0279; 77061

== ENCOUNTER 2019-11-21 08:40 | Emergency (ER) | payer OTHER ==
[2019-11-21 08:47] VITALS: BP 136/87; PULSE 100; RESP 18; TEMP 98.3
[2019-11-21] MEDS ORDERED: HYDROcodone/APAP 5-325MG 1 EACH TAB PO STA (09:25)
--- NOTE | 2019-11-21 09:27 | ED ---
General Adult HPI - General Chief complaint: Extremity Injury, Lower Stated complaint: leg pain Time Seen by Provider: 11/21/19 08:55 Source: patient, RN notes reviewed, old records reviewed Mode of arrival: ambulatory Limitations: no limitations - History of Present Illness Initial comments: Patient is a 39-year-old female presents return today with right parks pain over the medial tibia for the past 3 days. She reports this feels similar to a parks splint. Patient states that she has been trying to stretch and take Motrin and Tylenol for pain relief and has been becoming worse. Patient states that pain is worse with dorsiflexion of the foot. She did have recent right thumb surgery. She denies any calf pain. She denies any known fall or trauma. - Related Data Home Medications Medication Instructions Recorded Confirmed Dextroamphetamine/Amphetamine 20 mg PO BID 02/07/14 03/03/19 [Adderall] ALPRAZolam [Xanax] 1 mg PO TID PRN 08/11/18 03/03/19 Albuterol Inhaler (Mhu) [Ventolin 1 - 2 puff INHALATION Q6HR PRN 08/11/18 03/03/19 Hfa Inhaler] Budesonide-Formot 160-4.5 Mcg 2 puff INHALATION BID 08/11/18 03/03/19 [Symbicort 160-4.5 Mcg Inhaler] Ergocalciferol (Vitamin D2) 50,000 unit PO Q30D 08/11/18 03/03/19 [Vitamin D2] Fluticasone Nasal [place] [Flonase 1 spray EA NOSTRIL DAILY PRN 08/11/18 03/03/19 Nasal [place]] Gabapentin [Neurontin] 600 mg PO QID 08/11/18 03/03/19 Hydrochlorothiazide 12.5 mg PO DIRECTED PRN 08/11/18 03/03/19 Ibuprofen [Motrin] 800 mg PO QID 08/11/18 03/03/19 rOPINIRole HCL [Requip] 0.5 mg PO HS 08/11/18 03/03/19 tiZANidine HCL [Zanaflex] 2 mg PO DAILY 08/11/18 03/03/19 traZODone HCL 100 mg PO HS 08/11/18 03/03/19 FLUoxetine HCL [PROzac] 20 mg PO DAILY 09/11/18 03/03/19 Ferrous Sulfate [Feosol] 325 mg PO DAILY 01/20/19 03/03/19 Glucosamine/Chondr Marley A Sod [Osteo 2 each PO DAILY 01/20/19 03/03/19 Bi-Flex Caplet] methylPREDNISolone Dose Pack 4 mg PO DIRECTED 03/03/19 03/03/19 [Medrol Dose Pack] Previous Rx's Medication Instructions Recorded traMADol HCl [Ultram] 50 mg PO Q4HR PRN 3 Days #18 tab 01/23/19 Clindamycin [Cleocin] 150 mg PO Q6H #28 capsule 08/11/19 Fluconazole [Diflucan] 150 mg PO ONCE #1 tab 08/11/19 valACYclovir [Valtrex] 500 mg PO BID #20 tab 08/11/19 Ibuprofen [Motrin] 600 mg PO Q8HR PRN #20 tab 11/21/19 Allergies Allergy/AdvReac Type Severity Reaction Status Date / Time sulfamethoxazole Allergy Rash/Hives, Verified 08/10/19 23:11 [From Bactrim] SEIZURE trimethoprim [From Bactrim] Allergy Rash/Hives Verified 08/10/19 23:11 tdap Allergy Anaphylaxis Uncoded 08/10/19 23:11 Review of Systems ROS Statement: Those systems with pertinent positive or pertinent negative responses have been documented in the HPI. ROS Other: All systems not noted in ROS Statement are negative. Past Medical History Past Medical History: Asthma, COPD, Fibromyalgia, GERD/Reflux, Osteoarthritis (OA), Respiratory Disorder, Seizure Disorder Additional Past Medical History / Comment(s): HX PANCREATITIS. RESTLESS LEG. "INFLAMMED LUNG AND LIVER 10/2018." ANEMIA. Low Blood Pressure. 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 History of Any Multi-Drug Resistant Organisms: None Reported Past Surgical History: Appendectomy, Breast Surgery, Section, Cholecystectomy, Orthopedic Surgery, Tonsillectomy, Tubal Ligation, Uterine Ablation Additional Past Surgical History / Comment(s): PANNICULECTOMY, Left collarbone surgery - plate placement, bone graft; bilateral carpal tunnel; benign right breast biopsy. Left C6 Transforaminal Epidural steroid injection Jan 2017 at [facility]. C5/6 nerve Root block Jan 2017 at [facility]; PAIN CLINIC PROCEDURES, last 12/01/18. Colonoscopy, EGD. L thumb Past Anesthesia/Blood Transfusion Reactions: No Reported Reaction Past Psychological History: ADD/ADHD, Anxiety, Bipolar, Depression Smoking Status: Current every day smoker Past Alcohol Use History: Rare Past Drug Use History: Marijuana - Past Family History Mother Family Medical History: Blood Disorder, Deep Vein Thrombosis (DVT) Additional Family Medical History / Comment(s): Leiden factor 5, General Exam - General Exam Comments Initial Comments: Alert and oriented 39-year-old female. No significant distress. Limitations: no limitations General appearance: alert, in no apparent distress Head exam: Present: atraumatic, normocephalic, normal inspection Eye exam: Present: normal appearance, PERRL, EOMI. Absent: scleral icterus, conjunctival injection, periorbital swelling ENT exam: Present: normal exam, mucous membranes moist Neck exam: Present: normal inspection. Absent: tenderness, meningismus, lymphadenopathy Respiratory exam: Present: normal lung sounds bilaterally. Absent: respiratory distress, wheezes, rales, rhonchi, stridor Cardiovascular Exam: Present: regular rate, normal rhythm, normal heart sounds. Absent: systolic murmur, diastolic murmur, rubs, gallop, clicks GI/Abdominal exam: Present: soft, normal bowel sounds. Absent: distended, tenderness, guarding, rebound, rigid Extremities exam: Present: normal inspection, full ROM, normal capillary refill. Absent: tenderness, pedal edema, joint swelling, calf tenderness Left Knee exam: Present: normal inspection, full ROM, tenderness Lower Leg exam: Present: full ROM, tenderness (Patient has erythematous vesicular painful nodule lesions over the right anterior parks. No Tenderness.). Absent: normal inspection Ankle exam: Present: normal inspection, full ROM Back exam: Present: normal inspection Neurological exam: Present: alert, oriented X3, CN II-XII intact Course Vital Signs 11/21/19 08:43 Temperature 98.3 F Pulse Rate 100 Respiratory 18 Rate Blood Pressure 136/87 O2 Sat by Pulse 100 Oximetry Medical Decision Making - Medical Decision Making 39-year-old female presents return today for concerns for abnormal rash on her right parks and pain over the distal tibia and mid tibia. Patient has circular painful leg nodular lesions on the anterior parks. tenderness. rash is concerning for erythema nodosum. patient has no other complaints at this time and some symptoms for 3 days with rash starting today. i discussed with the patient treatment anti-inflammatory medication and advised close follow-up. She denies any medication changes or trauma. [facility] fifth of x-ray showed possible lesion over the proximal tibia the Patient has no tenderness at this site. Likely encochondroma. I discussed following up with primary care physician and close monitoring. Discussed return parameters. - Radiology Data Radiology results: report reviewed Tib-fib x-ray shows no acute changes. Some lucency at the metaphyseal medial cortex. Consider follow-up MRI of the knee. Enchondroma is favored among differential. Disposition Clinical Impression: Erythema nodosum Disposition: HOME SELF-CARE Condition: Good Instructions (If sedation given, give patient instructions): Autoimmune Disease (ED) Additional Instructions: Please use medication as discussed. Please follow up with family doctor if symptoms have not improved over the next two days. Please return to the emergency room if your symptoms increase or worsen or for any other concerns. Prescriptions: Ibuprofen [Motrin] 600 mg PO Q8HR PRN #20 tab PRN Reason: Pain Is patient prescribed a controlled substance at d/c from ED?: No Referrals: Demar Sam MD [Primary Care Provider] - 1-2 days Time of Disposition: 10:26
--- NOTE | 2019-11-21 10:00 | XR ---
EXAMINATION TYPE: XR tibia fibula RT DATE OF EXAM: 11/21/2019 COMPARISON: None HISTORY: Right parks pain and redness x3 days TECHNIQUE: 2 view right tibia and fibula FINDINGS: No acute fractures or dislocations are evident. No suspicious erosions are evident. Soft ti ssues appear normal. Along the medial metaphyseal tibia there is some bulging and thinning of the cortex. Enchondroma is f avored among the differential. Consider follow-up with MRI of the knee. Correlate with location of pa tient's pain and redness. IMPRESSION: 1. No acute changes. 2. Some lucency at the metaphyseal medial tibial cortex. Consider follow-up MRI of the knee.
[2019-11-21] MEDS ORDERED: ACET/COD 300 MG/30 MG STARTER PACK 6 TAB BTL PO STA (10:31)
== END 2019-11-21 10:49 | disposition home or self-care (01) ==
LOC: EC 08:40
DX: L52 Erythema nodosum (principal); J44.9 Chronic obstructive pulmonary disease, unspecified; M79.7 Fibromyalgia; G40.909 Epilepsy, unspecified, not intractable, without status epilepticus; G25.81 Restless legs syndrome; F90.9 Attention-deficit hyperactivity disorder, unspecified type; F41.9 Anxiety disorder, unspecified; F31.9 Bipolar disorder, unspecified; F17.200 Nicotine dependence, unspecified, uncomplicated; Z79.51 Long term (current) use of inhaled steroids; Z79.899 Other long term (current) drug therapy; Z79.1 Long term (current) use of non-steroidal anti-inflammatories (NSAID); Z79.52 Long term (current) use of systemic steroids; Z88.2 Allergy status to sulfonamides; Z88.1 Allergy status to other antibiotic agents
CPT/HCPCS: 99284

== ENCOUNTER 2019-11-22 04:32 | Emergency (ER) | payer OTHER ==
[2019-11-22] MEDS ORDERED: ORPHENADRINE 30 MG/ML 2 ML VIAL IM STA (05:28)
[2019-11-22] MEDS ORDERED: KETOROLAC 30 MG/ML 1 ML VIAL IVP ONE (05:28)
[2019-11-22 05:48] LABS: Basophils # (A) 0.1 k/uL (0-0.2); Basophils % (A) 0 %; Eosinophils # (A) 0.3 k/uL (0-0.7); Eosinophils % (A) 2 %; HCT 34.4 % (34.0-46.0); HGB 11.3 gm/dL (11.4-16.0); Lymphocytes # (A) 2.5 k/uL (1.0-4.8); Lymphocytes % (A) 12 %; MCHC 32.8 g/dL (31.0-37.0); MCV 88.5 fL (80.0-100.0); Mean Platelet Volume 6.8; Monocytes # (A) 0.6 k/uL (0-1.0); Monocytes % (A) 3 %; Neutrophils # (A) 18.4 k/uL (1.3-7.7); Neutrophils % (A) 83 %; Platelet Count 400 k/uL (150-450); RBC 3.89 m/uL (3.80-5.40); RDW 14.8 % (11.5-15.5); WBC 22.1 k/uL (3.8-10.6)
[2019-11-22 05:56] LABS: African American GFR (CKD) >90 (>60 ml/min/1.73 sqM); Albumin 4.2 g/dL (3.5-5.0); Anion Gap 8 mmol/L; Calcium 9.4 mg/dL (8.4-10.2); Carbon Dioxide 25 mmol/L (22-30); Chloride 103 mmol/L (98-107); Creatine Kinase 44 U/L (30-135); Glucose 93 mg/dL (74-99); Non-African American GFR(CKD) >90 (>60 ml/min/1.73 sqM); Sodium 136 mmol/L (137-145); Total Bilirubin 0.5 mg/dL (0.2-1.3)
[2019-11-22 06:00] LABS: Blood Urea Nitrogen 18 mg/dL (7-17)
[2019-11-22 06:01] LABS: ALT 23 U/L (4-34); AST 41 U/L (14-36); Alkaline Phosphatase 85 U/L (38-126); Magnesium 1.8 mg/dL (1.6-2.3)
[2019-11-22 06:44] VITALS: BP 129/79; PULSE 77; RESP 20; TEMP 98.3
--- NOTE | 2019-11-22 06:48 | ED ---
General Adult HPI - General Chief complaint: Extremity Problem,Nontraumatic Stated complaint: Right leg pain Time Seen by Provider: 11/22/19 05:27 Source: patient Mode of arrival: wheelchair Limitations: no limitations - History of Present Illness Initial comments: Magi is a 39-year-old female with history of chronic pain. Presents to the emergency department today for reevaluation of right lower extremity pain. Patient was seen and evaluated yesterday for anterior parks pain, she was diagnosed with erythema nodosum discharged home with anti-inflammatories and advised to follow-up with primary care. Patient reports that she's been unable to walk due to the pain, she's been limping. She reports the pain is getting worse. She does report that she was able to swim throughout the day yesterday which was comfortable. Patient reports she was unable to sleep due to the discomfort tonight. - Related Data Home Medications Medication Instructions Recorded Confirmed Dextroamphetamine/Amphetamine 20 mg PO BID 02/07/14 03/03/19 [Adderall] ALPRAZolam [Xanax] 1 mg PO TID PRN 08/11/18 03/03/19 Albuterol Inhaler (Mhu) [Ventolin 1 - 2 puff INHALATION Q6HR PRN 08/11/18 03/03/19 Hfa Inhaler] Budesonide-Formot 160-4.5 Mcg 2 puff INHALATION BID 08/11/18 03/03/19 [Symbicort 160-4.5 Mcg Inhaler] Ergocalciferol (Vitamin D2) 50,000 unit PO Q30D 08/11/18 03/03/19 [Vitamin D2] Fluticasone Nasal [place] [Flonase 1 spray EA NOSTRIL DAILY PRN 08/11/18 03/03/19 Nasal [place]] Gabapentin [Neurontin] 600 mg PO QID 08/11/18 03/03/19 Hydrochlorothiazide 12.5 mg PO DIRECTED PRN 08/11/18 03/03/19 Ibuprofen [Motrin] 800 mg PO QID 08/11/18 03/03/19 rOPINIRole HCL [Requip] 0.5 mg PO HS 08/11/18 03/03/19 tiZANidine HCL [Zanaflex] 2 mg PO DAILY 08/11/18 03/03/19 traZODone HCL 100 mg PO HS 08/11/18 03/03/19 FLUoxetine HCL [PROzac] 20 mg PO DAILY 09/11/18 03/03/19 Ferrous Sulfate [Feosol] 325 mg PO DAILY 01/20/19 03/03/19 Glucosamine/Chondr Marley A Sod [Osteo 2 each PO DAILY 01/20/19 03/03/19 Bi-Flex Caplet] methylPREDNISolone Dose Pack 4 mg PO DIRECTED 03/03/19 03/03/19 [Medrol Dose Pack] Previous Rx's Medication Instructions Recorded traMADol HCl [Ultram] 50 mg PO Q4HR PRN 3 Days #18 tab 01/23/19 Clindamycin [Cleocin] 150 mg PO Q6H #28 capsule 08/11/19 Fluconazole [Diflucan] 150 mg PO ONCE #1 tab 08/11/19 valACYclovir [Valtrex] 500 mg PO BID #20 tab 08/11/19 Ibuprofen [Motrin] 600 mg PO Q8HR PRN #20 tab 11/21/19 Allergies Allergy/AdvReac Type Severity Reaction Status Date / Time sulfamethoxazole Allergy Rash/Hives, Verified 11/22/19 04:43 [From Bactrim] SEIZURE trimethoprim [From Bactrim] Allergy Rash/Hives Verified 11/22/19 04:43 tdap Allergy Anaphylaxis Uncoded 11/22/19 04:43 Review of Systems ROS Statement: Those systems with pertinent positive or pertinent negative responses have been documented in the HPI. ROS Other: All systems not noted in ROS Statement are negative. Past Medical History Past Medical History: Asthma, COPD, Fibromyalgia, GERD/Reflux, Osteoarthritis (OA), Respiratory Disorder, Seizure Disorder Additional Past Medical History / Comment(s): HX PANCREATITIS. RESTLESS LEG. "INFLAMMED LUNG AND LIVER 10/2018." ANEMIA. Low Blood Pressure. 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 History of Any Multi-Drug Resistant Organisms: None Reported Past Surgical History: Appendectomy, Breast Surgery, Section, Cholecystectomy, Orthopedic Surgery, Tonsillectomy, Tubal Ligation, Uterine Ablation Additional Past Surgical History / Comment(s): PANNICULECTOMY, Left collarbone surgery - plate placement, bone graft; bilateral carpal tunnel; benign right breast biopsy. Left C6 Transforaminal Epidural steroid injection Jan 2017 at [facility]. C5/6 nerve Root block Jan 2017 at [facility]; PAIN CLINIC PROCEDU RES, last 12/01/18. Colonoscopy, EGD. L thumb Past Anesthesia/Blood Transfusion Reactions: No Reported Reaction Past Psychological History: ADD/ADHD, Anxiety, Bipolar, Depression Smoking Status: Current every day smoker Past Alcohol Use History: Occasional Past Drug Use History: Marijuana - Past Family History Mother Family Medical History: Blood Disorder, Deep Vein Thrombosis (DVT) Additional Family Medical History / Comment(s): Leiden factor 5, General Exam - General Exam Comments Initial Comments: Physical Exam GENERAL: Patient is well-developed and well-nourished. Patient is nontoxic and well-hydrated and is in no distress. HENT: Normocephalic, Atraumatic. EYES: PERRL, EOMI PULMONARY: Unlabored respirations. CARDIOVASCULAR: RRR Warm and well perfused extremities ABDOMEN: Non-distended SKIN: Lesions on anterior right parks, mildly tender to palpation : Deferred NEUROLOGIC: Alert and oriented Normal speech Normal gait MUSCULOSKELETAL: Moving all extremities with no apparent injury No lower extremity edema PSYCHIATRIC: No SI/HI Limitations: no limitations Course Vital Signs 11/22/19 11/22/19 04:40 06:00 Temperature 98.2 F 98.3 F Pulse Rate 119 H 77 Respiratory 16 20 Rate Blood Pressure 114/54 129/79 O2 Sat by Pulse 100 97 Oximetry Medical Decision Making - Medical Decision Making The patient was seen and evaluated, history is obtained from patient and review of medical record Patient with persistent leg pain Labs and medications ordered Labs with leukocytosis, consistent with inflammatory reaction such as erythema nodosum patient was re-evaluated, reported improvement with Toradol and Norflex Does report hx of chronic back pain, usually gets injections but has not been able to due to COVID closures No previous episodes of Sciatica Discussed possibility that she is experiencing sciatica, offered steroids however patient declined stating that they make her agitated Patient crying, expresses concern she could have a DVT because her mother had factor 5 leiden and diet from clots US ordered - Lab Data Result diagrams: 11/22/19 05:42 11/22/19 05:42 Lab Results 11/22/19 11/22/19 Range/Units 05:42 05:42 WBC 22.1 H (3.8-10.6) k/uL RBC 3.89 (3.80-5.40) m/uL Hgb 11.3 L (11.4-16.0) gm/dL Hct 34.4 (34.0-46.0) % MCV 88.5 (80.0-100.0) fL MCH 29.0 (25.0-35.0) pg MCHC 32.8 (31.0-37.0) g/dL RDW 14.8 (11.5-15.5) % Plt Count 400 (150-450) k/uL Neutrophils % 83 % Lymphocytes % 12 % Monocytes % 3 % Eosinophils % 2 % Basophils % 0 % Neutrophils # 18.4 H (1.3-7.7) k/uL Lymphocytes # 2.5 (1.0-4.8) k/uL Monocytes # 0.6 (0-1.0) k/uL Eosinophils # 0.3 (0-0.7) k/uL Basophils # 0.1 (0-0.2) k/uL Sodium 136 L (137-145) mmol/L Potassium 5.0 (3.5-5.1) mmol/L Chloride 103 (98-107) mmol/L Carbon Dioxide 25 (22-30) mmol/L Anion Gap 8 mmol/L BUN 18 H (7-17) mg/dL Creatinine 0.55 (0.52-1.04) mg/dL Est GFR (CKD-EPI)AfAm >90 (>60 ml/min/1.73 sqM) Est GFR (CKD-EPI)NonAf >90 (>60 ml/min/1.73 sqM) Glucose 93 (74-99) mg/dL Calcium 9.4 (8.4-10.2) mg/dL Magnesium 1.8 (1.6-2.3) mg/dL Total Bilirubin 0.5 (0.2-1.3) mg/dL AST 41 H (14-36) U/L ALT 23 (4-34) U/L Alkaline Phosphatase 85 (38-126) U/L Creatine Kinase 44 (30-135) U/L Total Protein 8.0 (6.3-8.2) g/dL Albumin 4.2 (3.5-5.0) g/dL Disposition Clinical Impression: Erythema nodosum Disposition: HOME SELF-CARE Condition: Stable Instructions (If sedation given, give patient instructions): Sciatica (ED) Is patient prescribed a controlled substance at d/c from ED?: No Referrals: Demar Sam MD [Primary Care Provider] - 1-2 days
--- NOTE | 2019-11-22 07:25 | US ---
EXAMINATION TYPE: US venous doppler duplex LE RT DATE OF EXAM: 11/22/2019 7:16 AM COMPARISON: NONE CLINICAL HISTORY: pain, edema, family hx of Factor 5 leiden. SIDE PERFORMED: Right TECHNIQUE: The lower extremity deep venous system is examined utilizing real time linear array sonog reba with graded compression, doppler sonography and color-flow sonography. VESSELS IMAGED: External Iliac Vein (EIV) Common Femoral Vein Deep Femoral Vein Greater Saphenous Vein * Femoral Vein Popliteal Vein Proximal Calf Veins (* superficial vessels) Right Leg: Negative for DVT IMPRESSION: 1. No diagnostic evidence of DVT as visualized.
== END 2019-11-22 08:06 | disposition home or self-care (01) ==
LOC: EC 04:32
DX: L52 Erythema nodosum (principal); F17.200 Nicotine dependence, unspecified, uncomplicated; J44.9 Chronic obstructive pulmonary disease, unspecified; F41.9 Anxiety disorder, unspecified; F90.9 Attention-deficit hyperactivity disorder, unspecified type; K21.9 Gastro-esophageal reflux disease without esophagitis; M19.90 Unspecified osteoarthritis, unspecified site; M79.7 Fibromyalgia; G40.909 Epilepsy, unspecified, not intractable, without status epilepticus; Z79.51 Long term (current) use of inhaled steroids; Z79.1 Long term (current) use of non-steroidal anti-inflammatories (NSAID); Z79.899 Other long term (current) drug therapy; Z88.2 Allergy status to sulfonamides; Z88.7 Allergy status to serum and vaccine
CPT/HCPCS: 99284; 96374; 96372; 36415; 80053; 82550; 83735; 85025; 93971; J2360; J1885

== ENCOUNTER → 2020-10-25 | Outpatient (CLI) | payer OTHER ==
--- NOTE | 2020-10-25 12:02 | XR ---
EXAMINATION TYPE: XR hand limited RT DATE OF EXAM: 10/25/2020 COMPARISON: NONE HISTORY: 40-year-old female M7 9.641, osteoarthritis, pain TECHNIQUE: 3 views FINDINGS: There is moderate degenerative change at the first CMC joint with joint space narrowing and subchondr al sclerosis. Tiny 1 mm loose body is noted. Mild osteophytic spurring also noted at the third and fi fth PIP joints. No acute fracture, subluxation, or dislocation. IMPRESSION: Moderate osteoarthrosis at the basal joint of the thumb. Mild osteoarthritic spurring at the third an d fifth DIP joints.
== END | disposition home or self-care (01) ==
LOC: RADXRMAIN 09:47
PROVIDERS: ATTEND Family Medicine
DX: M19.041 Primary osteoarthritis, right hand (principal); M77.8 Other enthesopathies, not elsewhere classified

== ENCOUNTER → 2020-12-27 | Outpatient (CLI) | payer OTHER ==
[2020-12-27 23:03] LABS: Basophils # (A) 0.16 X 10*3/uL (0.00-0.10); Basophils % (A) 1.1 %; Eosinophils # (A) 0.28 X 10*3/uL (0.04-0.35); Eosinophils % (A) 1.9 %; HCT 36.9 % (37.2-46.3); HGB 12.2 g/dL (12.0-15.0); Lymphocytes # (A) 2.81 X 10*3/uL (0.90-5.00); MCH 31.9 pg (27.0-32.0); MCHC 33.1 g/dL (32.0-37.0); MCV 96.3 fL (80.0-97.0); Mean Platelet Volume 10.6 fL (9.5-12.2); Monocytes # (A) 0.56 X 10*3/uL (0.20-1.00); Monocytes % (A) 3.8 %; Neutrophils # (A) 10.91 X 10*3/uL (1.80-7.70); Neutrophils % (A) 73.8 %; Platelet Count 472 X 10*3/uL (140-440); RBC 3.83 X 10*6/uL (4.10-5.20); RDW 14.2 % (11.5-14.5); WBC 14.78 X 10*3/uL (4.50-10.00)
[2020-12-28 09:43] LABS: African American GFR (CKD) 123.9 (60.0-200.0); Albumin 4.6 g/dL (3.80-4.90); Albumin/Globulin Ratio 1.28 (1.60-3.17); Anion Gap 10.2 mmol/L (4.00-12.00); Carbon Dioxide 18.8 mmol/L (21.6-31.8); Globulin 3.6 g/dL (1.6-3.3); Non-African American GFR(CKD) 106.9 (60.0-200.0); Potassium 3.3 mmol/L (3.5-5.5); Total Bilirubin 0.2 mg/dL (0.2-1.2); Total Protein 8.2 g/dL (6.2-8.2)
== END | disposition home or self-care (01) ==
LOC: LABWHC1 16:30
PROVIDERS: ATTEND Psychiatry & Neurology Neurology
DX: R53.83 Other fatigue (principal); R25.2 Cramp and spasm
CPT/HCPCS: 36415; 80053; 85025

== ENCOUNTER 2023-05-21 09:00 | Day surgery (SDC) | payer OTHER ==
[2023-05-15 10:04] VITALS: BMI 27.4
[~2023-05-21 09:00] MED LIST changes: +ACETAMINOPHEN TAB 500 MG TAB PO PRN; -DEXAMETHASONE SOD PHOSPHATE 10 MG/ML 1 ML VIAL IV ONE; +DEXAMETHASONE SOD PHOSPHATE 4 MG/ML 1 ML VIAL IV ONE; +HEPARIN SODIUM,PORCINE 5,000 UNIT/ML 1 ML VIAL SQ PRN; -KETOROLAC 30 MG/ML 1 ML VIAL IVP SCH; +LIDOCAINE 1% (10MG/ML) FOR IV START INTRADERMA PRN; -LIDOCAINE 1% 20 ML VIAL (10MG/ML) FOR IV START INTRADERMA PRN; -ONDANSETRON 4 MG/2 ML VIAL IVP PRN; -SCOPOLAMINE 1.5MG/72HR PATCH TRANSDERM ONE; +fentaNYL (PF) 50 MCG/ML 2 ML AMP IV PRN
[2023-05-21] MEDS ORDERED: LACTATED RINGERS 1,000 ML IV ONE (09:15)
[2023-05-21] MEDS ORDERED: fentaNYL (PF) 50 MCG/ML 2 ML AMP ONE (10:29)
[2023-05-21] MEDS ORDERED: KETAMINE HCL IN 0.9 % NACL 50 MG/5 ML SYRINGE ONE (10:29)
[2023-05-21] MEDS ORDERED: MIDAZOLAM 2 MG/2 ML VIAL ONE (10:29)
[2023-05-21] MEDS ORDERED: LIDOCAINE 4% LTA KIT (4 ML) TOPICAL ONE (10:29)
[2023-05-21] MEDS ORDERED: SUCCINYLCHOLINE CHLORIDE 200 MG/10 ML VIAL IV ONE (10:29)
[2023-05-21] MEDS ORDERED: PROPOFOL 10 MG/ML 20 ML VIAL IV ONE (10:29)
[2023-05-21] MEDS ORDERED: KETOROLAC 15 MG/ML 1 ML VIAL ONE (10:29)
[2023-05-21] MEDS ORDERED: HYDROmorphone (PF) 1 MG/ML ONE (10:29)
[2023-05-21] MEDS ORDERED: LIDOCAINE 1% INJ 10MG/ML (20 ML MDV) ONE (10:29)
[2023-05-21] MEDS ORDERED: BUPIVACAINE (PF) 0.25% 30 ML VIAL SQ ONE (10:48)
[2023-05-21] MEDS ORDERED: LIDOCAINE 0.5%-EPI 1:200,000 50 ML VIAL SQ ONE (11:10)
--- NOTE | 2023-05-21 11:31 | P.OP ---
Date of Procedure: 05/21/23 Preoperative Diagnosis: Right buttock lipoma Postoperative Diagnosis: Right buttock lipoma Procedure(s) Performed: Excision of right buttock lipoma Anesthesia: ZARINA Surgeon: Rip Suarez Pathology: other (Right buttock lipoma) Condition: stable Disposition: PACU Description of Procedure: The patient's placed on the operative table in the supine position. She received general trach tube anesthesia. She was then placed lateral position. Her right buttock was prepped and draped usual fashion. Patient had a 10 cm the colon. The skin was incised over the lipoma. Using electrocautery the subcutaneous tissue divided. And the lipoma was dissected free. Lipoma measured roughly 10 cm in diameter. The wounds better hemostasis. The skin was closed with interrupted 3-0 Monocryl suture. Dermabond was applied. Patient top she will patient sent to recovery room stable condition.
[2023-05-21 11:47] VITALS: TEMP 98.4
[2023-05-21 13:36] VITALS: BP 93/56; PULSE 83; RESP 17
== END 2023-05-21 13:30 | disposition home or self-care (01) ==
LOC: OR 09:00
PROVIDERS: ATTEND Surgery
DX: D17.1 Benign lipomatous neoplasm of skin and subcutaneous tissue of trunk (principal); J45.909 Unspecified asthma, uncomplicated; K21.9 Gastro-esophageal reflux disease without esophagitis; F12.90 Cannabis use, unspecified, uncomplicated; G40.909 Epilepsy, unspecified, not intractable, without status epilepticus; Z79.51 Long term (current) use of inhaled steroids; Z79.899 Other long term (current) drug therapy
CPT/HCPCS: 88304; 21931; J2250; J0330; J1644; J1100; J2405; J2001; J3010; J1170 ×2; J1885; J2704